=== PATIENT | female | born 1965 | race Caucasian/White ===

== ENCOUNTER 2020-07-27 07:40 | Outpatient (REF) | payer OTHER, SELFPAY ==
--- NOTE | 2020-07-27 07:50 | XR_ITS ---
EXAMINATION: XR CHEST CLINICAL INFORMATION: Encounter for screening for respiratory tuberculosis. COMPARISON: 2 views of the chest 07/10/2018 TECHNIQUE: 2 views of the chest were obtained. FINDINGS: Cardiomegaly mediastinal silhouette is normal. Lungs are clear without consolidation, pleural effusion or pneumothorax. No acute osseous abnormalities. IMPRESSION: No acute cardiopulmonary process.
== END 2020-07-27 07:41 | disposition home or self-care (01) ==
LOC: HO.XRAY 07:40
PROVIDERS: PCP Emergency Medicine; Visit Provider Emergency Medicine
DX: Z11.1 Encounter for screening for respiratory tuberculosis (principal)
CPT/HCPCS: 71046

== ENCOUNTER 2020-10-29 08:10 | Outpatient (REF) | payer OTHER, SELFPAY ==
--- NOTE | 2020-10-29 08:46 | MM_ITS ---
EXAMINATION: MM SCREENING DIGITAL BREAST TOMOSYNTHESIS, BILATERAL CLINICAL INFORMATION: Screening. Asymptomatic. The lifetime risk of breast cancer based on the Tyrer-Cuzick Model is 5%. COMPARISON: Mammography: 08/19/2019, 07/11/2018 TECHNIQUE: Digital breast tomosynthesis is performed in both the craniocaudal and mediolateral oblique views along with computer-aided detection (CAD). Synthesized 2D images are generated from the tomosynthesis. Additional left MLO view is provided. FINDINGS: There are scattered areas of fibroglandular density (ACR BI-RADS breast composition Category b). There are no significant masses, abnormal calcifications, or other abnormalities. There are vascular calcifications again noted anterior right breast and a few scattered round calcifications on the left. The bilateral axilla and skin contours are unremarkable. MM/MM tomosynthesis screening BI IMPRESSION: No mammographic evidence of malignancy. ASSESSMENT: BI-RADS 2: Benign RECOMMENDATION: Routine annual mammography screening. This patient's information was entered into a reminder system with a target due date for their next mammogram.
== END 2020-10-29 08:11 | disposition home or self-care (01) ==
LOC: HO.MAMMO 08:10
PROVIDERS: PCP Emergency Medicine; Visit Provider Emergency Medicine
DX: Z12.31 Encounter for screening mammogram for malignant neoplasm of breast (principal)
CPT/HCPCS: 77063; 77067

== ENCOUNTER 2020-11-18 16:12 | Outpatient (REF) | payer OTHER, SELFPAY | END 2020-11-18 16:13 | disposition home or self-care (01) | LOC: HO.LAB 16:12 | PROVIDERS: Visit Provider Internal Medicine | DX: Z20.822 Contact with and (suspected) exposure to COVID-19 (principal) | CPT/HCPCS: 36415; C9803; U0003 ==

== ENCOUNTER 2022-01-11 15:12 | Outpatient (REF) | payer MEDICAID, SELFPAY ==
--- NOTE | ~2022-01-11 | MM_ITS ---
EXAMINATION: MM SCREENING DIGITAL BREAST TOMOSYNTHESIS, BILATERAL CLINICAL INFORMATION: Screening. Asymptomatic. The lifetime risk of breast cancer based on the Tyrer-Cuzick Model is 5.4%. COMPARISON: Mammography: October 29, 2020 and studies dating back to February 05, 2014 TECHNIQUE: Digital breast tomosynthesis is performed in both the craniocaudal and mediolateral oblique views along with computer-aided detection (CAD). Synthesized 2D images are generated from the tomosynthesis. FINDINGS: There are scattered areas of fibroglandular density (ACR BI-RADS breast composition Category b). There are no significant masses, abnormal calcifications, or other abnormalities. MM/MM tomosynthesis screening BI IMPRESSION: There are no significant changes from prior study. ASSESSMENT: BI-RADS 1: Negative RECOMMENDATION: Routine annual mammography screening. This patient's information was entered into a reminder system with a target due date for their next mammogram.
== END 2022-01-11 15:13 | disposition home or self-care (01) ==
LOC: HO.MAMMO 15:12
PROVIDERS: PCP Family Medicine; Visit Provider Family Medicine
DX: Z12.31 Encounter for screening mammogram for malignant neoplasm of breast (principal)
CPT/HCPCS: 77063; 77067

== ENCOUNTER 2022-04-04 10:30 | Outpatient (REF) | payer MEDICAID, SELFPAY ==
--- NOTE | ~2022-04-04 | XR_ITS ---
EXAMINATION: XR CHEST CLINICAL INFORMATION: Encounter for respiratory tuberculosis. COMPARISON: Chest x-ray 07/27/2020 TECHNIQUE: 2 views of the chest were obtained. FINDINGS: No significant abnormality is noted involving the heart, lungs, mediastinum, bony thorax or soft tissues. XR/XR chest 2V IMPRESSION: Unremarkable chest examination.
== END 2022-04-04 10:31 | disposition home or self-care (01) ==
LOC: HO.XRAY 10:30
PROVIDERS: PCP Family Medicine; Visit Provider Family Medicine
DX: Z11.1 Encounter for screening for respiratory tuberculosis (principal)
CPT/HCPCS: 71046

== ENCOUNTER 2022-05-29 15:00 | Outpatient (RCR) | payer MEDICAID, SELFPAY ==
[2022-05-03 07:11] VITALS: BP 139/70; PULSE 69; O2SAT 95
== END 2022-06-06 11:46 | disposition home or self-care (01) ==
LOC: HO.PT 15:00
PROVIDERS: PCP Family Medicine; Visit Provider Family Medicine
DX: M54.2 Cervicalgia (principal)
CPT/HCPCS: 97110; 97112; 97161

== ENCOUNTER 2022-09-04 10:29 | Outpatient (REF) | payer MEDICAID, SELFPAY ==
[2022-09-04 11:33] LABS: COVID-19 Test Negative (Negative); IDNOW Serial# 9DB6401D
== END 2022-09-04 10:30 | disposition home or self-care (01) ==
LOC: HO.LAB 10:29
PROVIDERS: Visit Provider Internal Medicine
DX: Z20.822 Contact with and (suspected) exposure to COVID-19 (principal)
CPT/HCPCS: 87635; 99202; C9803

== ENCOUNTER 2023-01-17 08:27 | Outpatient (REF) | payer MEDICAID, SELFPAY ==
--- NOTE | ~2023-01-17 | MM_ITS ---
EXAMINATION: MM SCREENING DIGITAL BREAST TOMOSYNTHESIS, BILATERAL CLINICAL INFORMATION: Screening. Asymptomatic. The lifetime risk of breast cancer based on the Tyrer-Cuzick Model is 5%. COMPARISON: Multiple prior mammography, most recent 01/11/2022 TECHNIQUE: Digital breast tomosynthesis is performed in both the craniocaudal and mediolateral oblique views along with computer-aided detection (CAD). Synthesized 2D images are generated from the tomosynthesis. Additional bilateral MLO views are provided. FINDINGS: There are scattered areas of fibroglandular density (ACR BI-RADS breast composition Category b). There are no significant masses, abnormal calcifications, or other abnormalities. Parenchymal pattern is similar to prior studies. There is no developing density or architectural abnormality. The axilla and skin contours are unremarkable. No significant changes. MM/MM tomosynthesis screening BI IMPRESSION: No mammographic evidence of malignancy. ASSESSMENT: BI-RADS 1: Negative RECOMMENDATION: Routine annual mammography screening. This patient's information was entered into a reminder system with a target due date for their next mammogram.
== END 2023-01-17 08:28 | disposition home or self-care (01) ==
LOC: HO.MAMMO 08:27
PROVIDERS: PCP Family Medicine; Visit Provider Family Medicine
DX: Z12.31 Encounter for screening mammogram for malignant neoplasm of breast (principal)
CPT/HCPCS: 77063; 77067

== ENCOUNTER 2023-08-30 17:14 | Outpatient (REF) | payer MEDICAID, SELFPAY ==
[2023-08-30 17:28] LABS: Appearance Urine Cloudy; Color Urine Yellow; Glucose Urine UA >=1000 mg/dL (Negative); Leukocyte Esterase Urine Small (1+) (Negative); Nitrite Urine Negative (Negative); PH 5.5 (5.0-9.0); Specific Gravity - Urine 1.025 (1.005-1.025); UMIC TRIGGER UACC YES; Urine Blood Negative (Negative); Urine Ketones Negative (Negative); Urine Protein Negative (Neg-Trace)
[2023-08-30 17:34] LABS: Bacteria Urine 2+ (None Seen); Hyaline Casts Urine 0-2 /LPF (0-2); RBC Urine 0-2 /HPF (0-2); UACC Culture Trigger YES; WBC Urine >50 /HPF (0-5)
== END 2023-08-30 17:15 | disposition home or self-care (01) ==
LOC: HO.HHCLNP 17:14
PROVIDERS: Visit Provider Student in an Organized Health Care Education/Training Program
DX: R30.0 Dysuria (principal)
CPT/HCPCS: 81001; 87086; 87088; 87186

== ENCOUNTER 2023-10-09 08:07 | Outpatient (REF) | payer MEDICAID, SELFPAY ==
[2023-10-09 11:18] LABS: MANUAL DIFF FLAG NO
[2023-10-09 11:41] LABS: Basophils Percent Auto 0.3 % (0-2); Eosinophils Absolute Auto 0.2 X10*3/uL (0.0-0.4); Eosinophils Percent Auto 1.5 % (0-4); Hematocrit 44.3 % (37.0-47.0); Hemoglobin 14.9 g/dl (12.0-16.0); Imm Gran Abs Auto 0.03 X10*3/uL (0.00-0.03); Imm Gran Pct Auto 0.3 % (0.0-0.4); Lymphocytes Absolute Auto 3.9 X10*3/uL (1.2-4.9); Lymphocytes Percent Auto 33.3 % (20-40); Mean Corpuscular HGB Conc 33.6 g/dl (31.0-35.0); Mean Corpuscular Hemoglobin 28.5 pg (27.0-33.0); Mean Corpuscular Volume 84.7 fL (80.0-98.0); Mean Platelet Volume 11.2 fL (9.4-12.3); Monocytes Absolute Auto 0.7 X10*3/uL (0.1-1.2); Monocytes Percent Auto 5.8 % (2-11); Neutrophils Absolute Auto 6.8 x10*3/uL (2.0-8.3); Neutrophils Percent Auto 58.8 % (45-73); Platelet Count 209 X10*3/uL (160-400); Red Blood Count 5.23 X10*6/uL (4.20-5.50); Red Cell Distribution Width 12.7 % (11.0-16.0); White Blood Count 11.6 X10*3/uL (4.8-10.8)
[2023-10-09 12:22] LABS: Alanine Aminotransferase 13 U/L (0-31); Albumin Level 4.2 g/dL (3.5-5.0); Alkaline Phosphatase 76 U/L (39-117); Anion Gap 12 (12-20); Aspartate Amino Transferase 16 U/L (5-31); Bilirubin Total 0.5 mg/dL (0.0-1.0); Blood Urea Nitrogen 13 mg/dL (9-16); Calcium 9.8 mg/dL (8.4-10.2); Carbon Dioxide 27 mmol/L (22-29); Chloride 105 mmol/L (96-108); Cholesterol 160 mg/dL (<200); Estimated Glomerular Filt Rate > 60; Glucose Random 155 mg/dL (60-115); HDL Cholesterol 56 mg/dL (>40); LDL Cholesterol Calculated 87 mg/dL (<100); Potassium 4.4 mmol/L (3.3-5.1); Sodium 140 mmol/L (135-145); Total Protein 7.7 g/dL (6.5-8.0); Triglycerides 89 mg/dL (<150)
== END 2023-10-09 08:08 | disposition home or self-care (01) ==
LOC: HO.HHCL 08:07
PROVIDERS: Visit Provider Family Medicine
DX: E66.9 Obesity, unspecified (principal)
CPT/HCPCS: 36415; 80053; 80061; 84443; 85025

== ENCOUNTER 2023-12-23 10:09 | Outpatient (REF) | payer MEDICAID, SELFPAY ==
[2023-12-23 14:24] LABS: MANUAL DIFF FLAG NO
[2023-12-23 14:35] LABS: Basophils Percent Auto 0.5 % (0-2); Eosinophils Absolute Auto 0.2 X10*3/uL (0.0-0.4); Eosinophils Percent Auto 2.3 % (0-4); Hematocrit 41.9 % (37.0-47.0); Hemoglobin 14.3 g/dl (12.0-16.0); Imm Gran Abs Auto 0.02 X10*3/uL (0.00-0.03); Imm Gran Pct Auto 0.2 % (0.0-0.4); Lymphocytes Absolute Auto 3.5 X10*3/uL (1.2-4.9); Lymphocytes Percent Auto 42.8 % (20-40); Mean Corpuscular HGB Conc 34.1 g/dl (31.0-35.0); Mean Corpuscular Hemoglobin 28.5 pg (27.0-33.0); Mean Corpuscular Volume 83.5 fL (80.0-98.0); Mean Platelet Volume 11.2 fL (9.4-12.3); Monocytes Absolute Auto 0.6 X10*3/uL (0.1-1.2); Monocytes Percent Auto 6.7 % (2-11); Neutrophils Absolute Auto 3.9 x10*3/uL (2.0-8.3); Neutrophils Percent Auto 47.5 % (45-73); Platelet Count 200 X10*3/uL (160-400); Red Blood Count 5.02 X10*6/uL (4.20-5.50); Red Cell Distribution Width 12.5 % (11.0-16.0); White Blood Count 8.2 X10*3/uL (4.8-10.8)
[2023-12-23 15:17] LABS: Erythrocyte Sedimentation Rate 10 MM/HR (0-20)
[2023-12-23 15:21] LABS: Alanine Aminotransferase 14 U/L (0-31); Albumin Level 3.8 g/dL (3.5-5.0); Alkaline Phosphatase 66 U/L (39-117); Anion Gap 13 (12-20); Aspartate Amino Transferase 15 U/L (5-31); Bilirubin Total 0.6 mg/dL (0.0-1.0); Blood Urea Nitrogen 8 mg/dL (9-16); C Reactive Protein 0.33 mg/dL (< or = 0.50); Calcium 9.2 mg/dL (8.4-10.2); Carbon Dioxide 28 mmol/L (22-29); Chloride 105 mmol/L (96-108); Estimated Glomerular Filt Rate > 60; Glucose Random 124 mg/dL (60-115); Potassium 3.9 mmol/L (3.3-5.1); Sodium 142 mmol/L (135-145)
[2023-12-23 15:40] LABS: TSH reflex Free T4 0.54 uIU/mL (0.32-4.0); Vitamin D 25-OH Total 38.6 ng/mL (>30)
[2023-12-24 07:54] LABS: HIV AB/AG Nonreactive (Nonreactive); HIV Num 1 0.05 S/CO (0.00-0.99); ~Hepatitis C Antibody Nonreactive (Nonreactive)
== END 2023-12-23 10:10 | disposition home or self-care (01) ==
LOC: HO.CHCLDS 10:09
PROVIDERS: Visit Provider Family Medicine
DX: Z11.4 Encounter for screening for human immunodeficiency virus [HIV] (principal); L29.9 Pruritus, unspecified
CPT/HCPCS: 36415; 80053; 82306; 84443; 85025; 85652; 86140; 86803; 87389

== ENCOUNTER 2023-12-24 07:38 | Outpatient (REF) | payer MEDICAID, SELFPAY ==
[2023-12-27 16:29] LABS: Zinc 60 mcg/dL (60-130)
== END 2023-12-24 07:39 | disposition home or self-care (01) ==
LOC: HO.LAB 07:38
PROVIDERS: PCP Family Medicine; Visit Provider Family Medicine
DX: L29.9 Pruritus, unspecified (principal)
CPT/HCPCS: 36415; 84630

== ENCOUNTER 2024-01-21 16:26 | Outpatient (REF) | payer MEDICAID, SELFPAY | END 2024-01-21 16:27 | disposition home or self-care (01) | LOC: HO.MAMMO 16:26 | PROVIDERS: PCP Family Medicine; Visit Provider Family Medicine | DX: Z12.31 Encounter for screening mammogram for malignant neoplasm of breast (principal) | CPT/HCPCS: 77063; 77067 ==

== ENCOUNTER → 2024-01-21 16:30 | Outpatient (BNV) | payer MEDICAID, SELFPAY | PROVIDERS: PCP Family Medicine; Visit Provider Radiology Diagnostic Radiology | DX: Z12.31 Encounter for screening mammogram for malignant neoplasm of breast (principal) | CPT/HCPCS: 77063; 77067 ==

== ENCOUNTER 2024-02-06 17:49 | Outpatient (REF) | payer MEDICAID, SELFPAY | END 2024-02-06 17:50 | disposition home or self-care (01) | LOC: HO.CHCLNP 17:49 | PROVIDERS: Visit Provider Family Medicine | DX: Z12.4 Encounter for screening for malignant neoplasm of cervix (principal) | CPT/HCPCS: 88142 ==

== ENCOUNTER 2024-07-04 08:47 | Outpatient (REF) | payer MEDICAID, SELFPAY ==
--- NOTE | ~2024-07-04 | MR_ITS ---
EXAMINATION: MR BRAIN WITHOUT CONTRAST CLINICAL INFORMATION: Chronic daily headache. COMPARISON: None available. TECHNIQUE: MRI of the brain was obtained using routine sequences without contrast. FINDINGS: No focal restricted diffusion is demonstrated to suggest acute or subacute cerebral ischemia. No evidence of acute or chronic hemorrhagic products on heme-sensitive imaging. Scattered periventricular and deep white matter T2 FLAIR hyperintensities most commonly seen with mild underlying microangiopathy. Proportional prominence of the ventricles and sulcal spaces without evidence of obstructive hydrocephalus. No abnormal mass effect. No midline shift. Normal appearance of the pituitary gland. Normal positioning of the cerebellar tonsils. Normal arterial and venous vascular flow voids are present. Normal, homogeneous marrow signal. Mild mucosal thickening of the paranasal sinuses. No signal abnormalities within the mastoids. MR/MR head/brain wo con IMPRESSION: 1. No acute intracranial abnormalities. 2. Mild nonspecific white matter changes most commonly seen with mild underlying microangiopathy. Electronically signed by: Stevie Parmar DO 07/04/2024 09:45 AM EDT
== END 2024-07-04 08:48 | disposition home or self-care (01) ==
LOC: HO.MRI 08:47
PROVIDERS: PCP Family Medicine; Visit Provider Family Medicine
DX: G44.52 New daily persistent headache (NDPH) (principal); G89.29 Other chronic pain
CPT/HCPCS: 70551

== ENCOUNTER 2024-07-07 09:00 | Outpatient (RCR) | payer MEDICAID, SELFPAY ==
[2024-07-01 09:58] VITALS: BP 115/59
== END 2024-08-25 10:11 | disposition home or self-care (01) ==
LOC: HO.PT 09:00
PROVIDERS: PCP Family Medicine; Visit Provider Family Medicine
DX: S03.00XD Dislocation of jaw, unspecified side, subsequent encounter (principal)
CPT/HCPCS: 97110; 97140; 97162

== ENCOUNTER 2024-09-03 11:33 | Outpatient (REF) | payer MEDICAID, SELFPAY ==
[2024-09-06 04:43] LABS: TS Negative Control Passed; TS Panel A 9; TS Panel B 0; TS Positive Control Passed; TSpotTB Positive (Negative)
== END 2024-09-03 11:34 | disposition home or self-care (01) ==
LOC: HO.CHCLDS 11:33
PROVIDERS: Visit Provider Family Medicine
DX: Z11.1 Encounter for screening for respiratory tuberculosis (principal)
CPT/HCPCS: 36415; 86481

== ENCOUNTER 2024-09-09 08:38 | Outpatient (REF) | payer MEDICAID, SELFPAY ==
--- NOTE | ~2024-09-09 | XR_ITS ---
EXAMINATION: XR CHEST CLINICAL INFORMATION: 59 yo F with hx of positive T spot, needs assessment and treatment COMPARISON: Chest radiograph dated 04/04/2022. TECHNIQUE: 2 views of the chest were obtained. FINDINGS: The lungs are clear. The cardiomediastinal silhouette is normal in size. There is no pleural effusion or pneumothorax. No acute osseous abnormality. XR/XR chest 2V IMPRESSION: No acute cardiopulmonary findings. Electronically signed by: Michael Garcia MD 09/09/2024 10:45 AM DREW
== END 2024-09-09 08:39 | disposition home or self-care (01) ==
LOC: HO.HHCX 08:38
PROVIDERS: Visit Provider Family Medicine
DX: Z22.7 Latent tuberculosis (principal)
CPT/HCPCS: 71046

== ENCOUNTER 2024-10-27 06:24 | Outpatient (REF) | payer MEDICAID, SELFPAY ==
--- NOTE | 2024-10-27 | EMG_ITS ---
Left median and ulnar motor and sensory studies were performed. Left radial sensory study was performed, and paraspinal muscles were tested with a needle. IMPRESSION: Mild left ulnar neuropathy across cubital tunnel. MD GONZALO Maddox/IRWIN / [phone]
== END 2024-10-27 06:25 | disposition home or self-care (01) ==
LOC: HO.NEURO 06:24
PROVIDERS: PCP Family Medicine; Visit Provider Family Medicine
DX: M79.2 Neuralgia and neuritis, unspecified (principal)
CPT/HCPCS: 95886; 95910

== ENCOUNTER 2024-11-10 12:40 | Outpatient (AMB) | payer MEDICAID, SELFPAY ==
[2024-11-10 12:50] VITALS: BMI 38.9
--- NOTE | 2024-11-10 12:50 | MHC.OFFVIS ---
Vital Signs 11/10/24 12:50 Height 5 ft 1 in Weight 206 lb BMI 38.9 Intake Visit Reasons: Right shoulder pain and weakness Intake Note: Kristine is a 59 year old right hand dominant female who presents with complaints of progressively worsening right shoulder pain and weakness. She describes her pain as sharp and severe in nature. Most of the pain is along the lateral and superior aspects of her shoulder. Her pain has gotten worse over the last few years in spite of continued non operative treatments. The patient states that she has had 3 cortisone injections in the past. The most recent injection gave her minimal relief. She has failed the last 6 weeks of conservative treatment which has included physical therapy exercises, Tylenol and anti-inflammatory medicines. The patient reports weakness when lifting her right hand above shoulder height. Allergies metformin Adverse Reaction (Severe, Verified 11/10/24 12:57) Diarrhea Medication List - Last Reconciled 11/10/24 by Bacilio Vernon MD aspirin 81 mg PO BEDTIME cholecalciferol (vitamin D3) (Vitamin D3) 50 mcg PO QAM gabapentin 600 mg PO BEDTIME glipizide ER 10 mg PO QAM insulin glargine (Lantus Solostar U-100 Insulin) 44 units subcut DAILY lisinopril 5 mg PO QAM pravastatin 80 mg PO BEDTIME tirzepatide (Mounjaro) mg subcut PFSH Medical History (Updated 11/10/24 @ 13:12 by Bacilio Vernon MD) Diabetes Hypercholesteremia Hypertension Social History (Updated 11/10/24 @ 12:53 by JOSE LUIS Bermudez) Alcohol intake: never Patient Tobacco Use Status: Never used Tobacco Current occupation: rt handed Physical Exam Vital Signs: BMI result Body Mass Index 38.9 Const Other: Well-nourished well-developed very friendly female awake alert and oriented x3 in no acute distress Extrem Other: Bilateral upper extremity examination shows good capillary refill, no skin lesions noted, normal sensation light touch Right shoulder examination shows decreased range of motion when compared to her left shoulder, 4+ out of 5 strength with supraspinatus testing, positive impingement signs, tenderness over her acromioclavicular joint, no instability Results Reviewed Results Reviewed: X-rays of the patient's right shoulder show severe acromioclavicular joint narrowing, a type 2 acromion, a calcium deposit within the supraspinatus tendon, no acute bony abnormalities Assessment & Plan Assessment & Plan (1) Rotator cuff insufficiency of right shoulder: Code(s): M25.311 - Other instability, right shoulder Category: Medical Plan Ms. Mata presents with progressively worsening right shoulder pain and weakness due to impingement syndrome, acromioclavicular joint arthritis and possible full-thickness rotator cuff tearing. Thus, I will send the patient for an MRI of her right shoulder for further evaluation. I will see her back once the MRI is completed to discuss the findings and treatment options. Feel free to call me at any time should questions regarding her orthopedic management arise. Thank you very much for asking me to see this very friendly patient. I spent 22 minutes in reviewing the patient's records and imaging studies, seeing the patient and documenting in the medical record. Orders: Orders XR shoulder RT min 2V 11/10/24 M25.511 - Pain in right shoulder MR shoulder RT wo con 11/10/24 M25.311 - Other instability, right shoulder Coding Level of Care Code New Pt Level 3 (78442) Complex EM visit Add On G2211 Diagnoses Rotator cuff insufficiency of right shoulder M25.311
--- OUTSIDE RECORDS SUMMARY | 2024-11-10 14:12 | XMS_ITS | Encounter Summary ---
Author Organization [employer] Address [address] [place] [address] Care Team Providers Care Water Superintendent Name Role Phone Christa Topete MD Primary Care Provider [phone] Reason for Visit * Reason Comments Med Change Request Encounter Details Date Type Department Care Team ([facility] st Contact Info) Description 02/10/2024 Refill [facility] MED & PEDS [address], [place] [phone] Christa Topete MD [address] [place] [address] Social History Tobacco Use Types Packs/Day Years Used Date Smoking Tobacco: Never Passive Smoke Exposure: Never Smokeless Tobacco: Never Alcohol Use Standard Drinks/Week Comments Never 0 (1 standard drink = 0.6 oz pur e alcohol) Depression Answer Date Recorded Patient Health Questionnaire-9 Score 8 01/31/2023 Housing Stability Answer Date Recorded What is your housing situation today? I have oumou corbin 08/13/[address] you li ve. Do you have problems with any of the following? None of the above 08/13/2023 Food Insecurity Answer Date Recorded Within the past 12 months, y ou worried that your food would run out before you got money to buy more: Never True 08/13/2023 Within the past 12 months,th e food you bought just didn't last and you didn't have enough money to get more: Never True Transportation Answer Date Recorded In the past 12 months, has l ack of transportation kept you from medical appts, meetings, work or from getting things needed for daily living? No 08/13/2023 Utilities Answer Date Recorded In the past 12 months, has t he electric, gas, oil or water company threatened to shut off services in your home? No 08/13/2023 Depression Answer Date Recorded Patient Health Questionnaire-2 Score 4 01/31/2023 Comments Unknown Sex and Gender Information Value Date Recorded Sex Assigned at Female 08/20/2022 10:21 AM EDT Legal Sex Female 10:21 AM EDT Gender Identity Female 08/20/2022 10:21 AM EDT Sexual Orientation Straight 08/20/2022 10 :21 AM EDT documented as of this encounter Plan of Treatment Not on file documented as of this encounter Visit Diagnoses Not on filedocumented in this encounter Additional Health Concerns Assessment Noted Time PHQ-9 Depression Total Score: 8 02/01/20 23 9:11 AM EDT documented as of this encounter Care Teams Water Superintendent Relationship Specialty Start Date End Date Christa Topete MD [address] [place] [address] PCP - General Family Medicine 09/13/21 documented as of this encounter
--- OUTSIDE RECORDS SUMMARY | 2024-11-10 14:12 | XMS_ITS | Encounter Summary ---
Author Organization [employer] Address [address] [facility] [address] [place] [address] Care Team Providers Care Spinner Open End Name Role Phone Christa Topete MD Primary Care Provider [phone] Reason for Visit * Reason Onset Date Comments Nurse Triage 05/30/2023 Encounter Details Date Type Department Care Team ([facility] st Contact Info) Description 05/30/2023 Telephone [facility] MED[facility] [address] [place] [address] Christa Topete MD [address] [place] [phone] Nurse Triage Social History Tobacco Use Types Packs/Day Years Used Date Smoking Tobacco: Never Passive Smoke Exposure: Never Smokeless Tobacco: Never Alcohol Use Standard Drinks/Week Comments Never 0 (1 standard drink = 0.6 oz pur e alcohol) Depression Answer Date Recorded Patient Health Questionnaire-9 Score 8 01/31/2023 Depression Answer Date Recorded Patient Health Questionnaire-2 Score 4 01/31/2023 Comments Unknown Sex and Gender Information Value Date Recorded Sex Assigned at Female 08/20/2022 10:21 AM EDT Legal Sex Female 10:21 AM EDT Gender Identity Female 08/20/2022 10:21 AM EDT Sexual Orientation Straight 08/20/2022 10 :21 AM EDT documented as of this encounter Miscellaneous Notes * Telephone Encounter - Cr Lafleur RN - 05/31/2023 9:56 AM EDT Please review triage note below. Pt has f/u scheduled on 06/07/23 for DM f/u. * Telephone Encounter - Lara Lundy RN - 05/30/2023 12:16 PM EDT called pt to triage, spoke to pt. pt states her mother is very ill and she has to go to [place] shortly.pt requesting appt with PCP to talk about some chronic issues and her medications. pt states blood sugars about 2 hours after eating are in the 300-360 range which is higher than usual due to stress from her family situation. pt also states intermittent chest tightness that she has had for a long time now. pt reports intermittent palpitations as well. advised no available appt to schedule with her PCP at this time and offered appt today in [facility], declined. advised can see another provider regarding concerns and follow up as needed with PCP. pt states will not be back for at least 2 months. again offered appt today with [facility], declined. advised ER evaluation if severe symptoms, continue medications as prescribed, and call back if she wants an appt. pt understands communication. states only wants to see her PCP. will task to team nurses to follow up as needed. Protocol Used: Diabetes - High Blood Sugar (Adult) Protocol-Based Disposition: See in Office or Video Visit Today Video visit not offered Positive Triage Question: * Patient wants to be seen * All higher-acuity triage questions were negative Care Advice Discussed: * High Blood Sugar (Hyperglycemia) * Continue Insulin * Continue Diabetes Pills * Measure and Record Your Blood Glucose * Reasons To Call Back - Blood glucose over 300 mg/dL (16.7 mmol/L), two or more times in a row. - Urine ketones become moderate or large (or more than 1+); if you check blood ketones, blood ketone test is over 1.4 mmol/L - Vomiting lasting over 4 hours or unable to drink any fluids - Rapid breathing occurs - You have more questions - You become worse * Telephone Encounter - Nohemi Villa - 05/30/2023 12:06 PM EDT Symptom: Chest Pain - Adult Outcome: Transfer to a nurse or provider NOW! Reason: Severe pain now, high blood sugar. The caller accepted this outcome Please contact at [phone] documented in this encounter Plan of Treatment Not on file documented as of this encounter Visit Diagnoses Not on filedocumented in this encounter Additional Health Concerns Assessment Noted Time PHQ-9 Depression Total Score: 8 02/01/20 23 9:11 AM EDT documented as of this encounter Care Teams Spinner Open End Relationship Specialty Start Date End Date Christa Topete MD [address] [place] [id number] PCP - General Family Medicine 09/13/21 documented as of this encounter
--- OUTSIDE RECORDS SUMMARY | 2024-11-10 14:12 | XMS_ITS | Clinical Summary ---
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) TEST BLOOD SUGAR FOUR TIMES DAILY 100 strip 11 12/04/19 23 Active glucose blood (FREESTYLE LITE) test strip Use 1 by To Skin route 4 times every day 09/13/20 21 Active Blood Glucose Monitoring Suppl (FreeStyle Lyons Lite) w/Device kit TEST BLOOD SUGAR FOUR TIMES DAILY 08/15/20 22 Active Lantus SoloStar 100 UNIT/ML pen 562 Units. Pat using 62 units HS 01/05/20 23 Active B-D ULTRAFINE III SHORT PEN 31G X 8 MM misc USE DIRECTED DAILY WITH INSULIN 01/30/20 23 Active TRUEplus Lancets 33G misc TEST BLOOD SUGAR FOUR TIMES DAILY 01/31/20 23 Active insulin lispro (HumaLOG) 100 UNIT/ML injection INJECT SUBCUTANEOUSLY THREE TIMES DAILY 10 MINUTES BEFORE MEALS DIRECTED PER SLIDING SCALE; 100-149 INJECT 10 UNITS; 150-199 12 UNITS; 200-249 14 UNITS; 250-299 16 UNITS; 300-349 18 UNITS; 350-399 20 UNITS; >400 22 UNITS 03/19/20 23 Active glipiZIDE (Glucotrol) 10 MG tablet Take 1 tablet (10 mg) by mouth before breakfast and before evening meal. 180 tablet 1 04/01/20 23 Active butalbital-acet aminophen-caffe ine 50-325-40 MG tabletIndicatio ns:Other migraine without status migrainosus, not intractable TAKE 1 OR 2 TABLETS BY MOUTH EVERY 4 HOURS NEEDED. NO MORE THAN 6 TABLETS IN 24 HOURS 20 tablet 06/04/20 23 Active Alcohol Swabs (Alcohol Prep) 70 % pads USE DIRECTED TO INJECT INSULIN AND TEST BLOOD SUGAR. MAX 5 PER DAY 08/23/20 Active clotrimazole (Lotrimin) 1 % vaginal cream USE DIRECTED TOPICALLY ON AFFECTED AREA(S) TWICE DAILY 08/30/20 23 Active Multiple Vitamin (One-Daily Multi-Vitamin) tablet Take 1 tablet by mouth in the morning. 09/10/20 23 Active Continuous Blood Gluc Ice Cream Freezer Helper (IMVUStyle John 2 [place]) device TEST BLOOD SUGAR FOUR TIMES DAILY DIRECTED 1 each 11/08/19 24 Active chlorhexidine (Peridex) 0.12 % solution Use 15 ml to rinse twice daily. 473 mL 12/19/19 24 Active gabapentin (Neurontin) 600 MG tablet Take 600 mg by mouth at bedtime. 10/22/19 24 Active glucose blood test strip See Instructions, # 100 each, Refills 11, Tot. Refills 11, Maintenance, use as directed for Type 2 Diabetes Mellitus on insulin to test blood sugar up to 3 times per day, 08/23/23 9:33:00 EDT, Supply, 158, cm, 08/23/23 7:34:00 EDT, Height, 92, kg, ... 08/23/20 23 Active ondansetron (Zofran) 4 MG tablet Take 1 tablet (4 mg) by mouth every 8 (eight) hours if needed for nausea or vomiting. 40 tablet 02/06/20 24 Active lisinopril 5 MG tablet TAKE 1 TABLET BY MOUTH EVERY MORNING 90 tablet 3 02/12/20 24 Active acetaminophen (Tylenol Extra Strength) 500 MG tablet Take 1 tablet (500 mg) by mouth every 8 (eight) hours if needed for mild pain. 60 tablet 02/20/20 24 Active ibuprofen 600 MG tablet TAKE 1 TABLET BY MOUTH THREE TIMES DAILY 90 tablet 04/03/20 24 Active benzonatate (Tessalon) 200 MG capsule TAKE 1 CAPSULE BY MOUTH THREE TIMES DAILY IN THE MORNING, AT NOON, AND AT BEDTIME NEEDED FOR COUGH FOR UP TO 7 DAYS DO NOT BREAK, CRUSH, DISSOLVE OR CHEW 20 capsule 04/17/20 24 Active Multiple Vitamin (multivitamin) tablet Take 1 tablet by mouth Once per day. Women 50+ Advanced Active Magnesium Oxide, Laxative, 500 MG tablet Take 500 mg by mouth Once per day. Active propranolol (Inderal) 10 MG tablet TAKE 1 TABLET BY MOUTH EVERY DAY 90 tablet 06/25/20 24 Active Pain Reliever Plus 250-250-65 MG tablet TAKE 2 TABLETS BY MOUTH EVERY 8 HOURS NEEDED FOR HEADACHE 30 tablet 06/25/20 24 Active Clotrimazole Anti-Fungal 1 % creamIndication s:Tinea pedis of both feet APPLY TOPICALLY TO AFFECTED AREA(S) TWICE DAILY 90 g 06/25/20 24 Active D3 Super Strength 50 MCG (2000 UT) capsule TAKE 1 CAPSULE BY MOUTH EVERY MORNING 120 capsule 1 06/29/20 24 Active pravastatin (Pravachol) 80 MG tablet TAKE 1 TABLET BY MOUTH AT BEDTIME 90 tablet 1 07/29/20 24 Active Aspirin Low Dose 81 MG EC tablet TAKE 1 TABLET BY MOUTH AT BEDTIME 90 tablet 1 07/29/20 24 Active loperamide (Imodium) 2 MG capsule TAKE 2 CAPSULES BY MOUTH ONCE AFTER FIRST LOOSE STOOL. THEN TAKE 1 CAPSULE BY MOUTH AFTER EACH LOOSE STOOL DIRECTED. NO MORE THAN 8 CAPSULES IN 24 HOURS. 180 capsule 3 07/29/20 24 Active ammonium lactate (Amlactin) 12 % cream APPLY TOPICALLY NEEDED FOR DRY SKIN 140 g 5 08/31/20 24 Active cyclobenzaprine (Flexeril) 5 MG tablet 30 each, 0 Refill(s), TAKE 1 TABLET BY MOUTH THREE TIMES DAILY FOR 10 DAYS, 0 Refills, 08/12/24 8:12:00 AM EDT, Partial fill upon patient request if the prescription is for a schedule II opioid drug. 08/12/20 24 Active Mounjaro 15 MG/0.5ML solution auto-injector 08/12/20 24 Active Blood Pressure kit 1 kit 2 times daily. 1 kit 11/06/19 25 026 Active Active Problems Problem Noted Date Diagnosed Date Neuropathic pain of finger of left hand 09/28/20 Assessment & Plan (09/28/2024 11:31 AM EST): Ordering EMG for further evaluation. Latent tuberculosis by blood test 09/28/2024 Assessment & Plan (09/28/2024 11:32 AM EST): Explained to Pt she does not have active TB and advised to complete treatment at earliest convenience. New persistent daily headache 05/25/2024 Assessment & Plan (05/25/2024 11:21 AM EDT): Ordering MRI to r/o neurological issues. TMJ (dislocation of temporom andibular joint), initial encounter 05/25/2024 Assessment & Plan (05/25/2024 11:27 AM EDT): Referral to Physical Therapy. Prescribing Excedrin, Flexeril, and Inderal for symptoms. F/u in 8 weeks. Relevant Medications Keyvlqb-Aiutlcuvggpdw-Fupmyjow ( Excedrin Migraine) 250-250-65 MG tablet Cyclobenzaprine (Flexeril) 5 MG tablet Propranolol (Inderal) MG tablet Pruritus 12/23/2023 Chronic right shoulder pain 10/07/2023 Assessment & Plan (09/28/2024 11:31 AM EST): Advised pt to continue PT sessions, referral to Orthopaedic Surgery for further evaluation. Assessment & Plan (03/03/2024 10:19 AM EDT): Patient had joint injection of the R shoulder, tolerated procedure well. Improvement of ROM Assessment & Plan (10/07/2023 4:26 PM EST): Patient that presented visit with complaints of R shoulder pain will be having a steroid injection procedure administered of at the time of visit. Tolerated procedure well and range of motion improved after injection. Burning sensation of skin 10/03/2023 Assessment & Plan (10/03/2023 5:19 PM EST): Unknown precipitant no rashes appreciate on examination. Will need to monitor, uncontrolled DM likely contributing. Dysuria 09/01/2023 Assessment & Plan (09/01/2023 2:03 PM EST): 01/2023 cr 0.47 GFR 110 Urine dipstick Gl >1000,ketones neg, nitrates neg, LE trace symptoms of UTI for the past week w no alarming symptoms -12/2021 uCX : Greater than 100,000 CFU/mL of Escherichia coli S to Nitrofurantoin,cefazolin not reported ,resistant to ampicillin -px today empirically macrobid BID x 5 days -reports hx ot taking macrobid before w no problems , if symptoms recurs may need renal /bladder eval and possibly urologist -UA w reflex ml -pyridium x 2 days Diabetes due to undrl condition w oth diabetic n euro comp 08/22/2023 Assessment & Plan (09/01/2023 2:04 PM EST): -Urine dipstick Gl >1000,ketones neg H1AC 9.2 , CBG 247 - incrased last week her mounjaro to 7.5 mg weekly, -continue to f w PCP Diarrhea 02/11/2023 Chronic intractable headache 02/11/2023 Assessment & Plan (02/11/2023 11:37 AM EDT): Patient with complaints of frequent headaches, present daily. At this point will refer to nuerology for further evaluation. Right leg pain 02/11/2023 Rash 01/31/2023 Nonspecific reaction to tuberculin test 02/01/20 23 Vague bodily discomfort 01/31/2023 Assessment & Plan (02/11/2023 11:49 AM EDT): Patient with continue internal shakes. At this point will send for an EMG study and refer to neurology. Assessment & Plan (01/31/2023 10:16 AM EDT): Patient with feeling of internal bilateral leg shakes. Denies feeling of instability. Will send labs and refer to neurology. Class 2 obesity 05/17/2014 Assessment & Plan (12/23/2023 8:56 AM EST): Discussed calorie deficit, recommended reduction of 20-30% of maintenance calories. Recommended to decrease soda and sugary beverage consumption. Recommended at least 20 g per meal of protein to assist with satiety. Recommended at least 150 min/week of moderate intensity exercise. Patient is on Satjauro due to her diabetes which should help with weight management. Assessment & Plan (10/07/2023 4:26 PM EST): Discussed calorie deficit, recommended reduction of 20-30% of maintenance calories; experience design director referral offered. Recommended to decrease soda and sugary beverage consumption. Recommended at least 20 g per meal of protein to assist with satiety. Recommended at least 150 min/week of moderate intensity exercise. In addition, patient will be sent for labs for further evaluation. -Labs: CBC, Comp. Metabolic Panel, Lipid Panel, TSH/FT4. Hypertension 02/23/2013 Assessment & Plan (12/23/2023 9:30 AM EST): Controlled, f/up 4 months Assessment & Plan (04/01/2023 9:31 AM EDT): Encouraged consistent monitoring at home. Will follow up with nurse in 2 weeks to assess home readings and recheck BP. If elevated at home as well will consider increasing lisinopril to 5 mg. Hyperlipidemia 02/23/2013 Depression 02/23/2013 Type 2 diabetes mellitus wit hout complication, with long-term current use of insulin 03/31/2012 Assessment & Plan (09/28/2024 11:32 AM EST): GMI 7.3%. TIR 65%. TAR 35%. Continue to follow up with Burr Grinder. Assessment & Plan (05/25/2024 11:28 AM EDT): Continue on current medication. Goal A1c <7, improving but still elevated. Assessment & Plan (02/06/2024 4:22 PM EDT): Per patient was told by endocrinology she is being discharge, this was not communicated to this provider, not that we will be taking over this prescription. Did send refill for sensors. Rx send for Monjauro but if insurances does not approve, strongly recommended to discuss with endocrinology. Assessment & Plan (12/23/2023 9:29 AM EST): Currently on monjauro 12, cont insulin, & glipizide. Target < 7%. Cont f/up endo Assessment & Plan (04/01/2023 9:30 AM EDT): Improved. Encouraged implementation of diet modifications. Offer referral to experience design director, patient denied. Will restart glipizide at 10 mg. Will follow up in 3 months. ppt with die drawing checker scheduled for 04/15/23. 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 Will lower lantus from 55 units to 51 units and start on Januvia 100mg. Will also hold metformin for x2 weeks due to chronic diarrhea and follow up in 2-3 weeks. Assessment & Plan (02/11/2023 11:39 AM EDT): Patient with elevated fasting glucose at time of visit with a reading of 325 mg/dL. Advised to pickers material handlers sensor and consistently monitor levls at home. Instructed to hold metformin and will follow up in 2 weeks to assess. Encounters Date Type Department Care Team Description 11/06/2024 Telephone [facility] [address] [place] [address] Christa Topete MD 11/04/2024 Telephone [facility] MEDICINE [address] [place] [phone] Christa Topete MD 11/02/2024 Telephone [facility] [address], [place] [phone] Christa Topete MD 10/15/2024 Refill [facility] & PEDS [address] [place] [address] Christa Topete MD 09/28/2024 11:00 AM EST Office Visit [facility] [address] [place] [address] Christa Topete MD Type 2 diabetes mellitus without complication, with long-term current use of insulin ([facility]) (Primary Dx); Neuropathic pain of finger of left hand; Chronic right shoulder pain; Latent tuberculosis by blood test 09/28/2024 Travel 09/07/2024 Telephone [facility] [address] [place] [address] Chris Gasca MA Results 09/02/2024 Telephone [facility] [address] [place] [address] Christa Topete MD Lab Orders 08/31/2024 Telephone [facility] ADULT DENTAL [address] [place] [address] Sunil Coronado DDS 08/30/2024 Refill [facility] [address] [place], [place] [phone] Christa Topete MD from Last 3 Months Immunizations Name Administration Dates Next Due Influenza injectable quadriv alent IIV4 with preservative 07/10/2018,07/08/2017,08/06/2016 Influenza injectable quadriv alent preservative free 09/27/2021,07/11/2020,08/18/2019 Influenza, IIV3, injectable 07/16/2014, 0 Influenza, Split (incl. kinsey fied surface antigen) 06/23/2013 Meningococcal Polysaccharide A,C,Y,W-135 TT Conjugate 02/04/2024 Pneumococcal Conjugate PCV 20 12/23/2023 Pneumococcal Polysaccharide PPSV23 01/04/2011 Tdap 12/23/2023,01/04/2011 Zoster, Recombinant 05/05/2024,12/27/2023 Social History Tobacco Use Types Packs/Day Years Used Date Smoking Tobacco: Never Passive Smoke Exposure: Never Smokeless Tobacco: Never Tobacco Cessation:Counseling Given: Not Answered Alcohol Use Standard Drinks/Week Comments Never 0 (1 standard drink = 0.6 oz pur e alcohol) Depression Answer Date Recorded Patient Health Questionnaire-9 Score 3 09/28/2024 Patient Health Questionnaire-9 Score 3 09/28/2024 Last PHQ-9: Questionnaire Data Not on file 1 11/29/2023 Housing Stability Answer Date Recorded What is [...] Answer Date Recorded Patient Health Questionnaire-2 Score 2 09/28/2024 Comments Unknown Sex and Gender Information Value Date Recorded Sex Assigned at Female 08/20/2022 10:21 AM EDT Legal Sex Female 10:21 AM EDT Gender Identity Female 08/20/2022 10:21 AM EDT Sexual Orientation Straight 08/20/2022 10 :21 AM EDT Last Filed Vital Signs Vital Sign Reading Time Taken Comments Blood Pressure 126/74 09/28/2024 10:47 AM EST Pulse 78 09/28/2024 10:47 AM EST Temperature 36.5 ??C (97.7 ??F) 09/28/2024 10:[address] Respiratory Rate 20 09/28/2024 10:47 AM EST Oxygen Saturation 98% 09/28/2024 10:47 AM EST Inhaled Oxygen Concentration - - Weight 89.9 kg (198 lb 3.2 oz) 09/28/2024 10:47 AM EST Height 156 cm (5' 1.42 ) 09/28/2024 10:47 AM EST Body Mass Index 36.94 09/28/2024 10:47 AM EST Plan of Treatment Health Maintenance Due Date Last Done Comments CT Colonography 1965 FIT DNA/Cologuard 1965 FIT 1965 FOBT 1965 Sigmoidoscopy 1965 Eye Exam 1974 HPV/Cotest 1994 Dental X-Ray: Full Mouth 12/15/2022 12/14/2019, 12/19 Diabetes: Urine Protein Screening 02/01/2024 01/31/2023, 04/18/2021, 07/11/2020 Dental Oral Exam 03/03/2024 09/02/2023, 05/2021, 12/14/2019, Additional history exists RSV Patients and Patients Aged 60 years or older (1 - Risk 60-74 years 1-dose series) 2024 COVID-19 Vaccine ( season) 2024 11/23/2021, 12/16/2020, 11/25/2020 Influenza Vaccine (#1) 2024 , 07/11/2020, 08/18/2019, Additional history exists Diabetes: Foot Exam 08/22/2024 08/22/2023, 08/22/2023, 08/22/2023, Additional history exists Dental X-Ray: Bitewings 09/25/2024 09/24/20, 09/02/2023, 04/02/2022, Additional history exists Lipid Panel 10/09/2024 10/09/2023, 04/12/2022, 04/18/2021, Additional history exists Dental Prophylaxis 11/13/2024 05/12/2024, 1 11/02/2022, 11/09/2021, Additional history exists SDOH Screening 12/13/2024 12/13/2023 Diabetes: Hemoglobin A1C 12/27/2024 024, 05/25/2024, 12/23/2023, Additional history exists Tobacco Screening 05/26/2025 05/26/2024 Alcohol/Substance Use Screening 09/28/2025 09/28/2024 Depression Screening 09/28/2025 09/28/2024, 09/28/20 24 Mammogram 01/20/2026 01/21/2024, 12/21, 01/11/2022, Additional history exists Cervical Cancer Screening 02/05/2027 Pap Smear 02/05/2027 02/06/2024 Colonoscopy 03/14/2027 03/14/2017 Colorectal Cancer Screening 03/14/2027 DTaP/Tdap/Td Vaccines (3 - Td or Tdap) 12/22/2033 12/23/2023, 01/04/2011 HIV Screening Completed 12/23/2023 Hepatitis C Screening Completed 12/23/2023 Pneumococcal Vaccine: Pediatrics (0 to 5 Years) and At-Risk Patients (6 to 64 Years) Completed 12/23/2023, 01/04/2011 Meningococcal Vaccine Aged Out 02/04/2024 No alex vishnu eligible based on patient's age to complete this topic Zoster Vaccines Completed 05/05/2024, 12/27/2023 HIB Vaccines Aged Out No longer eligi ble based on patient's age to complete this topic HPV Vaccines Aged Out No longer eligi ble based on patient's age to complete this topic Hepatitis A Vaccines Aged Out No long er eligible based on patient's age to complete this topic Hepatitis B Vaccines Aged Out No long er eligible based on patient's age to complete this topic IPV Vaccines Aged Out No longer eligi ble based on patient's age to complete this topic RSV under 20 months Aged Out No longe r eligible based on patient's age to complete this topic Rotavirus Vaccines Aged Out No longer eligible based on patient's age to complete this topic Procedures Procedure Name Priority Date/Time Associated Diagnosis Comments POCT GLYCATED HEMOGLOBIN, TOTAL Routine 09/28/2024 11:09 AM EST Type 2 diabetes mellitus without complication, with long-term current use of insulin (CMS/HCC) POCT GLUCOSE Routine 09/28/2024 11:08 AM EST Type 2 diabetes mellitus without complication, with long-term current use of insulin (CMS/HCC) XR CHEST 2 VIEWS Routine 09/09/2024 8:38 AM EST Latent tuberculosis by blood test T-SPOT(R).TB Routine 09/03/2024 11:35 AM EST Encounter for screening for respiratory tuberculosis PROPHYLAXIS - ADULT Routine 05/12/2024 9 :00 AM EDT PAP SMEAR Routine 02/06/2024 4:00 PM EDT Cervical cancer screening BI MAMMOGRAM SCREENING TOMOSYNTHESIS BILATERAL Routine 01/21/2024 4:45 PM EDT HEPATITIS C AB W/REFL TO HCV RNA, QN, PCR Routine 12/23/2023 10:11 AM EST Encounter for health-related screening HIV 1/2 ANTIGEN/ANTIBODY, FOURTH GENERATION W/RFL Routine 12/23/2023 10:11 AM EST Encounter for health-related screening LIPID PANEL, STANDARD Routine 10/09/2023 8:08 AM EST Class 2 obesity BITEWING - SINGLE RADIOGRAPHIC IMAGE Routine 09/24/2023 10:00 AM EST PERIODIC ORAL EVALUATION - ESTABLISHED PATIENT Routine 09/02/2023 11:00 AM EST HP LINK DIABETIC FOOT EXAM Routine 08/22/2023 ALBUMIN, RANDOM URINE W/O CREATININE Routine 01/31/2023 10:10 AM EDT Vague bodily discomfort DIAGNOSTIC - DIAGNOSTIC IMAGING - INTRAORAL - COMPREHENSIVE SERIES OF RADIOGRAPHIC IMAGES Routine 12/14/2019 12:00 AM EST HM COLONOSCOPY Routine 03/14/2017 from Last 3 Months or Most Recently Relevant to Health Maintenance Results * (ABNORMAL) POCT HGB A1C (09/28/2024 11:09 AM EST) Hemoglobin A1C 7.4(A) 4.0 - 6.0 % QC Media Lot # [id number] Lot# Expiration Date [id number] Blood 09/28/2024 11:0 9 AM EST Christa Topete MD POINT OF CARE TEST ENTER/EDIT ORDERABLES Final Result * (ABNORMAL) POCT Glucose (09/28/2024 11:08 AM EST) Glucose Blood, POC 218(A) 60 - 200 mg/dL QC Media Lot # [id number] Lot# Expiration Date [id number] Blood Capillary blood specimen / Unknown 09/28/2024 11:08 AM EST us Christa Topete MD POINT OF CARE TEST ENTER/EDIT ORDERABLES Final Result * XR Chest 2 Views (09/09/2024 8:38 AM EST) Anatomical Region Laterality Modality Chest Radiographic Azalia ging 09/09/2024 8:38 AM EST Narrative 09/09/2024 10:47 AM EST ?[facility] ?[address] ?[place] [address] ?XRay Report ? Signed ? Patient: Yahyani,Kristine ?MR#: [id number] ?? 8 ? : 1965 ?Acct:[id number] ? Age/Sex: 59 / F ?ADM Date: 09/09/24 ? Loc: HO.HHCX ? Attending Dr: Christa Topete MD ? Ordering Physician: Christa Topete MD ?? Date of Service: 09/09/24 ?? Procedure(s): XR chest 2V ?? Accession Number(s): [id number] ? cc: Christa Topete MD ? EXAMINATION: ?? XR CHEST ? CLINICAL INFORMATION: ?? 59 yo F with hx of positive T spot, needs assessment and treatment ? COMPARISON: ?? Chest radiograph dated 04/04/2022. ? TECHNIQUE: ?? 2 views of the chest were obtained. ? FINDINGS: ?? The lungs are clear. The cardiomediastinal silhouette is normal in ?? size. There is no pleural effusion or pneumothorax. No acute osseous ?? abnormality. ? XR/XR chest 2V ?? IMPRESSION: ?? No acute cardiopulmonary findings. ? Electronically signed by: ??Michael Garcia MD ??09/09/2024 10:45 AM EST ? Dictated By: ?Michael Garcia MD ? Signed By: ?<Electronically signed by Michael Garcia MD in OV> ?09/09/24 1045 ? DD/ 0838 ? TD/TT: 09/09/24 0900 ? Patternmaker Metal: SR ? Procedure Note Satish Ramsey - 09/09/2024 [facility] [address] [facility] [place] [address] XRay Report Signed Patient: Rupesh MataRebecca#: [id number] 8 : 1965Acct:[id number] Age/Sex: 59 / FADM Date: 09/09/24 Loc: HO.HHCX Attending Dr: Christa Topete MD Ordering Physician: Christa Topete MD Date of Service: 09/09/24 Procedure(s): XR chest 2V Accession Number(s): [id number] cc: Christa Topete MD EXAMINATION: XR CHEST CLINICAL INFORMATION: 59 yo F with hx of positive T spot, needs assessment and treatment COMPARISON: Chest radiograph dated 04/04/2022. TECHNIQUE: 2 views of the chest were obtained. FINDINGS: The lungs are clear. The cardiomediastinal silhouette is normal in size. There is no pleural effusion or pneumothorax. No acute osseous abnormality. XR/XR chest 2V IMPRESSION: No acute cardiopulmonary findings. Electronically signed by: Michael Garcia MD 09/09/2024 10:45 AM EST Workstation: [id number] Dictated By: Michael Garcia MD Signed By: <Electronically signed by Michael Garcia MD in OV> 09/09/24 1045 DD/ 0838 TD/TT: 09/09/24 0900 Patternmaker Metal: SR Christa Topete MD IMG XR PROCEDURES Final Resul t * (ABNORMAL) T-SPOT??.TB (09/03/2024 11:35 AM EST) Pathologist [facility] T Spot TB Positive( A) Negative [facility] Comment: Diagnosing or excluding tuberculosis (TB) disease andassessing the probability of latent TB infection (LTBI)requires a combination of epidemiological, historical,medical and diagnostic findings that should be takeninto consideration when interpreting T-SPOT.TB testresults. A positive test result does not rule in activeTB disease caused by Mycobacterium tuberculosis(M. tuberculosis); active TB disease should beconfirmed by other tests such as sputum smear andculture, PCR, and chest radiography.Uncommonly, a positive T-SPOT.TB result may be due toinfection with other Mycobacterium species includingM. kansasii, M. szulgai, M. gordonae, or M. marinum.Alternative tests would be required if these infectionsare suspected.The T-SPOT.TB test is qualitative and results arereported as positive, borderline, or negative, giventhat the test controls perform as expected. In linewith the Centers for Disease Control and Prevention's2010 recommendation to report quantitative measurementsalongside the qualitative result, the laboratoryprovides spot counts for informational purposes only.The T-SPOT.TB test should not be interpreted as aquantitative test. TS PANEL A 9 [facility] TS PANEL B 0 [facility] Negative Control Passed [facility] Positive Control Passed [facility] Comment:For additional infor matzachary, please refer tohttp://education.righTune/faq/DBT140(This link is being provided for informational/educational purposes only.)THIS TEST WAS PERFORMED AT:[employer] [id number] [place] [address]VCUNFXLDEAN CARDENAS MD,PHD 09/03/2024 11:3 5 AM EST 09/03/2024 2:10 PM EST us Christa Topete MD LAB BLOOD ORDERABLES Final Re sult [facility] [address] [place] [phone] * Pap Smear (02/06/2024 4:00 PM EDT) Swab 02/06/2024 4:00 PM EDT 02/10/2024 11:30 AM EDT Narrative [facility] - 02/25/2024 12:30 PM EDT ----- ------- Name: Kristine Mata ?Age/Sex: 58/F ? : 1965 Unit#: [id number] ?? Attend Dr: Christa Topete MD ?Re02/06/24 ?Status: DEP REF ? Location: HO.CHCLNP ? Disch: ? ----- ------- SPEC : [id number] ? RECD: 02/10/24-1130 ? STATUS: ??SOUT ? REQ NUM: [id number] ? PEÑA: 02/06/24-1600 ? SUBM DR: Christa Topete MD ? ENTERED: ??02/10/24-8100 ?SP TYPE: Pap Smr ?OTHR DR: ? ORDERED: ??Pap Smear ? Interpretation ?? Satisfactory for evaluation. ?? Negative for intraepithelial lesion or malignancy. ?Clinical Information LMP: Postmenopausal Previous PAP test: Unknown date/findings ? Material Received ?? ThinPrep-Vaginal/Cervical ----- ------- Signed (signature on file) NIKI Preciado (ASCP) 02/25/24 1230 ? ----- ------- ? END OF REPORT ? us Christa Topete MD LAB CYTOLOGY ORDERABLES Final Result [facility] [address] [place] [phone] * BI Mammogram Screening Tomosynthesis Bilateral (01/21/2024 4:45 PM EDT) Anatomical Region Laterality Modality Breast Bilateral Mammography 01/21/2024 4:45 PM EDT Narrative 02/03/2024 4:26 AM EDT ? [facility] ? [address] ?[place] [address] ? Mammography Report ? Signed ? Patient: Yahyani,Kristine ?MR#: [id number] ?? 8 ? : 1965 ?Acct:[id number] ? Age/Sex: 58 / F ?ADM Date: 01/21/24 ? Loc: HO.MAMMO ? Attending Dr: Christa Topete MD ? Ordering Physician: Christa Topete MD ?Results: 1Nega ?? tive ? Date of Service: 01/21/24 ?Follow Up: 1 Year From Orig ?? inal Mammogram ? Procedure(s): MM tomosynthesis screening BI ?? Accession Number(s): [id number] ? cc: Christa Topete MD ? EXAMINATION: ?? MM SCREENING DIGITAL BREAST TOMOSYNTHESIS, BILATERAL ? CLINICAL INFORMATION: ? Screening. Asymptomatic. ? COMPARISON: ?? Mammography: This study is compared with prior exams dating back to ?? 2018. ? TECHNIQUE: ?? Digital breast tomosynthesis is performed in both the craniocaudal and ?? mediolateral oblique views along with computer-aided detection (CAD). ?? Synthesized 2D images are generated from the tomosynthesis. ? FINDINGS: ?? There are scattered areas of fibroglandular density (ACR BI-RADS breast ?? composition Category b). ? There are no significant masses, abnormal calcifications, or other ?? abnormalities. ? MM/MM tomosynthesis screening BI ?? IMPRESSION: ?? No mammographic evidence of malignancy. ? ASSESSMENT: ? BI-RADS BI-RADS 1 - Negative ? RECOMMENDATION: ?? Routine annual mammography screening. ? 1 year F/U ? This examination should not preclude the clinical evaluation of a ?? suspicious palpable abnormality. ? This patient's information was entered into a reminder system with a ?? target due date for their next mammogram. ? Dictated By: ?Tiffanie Jean MD ? Signed By: ?<Electronically signed by Tiffanie Jean MD in OV> ? 02/03/24 0422 ? DD/ 1645 ? TD/TT: ? Patternmaker Metal: ? Procedure Note Donotuseinterpreter, Image - [facility]03[facility] [address] [place] [address] Mammography Report Signed Patient: Shakira Mata#: [id number] 8 : 1965Acct:[id number] Age/Sex: 58 / FADM Date: 01/21/24 Loc: HO.MAMMO Attending Dr: Christa Topete MD Ordering Physician: Christa Topete MDResults: 1Nega tive Date of Service: 01/21/24Follow Up: 1 Year From Orig inal Mammogram Procedure(s): MM tomosynthesis screening BI Accession Number(s): [id number] cc: Christa Topete MD EXAMINATION: MM SCREENING DIGITAL BREAST TOMOSYNTHESIS, BILATERAL CLINICAL INFORMATION: Screening. Asymptomatic. COMPARISON: Mammography: This study is compared with prior exams dating back to 2018. TECHNIQUE: Digital breast tomosynthesis is performed in both the craniocaudal and mediolateral oblique views along with computer-aided detection (CAD). Synthesized 2D images are generated from the tomosynthesis. FINDINGS: There are scattered areas of fibroglandular density (ACR BI-RADS breast composition Category b). There are no significant masses, abnormal calcifications, or other abnormalities. MM/MM tomosynthesis screening BI IMPRESSION: No mammographic evidence of malignancy. ASSESSMENT: BI-RADS BI-RADS 1 - Negative RECOMMENDATION: Routine annual mammography screening. 1 year F/U This examination should not preclude the clinical evaluation of a suspicious palpable abnormality. This patient's information was entered into a reminder system with a target due date for their next mammogram. Dictated By: Tiffanie Jean MD Signed By: <Electronically signed by Tiffanie Jean MD in OV> 02/03/24 0422 DD/ 1645 TD/TT: Patternmaker Metal: us Christa Topete MD IMG BI PROCEDURES Final Resul t * Hepatitis C Antibody with Reflex to HCV, RNA, Quantitative, Real-Time PCR (12/23/2023 10:11 AM EST) Hepatitis C Antibody Nonreactive Nonreactive [facility] Comment:Antibodies to HCV no t detected; does not exclude early acuteHCV infection. Blood Venous blood specimen / Unknown 12/23/2023 10:11 AM EST 12/23/2023 2:26 PM EST us Christa Topete MD LAB BLOOD ORDERABLES Final Re sult [facility] [address] [place] [phone] * HIV-1/2 Antigen and Antibodies, Fourth Generation, with Reflexes (12/23/2023 10:11 AM EST) HIV AB/AG Nonreactive Nonreactive [facility] Comment:HIV-1 p24 Ag and/or HIV-1/HIV-2 Ab not detected.A test result that is nonreactive does not exclude thepossibility of exposure to or infection with HIV-1 and/orHIV-2. Nonreactive results in this assay for individualswith prior exposure to HIV-1 and/or HIV-2 may be due toantigen and antibody levels that are below the limit ofdetection of this assay.The [employer] HIV Ag/Ab Combo assay result andsupplemental assay results should be interpreted inconjunction with the patient's clinical presentation,history and other laboratory results. If the results areinconsistent with clinical evidence, additional testing issuggested to confirm the result. Blood Venous blood specimen / Unknown 12/23/2023 10:11 AM EST 12/23/2023 2:26 PM EST us Christa Topete MD LAB BLOOD ORDERABLES Final Re sult Performing Organization Address City/[facility]/ZIP Co de Phone Number [facility] [address] [place] [phone] * Lipid Panel, Standard (10/09/2023 8:08 AM EST) Triglycerides 89 <150 mg/dL [facility] Comment:Desirable Triglyceri de: less than 150 mg/dLBorderline High Triglyceride 150-199 mg/dLHigh Triglyceride: 200-499 mg/dLVery High Triglyceride: greater than or equal to 5OO mg/dL Cholesterol 160 <200 mg/dL [facility] Comment:Desirable Cholestero l: less than 200 mg/dLBorderline High Cholesterol: 200-239 mg/dLHigh Cholesterol: greater than 239 mg/dL LDL Cholesterol Calculated 87 <100 mg/dL [facility] Comment:Desirable LDL: less than 100 mg/dLNear Optimal/Above Optimal LDL: 110- 129 mg/dLBorderline High LDL: 130-159 mg/dLHigh LDL: 160-189 mg/dLVery High LDL: greater than or equal to 190 mg/dL HDL Cholesterol 56 >40 mg/dL [facility] Comment:Desirable HDL: great er than 40 mg/dL Note: This HDL assay may give artificially low results in patients with liver disease. Blood Venous blood specimen / Unknown 10/09/2023 8:08 AM EST 10/09/2023 11:12 AM EST us Christa Topete MD LAB BLOOD ORDERABLES Final Re sult Performing Organization Address City/[facility]/ZIP Co de Phone Number [facility] [address] [place] [phone] * HP Diabetic Foot Exam (08/22/2023) Narrative Christa Topete MD - 08/22/2023 Normal. Christa Topete MD HEALTH MAINTENANCE Final Resu lt * Albumin, Random Urine W/O Creatinine (01/31/2023 10:10 AM EDT) Albumin, Urine 0.4 See Note: mg/dL [facility] Comment: Reference Range: Reference Range Not established [facility] Comment: The ADA defines abnormalities in albumin excretion as follows: Albuminuria Category ? Result (mcg/mg creatinine) Normal to Mildly increased ?<30 Moderately increased ?30-299 Severely increased ?> OR = 300 The ADA recommends that at least two of three specimens collected within a 3-6 month period be abnormal before considering a patient to be within a diagnostic category. Urine Urine specimen obtained by clean catch procedure / Unknown 01/31/2023 10:10 AM EDT 01/31/2023 10:11 AM EDT [facility] - 02/01/2023 7:35 PM EDT FASTING:NO FASTING: NO Result [facility] Christa Topete MD LAB URINE ORDERABLES Final Re sult [facility] [address], [place] [address] [facility] [address] [place] [phone] * Hm Colonoscopy (03/14/2017) Colonoscopy Normal Normal Narrative Cydney Gottlieb - 03/14/2017 Recommended 10 year follow up Historical Provider HEALTH MAINTENANCE Final Result from Last 3 Months or Most Recently Relevant to Health Maintenance [place] [address] [address] C3 [facility] MEDICAID STAND ADULT Care Teams Bar Machine Operator Production Relationship Specialty Start Date End Date Christa Topete MD [address] [place] [phone] PCP - General Family Medicine 09/13/21
--- OUTSIDE RECORDS SUMMARY | 2024-11-10 14:12 | XMS_ITS | Encounter Summary ---
Author Organization [employer] Address [address] [place] [address] Care Team Providers Care Production Control Clerk Name Role Phone Christa Topete MD Primary Care Provider Encounter Details Date Type Department Care Team ([facility] st Contact Info) Description 11/06/2024 Telephone [facility] CH[facility] MED & PEDS [address] [place], [place] [phone] Christa Topete MD [address] [place] [address] Social History Tobacco Use Types Packs/Day Years [...] encounter Miscellaneous Notes * Telephone Encounter - Radha Gasca RN - 11/06/2024 11:01 AM EST Incoming call from pharmacy requesting new BP monitor as pt current BP monitor broke. Pharmacy stated BP moniot was last prescribed by an outside provider and pt is stating that it no longer works. New BP monitor sent as requested. documented in this encounter Plan of Treatment Not on file documented as of this encounter Visit Diagnoses Not on filedocumented in this encounter Additional Health Concerns Assessment Noted Time PHQ-9 Depression Total Score: 3 09/28/20 24 10:48 AM EST documented as of this encounter Care Teams Production Control Clerk Relationship Specialty Start Date End Date Christa Topete MD [address] [place] [phone] PCP - General Family Medicine 09/13/21 documented as of this encounter
--- OUTSIDE RECORDS SUMMARY | 2024-11-10 14:12 | XMS_ITS | Encounter Summary ---
Author Organization [employer] Address [address] [address] [address] [place] [address] Care Team Providers Care Gas Substation Operator Name Role Phone Christa Topete MD Primary Care Provider [phone] Encounter Details Date Type Department Care Team ([facility] st Contact Info) Description 11/04/[address] [facility] [address] [place] [address] Christa Topete MD [address] [place] [address] Social History Tobacco Use Types Packs/Day Years [...] encounter Miscellaneous Notes * Telephone Encounter - Kelly Chandler RN - 11/06/2024 10:36 AM EST Left message for patient to notify of results, needing to take Occupational Therapy, and call office with any questions or concerns. * Telephone Encounter - Christa Topete MD - 11/04/2024 1:40 PM EST [facility] Team! Can you please call Kristine Hamiltonyasmany and inform about results? EMG Mild left ulnar neuropathy across cubital tunnel. Will benefit of Occupational therapy/ brace for cubital tunnel syndrome. If not improvement, could be refer to hand surgeon, but needs OT. Thanks! Christa documented in this encounter Plan of Treatment Not on file documented as of this encounter Visit Diagnoses Not on filedocumented in this encounter Additional Health Concerns Assessment Noted Time PHQ-9 Depression Total Score: 3 09/28/20 24 10:48 AM EST documented as of this encounter Care Teams Gas Substation Operator Relationship Specialty Start Date End Date Christa Topete MD [address] [place] [phone] PCP - General Family Medicine 09/13/21 documented as of this encounter
--- OUTSIDE RECORDS SUMMARY | 2024-11-10 14:12 | XMS_ITS | Encounter Summary ---
Author Organization [employer] Address [address] [facility] 7t [place] [address] Care Team Providers Care Chest Painting And Sealing Supervisor Name Role Phone Christa Topete MD Primary Care Provider [phone] Reason for Visit * Reason Comments Med Refill Encounter Details Date Type Department Care Team ([facility] st Contact Info) Description 05/12/2023 Refill [facility] CHC MED & PEDS [address] [place], [place] [phone] Christa Topete MD 505 [place] [address] Social History Tobacco Use Types Packs/Day Years [...] Orientation Straight 08/20/2022 10 :21 AM EDT COVID-19 Exposure Response Date Recorded In the last 10 days, have yo u been in contact with someone who was confirmed or suspected to have Coronavirus/COVID-19? No / Unsure 04/16/2023 11:54 AM EDT documented as of this encounter Plan of Treatment Not on file documented as of this encounter Visit Diagnoses Not on filedocumented in this encounter Additional Health Concerns Assessment Noted Time PHQ-9 Depression Total Score: 8 02/01/20 23 9:11 AM EDT documented as of this encounter Care Teams Chest Painting And Sealing Supervisor Relationship Specialty Start Date End Date Christa Topete MD [address] [place] [address] PCP - General Family Medicine 09/13/21 documented as of this encounter
--- OUTSIDE RECORDS SUMMARY | 2024-11-10 14:12 | XMS_ITS | Encounter Summary ---
Author Organization [facility] [employer] Address [address] [facility] 7t [place] [address] Care Team Providers Care Teaching Associate Name Role Phone Christa Topete MD Primary Care Provider [phone] Encounter Details Date Type Department Care Team (Latest Contact Info) Description 12/14/2019 Abstract [facility] CONVERSIONS Dental, Provider, DDS Social History Tobacco Use Types Packs/Day Years Used Date Smoking Tobacco: Never Assessed Comments Unknown Sex and Gender Information Value Date Recorded Sex Assigned at Female 08/20/2022 10:21 AM EDT Legal Sex Female 10:21 AM EDT Gender Identity Female 08/20/2022 10:21 AM EDT Sexual Orientation Straight 08/20/2022 10 :21 AM EDT documented as of this encounter Plan of Treatment Not on file documented as of this encounter Visit Diagnoses Not on filedocumented in this encounter Care Teams Teaching Associate Relationship Specialty Start Date End Date Christa Topete MD [address] [place] [phone] PCP - General Family Medicine 09/13/21 documented as of this encounter
--- OUTSIDE RECORDS SUMMARY | 2024-11-10 14:12 | XMS_ITS | Encounter Summary ---
Author Organization [employer] Address [address] [facility] 7t [place] [address] Care Team Providers Care Screen Maker Name Role Phone Christa Topete MD Primary Care Provider [phone] Reason for Visit * Reason Comments Med Refill Encounter Details Date Type Department Care Team ([facility] st Contact Info) Description 10/15/2024 Refill [facility] CHC MED & PEDS [address] [place], [place] [phone] Christa Topete MD 505 [place] [address] Social History Tobacco Use Types Packs/Day Years [...] is your housing situation today? I have oumoutemitope corbin 08/13/[address] you [...] encounter Miscellaneous Notes * Telephone Encounter - Christa Topete MD - 10/16/2024 10:02 AM EST She is getting her cGM from [facility] documented in this encounter Plan of Treatment Not on file documented as of this encounter Visit Diagnoses Not on filedocumented in this encounter Additional Health Concerns Assessment Noted Time PHQ-9 Depression Total Score: 3 09/28/20 10:48 AM EST documented as of this encounter Care Teams Screen Maker Relationship Specialty Start Date End Date Christa Topete MD [address] [place] [address] PCP - General Family Medicine 09/13/21 documented as of this encounter
--- OUTSIDE RECORDS SUMMARY | 2024-11-10 14:12 | XMS_ITS | Encounter Summary ---
Author Organization [employer] Address [address] [facility] [address] [place] [address] Care Team Providers Care Derrick Barge Operator Name Role Phone Christa Topete MD Primary Care Provider [phone] Encounter Details Date Type Department Care Team (Late st Contact Info) Description 09/04/2023 Abstract [facility] MEDICINE [address] [place] [address] Cydney Gottlieb Social History Tobacco Use Types Packs/Day Years [...] on file documented as of this encounter Procedures Procedure Name Priority Date/Time Associated Diagnosis Comments COLONOSCOPY Routine 03/14/2017 documented in this encounter Results * Hm Colonoscopy (03/14/2017) Colonoscopy Normal Normal Narrative Chery Cydney - 03/14/2017 Recommended 10 year follow up Historical Provider HEALTH MAINTENANCE Final Result documented in this encounter Visit Diagnoses Not on filedocumented in this encounter Additional Health Concerns Assessment Noted Time PHQ-9 Depression Total Score: 8 02/01/20 23 9:11 AM EDT documented as of this encounter Care Teams Derrick Barge Operator Relationship Specialty Start Date End Date Christa Topete MD [address] [place] [address] PCP - General Family Medicine 09/13/21 documented as of this encounter
--- OUTSIDE RECORDS SUMMARY | 2024-11-10 14:12 | XMS_ITS | Encounter Summary ---
Author Organization [employer] Address [address] [facility] 7t [place] [address] Care Team Providers Care Online Media Buyer Name Role Phone Christa Topete MD Primary Care Provider [phone] Encounter Details Date Type Department Care Team ([facility] st Contact Info) Description 11/02/2024 Telephone [employer] [address] [place] [address] Christa Topete MD [address] [place] [address] Social History Tobacco Use Types Packs/Day Years [...] documented as of this encounter Care Teams Online Media Buyer Relationship Specialty Start Date End Date Christa Topete MD [address] [place] [address] PCP - General Family Medicine 09/13/21 documented as of this encounter
--- OUTSIDE RECORDS SUMMARY | 2024-11-10 14:12 | XMS_ITS | Encounter Summary ---
Author Organization [employer] Address [address] [facility] 7t [place] [address] Care Team Providers Care Traffic Enumerator Name Role Phone Christa Topete MD Primary Care Provider [phone] Encounter Details Date Type Department Care Team (Late st Contact Info) Description 12/04/2022 Orders Only [facility] MEDICINE [address] [place] [address] Yenni Cardenas LPN Social History Tobacco Use Types Packs/Day Years [...] on filedocumented in this encounter Care Teams Traffic Enumerator Relationship Specialty Start Date End Date Christa Topete MD [address] [place] [address] PCP - General Family Medicine 09/13/21 documented as of this encounter
--- OUTSIDE RECORDS SUMMARY | 2024-11-10 14:12 | XMS_ITS | Encounter Summary ---
Author Organization [employer] Address [address] [facility] 7t [place] [address] Care Team Providers Care Raw Stock Dyeing Machine Tender Name Role Phone Christa Topete MD Primary Care Provider [phone] Encounter Details Date Type Department Care Team (Latest Contact Info) Description 11/09/2021 Abstract [facility] CONVERSIONS Dental, Provider, DDS Social History [...] on filedocumented in this encounter Care Teams Raw Stock Dyeing Machine Tender Relationship Specialty Start Date End Date Christa Topete MD [address] [place] [phone] PCP - General Family Medicine 09/13/21 documented as of this encounter
== END 2024-11-10 13:10 | disposition home or self-care (01) ==
PROVIDERS: PCP Family Medicine; Visit Provider Orthopaedic Surgery
DX: M25.311 Other instability, right shoulder (principal); M75.41 Impingement syndrome of right shoulder
CPT/HCPCS: 99203

== ENCOUNTER 2024-11-10 14:31 | Outpatient (REF) | payer MEDICAID, SELFPAY ==
--- NOTE | ~2024-11-10 | XR_ITS ---
EXAMINATION: XR SHOULDER 2 OR MORE VIEWS RIGHT HISTORY: M25.511 - Pain in right shoulder COMPARISON: There are no prior studies available for comparison. FINDINGS: Two views of the right shoulder are submitted. Osseous mineralization is normal. There is no fracture or dislocation. The glenohumeral joint is maintained. There is moderate osteoarthritis of the AC joint with joint space narrowing and osteophyte formation. Amorphous calcifications adjacent to the humeral head are likely related to the rotator cuff. XR/XR shoulder RT min 2V IMPRESSION: Moderate osteoporosis of the AC joint. Probable rotator cuff calcifications. Electronically signed by: Fred Jon MD 11/10/2024 02:12 PM [facility]
== END 2024-11-10 14:32 | disposition home or self-care (01) ==
LOC: HO.HOSX 14:31
PROVIDERS: Visit Provider Orthopaedic Surgery
DX: M25.511 Pain in right shoulder (principal)
CPT/HCPCS: 73030; 99202

== ENCOUNTER 2024-11-21 08:36 | Outpatient (REF) | payer MEDICAID, SELFPAY ==
--- NOTE | ~2024-11-21 | MR_ITS ---
EXAMINATION: MR SHOULDER WITHOUT CONTRAST RIGHT CLINICAL INFORMATION: Other instability right shoulder. Patient states pain for many years, intermittent, worsening. Decreased range of motion. Right shoulder numbness. COMPARISON: No prior MRI. Right shoulder radiographs 11/10/2024. TECHNIQUE: Multiplanar multisequence MR imaging of the right shoulder was done without IV contrast. Examination performed on a 1.5 Iliana Siemens unit utilizing standard sequences. FINDINGS: -Study significantly motion degraded on multiple pulse sequences, which limits the sensitivity of the study. Study is also limited by patient habitus, with poor [id number]. Rotator Cuff and Biceps Tendon: Supraspinatus: There is abundant calcification, T2 hypointense, seen throughout the tendon spanning the myotendinous junction to the footplate attachment (approximately 3.0 cm sagittal diameter, encompassing the width of the tendon). There is surrounding T2 hyperintense edema. Tendon is otherwise intact without discrete tear identified. The muscle belly is normal. Infraspinatus: No definite discrete tear within the confines of motion. There is osseous spurring of the greater/lesser tuberosity in the region of attachment. Normal-appearing muscle belly and myotendinous junction. Subscapularis: There is thickening of the distal tendon with mildly increased T2 signal consistent with tendinopathy. Mild T2 hypointense calcification of the distal tendon is evident. Normal myotendinous junction and muscle belly. Teres Minor: Intact and normal in signal from motion artifact. Biceps Long Head: Normally located within the bicipital groove. There is a suggestion of a split tear on the axial sequences (series 5, images 12-15), although motion artifact and patient positioning are precluding definitive evaluation. Cannot well evaluate the tendon within the rotator cuff interval. AC Joint and Acromiohumeral Arch: There is mild to moderate both superior surface and undersurface spurring of the AC joint with joint capsular distention. There is mild periarticular edema. There is no significant impingement upon the supraspinatus outlet. Minimally downsloping lateral acromion, without significant subacromial spurring. Glenohumeral Joint and Labrum: No joint effusion. Cannot well evaluate the labrum due to inherent study limitations. Grossly no large tear seen. Grossly no full-thickness cartilage abnormalities or subchondral bone plate edema. Osseous Structures: No gross fracture or suspicious bone marrow abnormality. Aside from mild periarticular edema in the AC joint, there is no definite additional bone marrow edema. Spino-glenoid Notch: -Normal. Quadrilateral Space: -Normal. Other: -The glenohumeral ligaments appear grossly normal MR/MR shoulder RT wo con IMPRESSION: 1. Significantly limited exam due to patient motion and habitus. 2. Extensive calcification of the supraspinatus tendon, consistent with severe calcific tendinopathy. There is no discrete tear identified. 3. The subscapularis tendon demonstrates mild changes of calcific tendinopathy. There is no discrete tear. 4. There may be a split tear of the long head of the biceps tendon within the groove. Cannot evaluate the tendon in the rotator interval. 5. Limited evaluation of the labrum. No gross tear is seen within confines of limitation. Electronically signed by: Anurag Hernandez MD 11/23/2024 11:27 AM DREW
--- OUTSIDE RECORDS SUMMARY | 2024-11-21 08:40 | XMS_ITS | Encounter Summary ---
Author Organization [employer] Address [address] [facility] [address] [place] [address] Care Team Providers Care Teacher Vocational Training Name Role Phone Christa Topete MD Primary Care Provider [phone] Reason for Visit * Reason Onset Date Comments Nurse Triage 05/30/2023 Encounter Details Date Type Department Care Team ([facility] st Contact Info) Description 05/30/2023 Telephone [facility] MEDICINE [address] [place] [address] Christa Topete MD 505 [place] [address] Nurse Triage Social History Tobacco Use Types [...] ill and she has to go to ID shortly.pt requesting appt with PCP to talk [...] this time and offered appt today in [facility], declined. advised can see another provider regarding concerns and follow up as needed with PCP. pt states will not be back for at least 2 months. again offered appt today with [facility], declined. advised ER evaluation if severe [...] become worse * Telephone Encounter - Nohemi Driver - 05/30/2023 12:06 PM EDT Symptom: Chest Pain - Adult Outcome: Transfer to a nurse or provider NOW! Reason: Severe pain now, high blood sugar. The caller accepted this outcome Please contact at [phone] documented in this encounter Plan of Treatment Not on file documented as of this encounter Visit Diagnoses Not on filedocumented in this encounter Additional Health Concerns Assessment Noted Time PHQ-9 Depression Total Score: 8 02/01/20 23 9:11 AM EDT documented as of this encounter Care Teams Teacher Vocational Training Relationship Specialty Start Date End Date Christa Topete MD [address] [place] [phone] PCP - General Family Medicine 09/13/21 documented as of this encounter
--- OUTSIDE RECORDS SUMMARY | 2024-11-21 08:40 | XMS_ITS | Encounter Summary ---
Author Organization [employer] Address [address] [facility] 7t [place] [address] Care Team Providers Care Lot Attendant Name Role Phone Christa Topete MD Primary Care Provider [phone] Reason for Visit * Reason Comments Med Refill Encounter Details Date Type Department Care Team ([facility] st Contact Info) Description 05/12/2023 Refill [facility] CHC MED & PEDS [address] [place], [place] [phone] Christa Topete MD 505 [place] [address] Social History Tobacco Use Types Packs/Day Years [...] documented as of this encounter Care Teams Lot Attendant Relationship Specialty Start Date End Date Christa Topete MD [address] [place] [address] PCP - General Family Medicine 09/13/21 documented as of this encounter
--- OUTSIDE RECORDS SUMMARY | 2024-11-21 08:40 | XMS_ITS | Encounter Summary ---
Author Organization [employer] Address 75 [facility] 7t [place] [address] Care Team Providers Care Paving Contractor Name Role Phone Christa Topete MD Primary Care Provider [phone] Reason for Visit * Reason Comments Med Refill Encounter Details Date Type Department Care Team ([facility] st Contact Info) Description 10/15/2024 Refill [facility] CHC MED & PEDS [address] [place], [place] [phone] Christa Topete MD [address] [place] [address] Social History Tobacco Use Types Packs/Day Years [...] documented as of this encounter Care Teams Paving Contractor Relationship Specialty Start Date End Date Christa Topete MD [address] [place] [address] PCP - General Family Medicine 09/13/21 documented as of this encounter
--- OUTSIDE RECORDS SUMMARY | 2024-11-21 08:41 | XMS_ITS | Encounter Summary ---
Author Organization [employer] Address [address] [facility] [address] 7t [place] [address] Care Team Providers Care Chief Technician Name Role Phone Christa Topete MD Primary Care Provider [phone] Encounter Details Date Type Department Care Team ([facility] st Contact Info) Description 11/06/2024 Telephone [facility] CHC MED & PEDS [address] [place], [place] [phone] Christa Topete MD [address] [place] [address] Social History Tobacco Use Types Packs/Day Years [...] documented as of this encounter Care Teams Chief Technician Relationship Specialty Start Date End Date Christa Topete MD [address] [place] [phone] PCP - General Family Medicine 09/13/21 documented as of this encounter
--- OUTSIDE RECORDS SUMMARY | 2024-11-21 08:41 | XMS_ITS | Encounter Summary ---
Author Organization [employer] Address 75 [facility] 7t [place] [address] Care Team Providers Care Service Delivery Consultant Name Role Phone Christa Topete MD Primary Care Provider [phone] Encounter Details Date Type Department Care Team (Latest Contact Info) Description 12/14/2019 Abstract [facility] CONVERSIONS Dental, Provider, DDS Social History Tobacco [...] on filedocumented in this encounter Care Teams Service Delivery Consultant Relationship Specialty Start Date End Date Christa Topete MD [address] [place] [address] PCP - General Family Medicine 09/13/21 documented as of this encounter
--- OUTSIDE RECORDS SUMMARY | 2024-11-21 08:41 | XMS_ITS | Encounter Summary ---
Author Organization [employer] Address 75 [facility] 7t [place] [address] Care Team Providers Care Airway Controller Name Role Phone Christa Topete MD Primary Care Provider [phone] Encounter Details Date Type Department Care Team (Latest Contact Info) Description 11/09/2021 Abstract [facility] CONVERSIONS Dental, Provider, DDS Social History [...] on filedocumented in this encounter Care Teams Airway Controller Relationship Specialty Start Date End Date Christa Topete MD [address] [place] [phone] PCP - General Family Medicine 09/13/21 documented as of this encounter
--- OUTSIDE RECORDS SUMMARY | 2024-11-21 08:41 | XMS_ITS | Encounter Summary ---
Author Organization [employer] Address [address] [facility] [address] 7t [place] [address] Care Team Providers Care Barber Tool Sharpener Name Role Phone Christa Topete MD Primary Care Provider [phone] Encounter Details Date Type Department Care Team ([facility] st Contact Info) Description 11/04/2024 Telephone [facility] MEDICINE [address] [place] [address] Christa Topete MD [address] [place] [address] Social History Tobacco Use Types Packs/Day Years [...] Topete MD - 11/04/2024 1:40 PM EST [facility] Team! Can you please call Kristine Hamiltonyasmany [...] documented as of this encounter Care Teams Barber Tool Sharpener Relationship Specialty Start Date End Date Christa Topete MD [address] [place] [address] PCP - General Family Medicine 09/13/21 documented as of this encounter
--- OUTSIDE RECORDS SUMMARY | 2024-11-21 08:41 | XMS_ITS | Encounter Summary ---
Author Organization [employer] Address 75 [facility] [employer] [facility] [employer] 7t [place] [address] Care Team Providers Care Solid Waste Facility Operator Name Role Phone Christa Topete MD Primary Care Provider [phone] Encounter Details Date Type Department Care Team (Late st Contact Info) Description 12/04/2022 Orders Only [facility] MEDICINE [address] [place] [address] Yenni Cardenas LPN Social History Tobacco Use [...] on filedocumented in this encounter Care Teams Solid Waste Facility Operator Relationship Specialty Start Date End Date Christa Topete MD [address] [place] [address] PCP - General Family Medicine 09/13/21 documented as of this encounter
--- OUTSIDE RECORDS SUMMARY | 2024-11-21 08:41 | XMS_ITS | Clinical Summary ---
Author Organization [employer] Address 75 [facility] 7t [place] [address] Care Team Providers Care Picking Supervisor Name Role Phone Christa Topete MD Primary Care Provider [phone] Allergies Active Allergy Reactions Criticality Noted Date Comments Metformin Diarrhea 04/01/2023 Medications FREESTYLE LITE test stripIndication s:Type 2 diabetes mellitus with hyperglycemia, with long-term current use of insulin ([facility]) TEST BLOOD SUGAR FOUR TIMES DAILY 100 strip 11 12/04/19 23 Active glucose blood (FREESTYLE LITE) test strip Use 1 by To Skin route 4 times every day 09/13/20 21 Active Blood Glucose Monitoring Suppl (FreeStyle [place] Lite) w/Device kit TEST BLOOD SUGAR FOUR [...] morning. 09/10/20 23 Active Continuous Blood Gluc Water Use Inspector ([employer] [place]) device TEST BLOOD SUGAR FOUR TIMES DAILY [...] symptoms. F/u in 8 weeks. Relevant Medications Yyfyevr-Fdaxvftyundks-Xdvuknjj ( Excedrin Migraine) 250-250-65 MG tablet Cyclobenzaprine [...] recommended reduction of 20-30% of maintenance calories; cable mock up assembler referral offered. Recommended to decrease soda and [...] TAR 35%. Continue to follow up with Implementation Director. Assessment & Plan (05/25/2024 11:28 AM EDT): [...] implementation of diet modifications. Offer referral to cable mock up assembler, patient denied. Will restart glipizide at 10 mg. Will follow up in 3 months. ppt with nursing professor scheduled for 04/15/23. 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 Will lower lantus from 55 units to 51 units and start on Januvia 100mg. Will also hold metformin for x2 weeks due to chronic diarrhea and follow up in 2-3 weeks. Assessment & Plan (02/11/2023 11:39 AM EDT): Patient with elevated fasting glucose at time of visit with a reading of 325 mg/dL. Advised to product picker sensor and consistently monitor levls at home. Instructed to hold metformin and will follow up in 2 weeks to assess. Encounters Date Type Department Care Team Description 11/06/2024 Telephone [facility] MED & PEDS [address] [place] [address] Christa Topete MD 11/04/2024 Telephone [facility] MEDICINE [address] [place] [address] Christa Topete MD 11/02/2024 Telephone [place] [facility] [address] [place], [place] [phone] Christa Topete MD 10/15/2024 Refill [facility] CHC MED & PEDS [address] [place] [address] Christa Topete MD 09/28/2024 11:00 AM EST Office Visit [facility] MED & PEDS [address] [place] [address] Christa Topete MD Type 2 diabetes mellitus without complication, with long-term current use of insulin ([facility]) (Primary Dx); Neuropathic pain of finger of left hand; Chronic right shoulder pain; Latent tuberculosis by blood test 09/28/2024 Travel 09/07/2024 Telephone [facility] MEDICINE [address] [place] [address] Chris Gasca [place] Results 09/02/2024 Telephone [facility] MEDICINE [address] [place] [address] Christa Topete MD Lab Orders 08/31/2024 Telephone [facility] ADULT DENTAL [address] [place] [address] Sunil Coronado DDS 08/30/2024 Refill [facility] CHC MED & PEDS [address] [place], [place] [phone] Christa Topete MD from Last 3 Months [...] Hepatitis C Screening Completed 12/23/2023 Pneumococcal Vaccine: 50+ Years Completed 12/23/2023, 01/04/2011 Pneumococcal Vaccine: Pediatrics (0 to 5 Years) and At-Risk Patients (6 to 49) Years) Completed 12/23/2023, 01/04/2011 Meningococcal Vaccine Aged [...] Procedure Name Priority Date/Time Associated Diagnosis Comments AMB REFERRAL TO ORTHOPAEDIC SURGERY Routine 11/10/2024 Chronic right shoulder pain POCT GLYCATED HEMOGLOBIN, TOTAL Routine 09/28/2024 11:09 AM EST Type 2 diabetes mellitus without complication, with long-term current use of insulin ([facility]) POCT GLUCOSE Routine 09/28/2024 11:08 AM EST Type 2 diabetes mellitus without complication, with long-term current use of insulin ([facility]) XR CHEST 2 VIEWS Routine 09/09/2024 8:38 AM EST Latent tuberculosis by blood test T-SPOT(R).TB Routine 09/03/2024 11:35 AM EST Encounter for screening for respiratory tuberculosis PROPHYLAXIS - ADULT Routine 05/12/2024 9:00 AM EDT PAP SMEAR Routine 02/06/2024 4:00 [...] 812,026 Blood 09/28/2024 11:0 9 AM EST us Christa Topete MD POINT OF CARE TEST ENTER/EDIT ORDERABLES Final Result * (ABNORMAL) POCT Glucose (09/28/2024 11:08 AM EST) Glucose Blood, POC 218(A) 60 - 200 mg/dL QC Media Lot # [id number] Lot# Expiration Date [id number] Blood Capillary blood specimen / Unknown 09/28/2024 11:08 AM EST us Christa Topete MD POINT OF CARE TEST ENTER/EDIT ORDERABLES Final Result * XR Chest 2 Views (09/09/2024 8:38 AM EST) Anatomical Region Laterality Modality Chest Radiographic Azalia ging 09/09/2024 8:38 AM EST Narrative 09/09/2024 10:47 AM EST ?[facility] ?[address] ?[place] [address] ?XRay Report ? Signed ? Patient: Yahyani,Kristine ?MR#: [id number] ?? 8 ? : 1965 ?Acct:[id number] ? Age/Sex: 59 / F ?ADM Date: 09/09/24 ? Loc: HO.HHCX ? Attending Dr: Christa Topete MD ? Ordering Physician: Christa Topete MD ?? Date of Service: 09/09/24 ?? Procedure(s): XR chest 2V ?? Accession Number(s): [id number] ? cc: Christa Topete MD ? EXAMINATION: [...] ??Michael Garcia MD ??09/09/2024 10:45 AM EST ?? RP ? Dictated By: ?Mcihael Garcia MD ? Signed By: ?<Electronically signed by Michael Garcia MD in OV> ?09/09/24 1045 ? DD/ 0838 ? TD/TT: 09/09/24 0900 ? Bioinformatics Assistant: SR ? Procedure Note Roxy, Image - 09/09/2024 [facility] [address] [place] [address] XRay Report Signed Patient: Shakira Mata#: [id number] 8 : 1965Acct:[id number] Age/Sex: 59 / FADM Date: 09/09/24 Loc: HO.HHCX Attending Dr: Christa Topete MD Ordering Physician: Christa Topete MD Date of Service: 09/09/24 Procedure(s): XR chest 2V Accession Number(s): [id number] cc: Christa Topete MD EXAMINATION: XR CHEST [...] Garcia MD 09/09/2024 10:45 AM EST Workstation: [email or web address] Dictated By: Michael Garcia MD Signed By: <Electronically signed by Michael Garcia MD in OV> 09/09/24 1045 DD/ 0838 TD/TT: 09/09/24 0900 Bioinformatics Assistant: SR Christa Topete MD IMG XR PROCEDURES Final Resul t * (ABNORMAL) T-SPOT??.TB (09/03/2024 11:35 AM EST) T Spot TB Positive( A) Negative [facility] Comment: Diagnosing or excluding tuberculosis [...] as aquantitative test. TS PANEL A 9 [facility] TS PANEL B 0 [facility] Negative Control Passed [facility] Positive Control Passed [facility] Comment:For additional infor rony, please refer tohttp://education.Dynadec/faq/ZJB072(This link is being provided for informational/educational purposes only.)THIS TEST WAS PERFORMED AT:[employer] [id number] [place] [address]SFDTXBCDEAN CARDENAS MD,PHD 09/03/2024 11:3 5 AM EST 09/03/2024 2:10 PM EST us Christa Topete MD LAB BLOOD ORDERABLES Final Re sult [facility] [address] [place] [phone] * Pap Smear (02/06/2024 4:00 PM EDT) Swab 02/06/2024 4:00 PM EDT 02/10/2024 11:30 AM EDT Narrative [facility] - 02/25/2024 12:30 PM EDT ----- ------- Name: Kristine Mata ?Age/Sex: 58/F ? : 1965 Unit#: [id number] ?? Attend Dr: Christa Topete MD ?Re02/06/24 ?Status: DEP REF ? Location: HO.CHCLNP ? Disch: ? ----- ------- SPEC : [id number] ? RECD: 02/10/24 ? STATUS: ??SOUT ? REQ NUM: [id number] ? PEÑA: 02/06/24-1600 ? SUBM DR: Christa Topete MD ? ENTERED: ??02/10/24-3673 ?SP TYPE: Pap Smr ?OTHR : ? ORDERED: ??Pap Smear ? Interpretation ?? Satisfactory for evaluation. ?? Negative for intraepithelial lesion or malignancy. ?Clinical Information LMP: Postmenopausal Previous PAP test: Unknown date/findings ? Material Received ?? ThinPrep-Vaginal/Cervical ----- ------- Signed (signature on file) NIKI Preciado (ASCP) 02/25/24 1230 ? ----- ------- ? END OF REPORT ? us Christa Topete MD LAB CYTOLOGY ORDERABLES Final Result [facility] [address] [place] [address] [phone] * BI Mammogram Screening Tomosynthesis Bilateral (01/21/2024 4:45 PM EDT) Anatomical Region Laterality Modality Breast Bilateral Mammography 01/21/2024 4:45 PM EDT Narrative 02/03/2024 4:26 AM EDT ? [place] [facility] ? [address] ?[place] [address] ? Mammography Report ? Signed ? Patient: Yahyani,Kristine ?MR#: [id number] ?? 8 ? : 1965 ?Acct:[id number] ? Age/Sex: 58 / F ?ADM Date: 01/21/24 ? Loc: HO.MAMMO ? Attending Dr: Christa Topete MD ? Ordering Physician: Christa Topete MD ?Results: 1Nega ?? tive ? Date of Service: 01/21/24 ?Follow Up: 1 Year From Orig ?? inal Mammogram ? Procedure(s): MM tomosynthesis screening BI ?? Accession Number(s): [id number] ? cc: Christa Topete MD ? EXAMINATION: [...] by Tiffanie Jean MD in OV> ? 02/03/242 ? DD/ 1645 ? TD/TT: ? Bioinformatics Assistant: ? Procedure Note Donnevaehmichaelomarter, Image - 02/03/2024 Christel [facility] [address] [place] [address] Mammography Report Signed Patient: Shakira Mata#: [id number] 8 : 1965Acct:[id number] Age/Sex: 58 / FADM Date: 01/21/24 Loc: HO.MAMMO Attending Dr: Christa Topete MD Ordering Physician: Christa Topete MDResults: 1Nega tive Date of Service: 01/21/24Follow Up: 1 Year From Orig inal Mammogram Procedure(s): MM tomosynthesis screening BI Accession Number(s): [id number] cc: Christa Topete MD EXAMINATION: MM SCREENING [...] in OV> 02/03/24 0422 DD/ 1645 TD/TT: Bioinformatics Assistant: Christa Topete MD IMG BI PROCEDURES Final Resul t * Hepatitis C Antibody with Reflex to HCV, RNA, Quantitative, Real-Time PCR (12/23/2023 10:11 AM EST) Hepatitis C Antibody Nonreactive Nonreactive [facility] Comment:Antibodies to HCV no t detected; does not exclude early acuteHCV infection. Blood Venous blood specimen / Unknown 12/23/2023 10:11 AM EST 12/23/2023 2:26 PM EST Christa Topete MD LAB BLOOD ORDERABLES Final Re sult [facility] [address] [place] [phone] * HIV-1/2 Antigen and Antibodies, Fourth Generation, with Reflexes (12/23/2023 10:11 AM EST) HIV AB/AG Nonreactive Nonreactive [facility] Comment:HIV-1 p24 Ag and/or HIV-1/HIV-2 Ab not detected.A test result that is nonreactive does not exclude thepossibility of exposure to or infection with HIV-1 and/orHIV-2. Nonreactive results in this assay for individualswith prior exposure to HIV-1 and/or HIV-2 may be due toantigen and antibody levels that are below the limit ofdetection of this assay.The [employer] Alinity HIV Ag/Ab Combo assay result andsupplemental assay results should be interpreted inconjunction with the patient's clinical presentation,history and other laboratory results. If the results areinconsistent with clinical evidence, additional testing issuggested to confirm the result. Blood Venous blood specimen / Unknown 12/23/2023 10:11 AM EST 12/23/2023 2:26 PM EST Christa Topete MD LAB BLOOD ORDERABLES Final Re sult Performing Organization Address [facility] Co de Phone Number [facility] [address] [place] [phone] * Lipid Panel, Standard (10/09/2023 8:08 AM EST) Triglycerides 89 <150 mg/dL [facility] Comment:Desirable Triglyceri de: less than 150 mg/dLBorderline High Triglyceride 150-199 mg/dLHigh Triglyceride: 200-499 mg/dLVery High Triglyceride: greater than or equal to 5OO mg/dL Cholesterol 160 <200 mg/dL [facility] Comment:Desirable Cholestero l: less than 200 mg/dLBorderline High Cholesterol: 200-239 mg/dLHigh Cholesterol: greater than 239 mg/dL LDL Cholesterol Calculated 87 <100 mg/dL [facility] Comment:Desirable LDL: less than 100 mg/dLNear Optimal/Above Optimal LDL: 110- 129 mg/dLBorderline High LDL: 130-159 mg/dLHigh LDL: 160-189 mg/dLVery High LDL: greater than or equal to 190 mg/dL HDL Cholesterol 56 >40 mg/dL [facility] Comment:Desirable HDL: great er than 40 mg/dL Note: This HDL assay may give artificially low results in patients with liver disease. Blood Venous blood specimen / Unknown 10/09/2023 8:08 AM EST 10/09/2023 11:12 AM EST us Christa Topete MD LAB BLOOD ORDERABLES Final Re sult Performing Organization Address [facility]/ZIP Co de Phone Number [facility] [address] [place] [phone] * HP Diabetic Foot Exam (08/22/2023) Narrative Christa Topete MD - 08/22/2023 Normal. Result [facility] Christa Topete MD HEALTH MAINTENANCE Final Resu lt * Albumin, Random Urine W/O Creatinine (01/31/2023 10:10 AM EDT) Albumin, Urine 0.4 See Note: mg/dL [employer] Comment: Reference Range: Reference Range Not established ELIZABETH [facility] Comment: The ADA defines abnormalities in albumin [...] AM EDT 01/31/2023 10:11 AM EDT [facility] - 02/01/2023 7:35 PM EDT FASTING:NO FASTING: NO Result [facility] Christa Topete MD LAB URINE ORDERABLES Final Re sult [facility] [address], [place] [address] [employer] [address] [place] [phone] * Hm Colonoscopy (03/14/2017) Colonoscopy Normal Normal Narrative Cydney Gottlieb - 03/14/2017 Recommended 10 year follow up Historical Provider HEALTH MAINTENANCE Final Result from Last 3 Months or Most Recently Relevant to Health Maintenance Insurance [place] [facility] MEDICAID [place] [phone] Care Teams Picking Supervisor Relationship Specialty Start Date End Date Christa Topete MD [address] [place] [phone] PCP - General Family Medicine 09/13/21
--- OUTSIDE RECORDS SUMMARY | 2024-11-21 08:41 | XMS_ITS | Encounter Summary ---
Author Organization [employer] Address [address] [facility] [address] 7t [place] [address] Care Team Providers Care Curve Cleaner Name Role Phone Christa Topete MD Primary Care Provider [phone] Encounter Details Date Type Department Care Team (Late st Contact Info) Description 09/04/[address] [facility] MEDICINE [address] [place] [address] Cydney Gottlieb Social History Tobacco Use Types [...] documented as of this encounter Care Teams Curve Cleaner Relationship Specialty Start Date End Date Christa Topete MD [address] [place] [address] PCP - General Family Medicine 09/13/21 documented as of this encounter
--- OUTSIDE RECORDS SUMMARY | 2024-11-21 08:42 | XMS_ITS | Encounter Summary ---
Author Organization [employer] Address 75 [facility] 7t [place] [address] Care Team Providers Care Rock Lather Name Role Phone Christa Topete MD Primary Care Provider [phone] Encounter Details Date Type Department Care Team ([facility] st Contact Info) Description 11/02/2024 Telephone [employer] [address] [place] [address] Christa Topete MD [address] [place] [address] Social History Tobacco Use Types Packs/Day Years [...] documented as of this encounter Care Teams Rock Lather Relationship Specialty Start Date End Date Christa Topete MD [address] [place] [address] PCP - General Family Medicine 09/13/21 documented as of this encounter
--- OUTSIDE RECORDS SUMMARY | 2024-11-21 08:42 | XMS_ITS | Encounter Summary ---
Author Organization [employer] Address 75 [facility] 7t [place] [address] Care Team Providers Care Senior Patient Account Representative Name Role Phone Christa Topete MD Primary Care Provider [phone] Reason for Visit * Reason Comments Med Change Request Encounter Details Date Type Department Care Team ([facility] st Contact Info) Description 02/10/2024 Refill [facility] CHC MED & PEDS [address] [place], [place] [phone] Christa Topete MD [address] [place] [address] Social History Tobacco Use Types Packs/Day Years [...] documented as of this encounter Care Teams Senior Patient Account Representative Relationship Specialty Start Date End Date Christa Topete MD [address] [place] [address] PCP - General Family Medicine 09/13/21 documented as of this encounter
== END 2024-11-21 08:37 | disposition home or self-care (01) ==
LOC: HO.MRI 08:36
PROVIDERS: Visit Provider Orthopaedic Surgery
DX: M25.311 Other instability, right shoulder (principal)
CPT/HCPCS: 73221

== ENCOUNTER → 2024-11-21 08:46 | Outpatient (BNV) | payer MEDICAID, SELFPAY | PROVIDERS: Visit Provider Radiology Diagnostic Radiology | DX: M25.311 Other instability, right shoulder (principal) | CPT/HCPCS: 73221 ==

== ENCOUNTER 2025-01-14 13:03 | Outpatient (AMB) | payer MEDICAID, SELFPAY ==
[2025-01-14 13:08] VITALS: BMI 38.9
--- NOTE | 2025-01-14 13:08 | MHC.OFFVIS ---
Vital Signs 01/14/25 13:08 Height 5 ft 1 in Weight 206 lb BMI 38.9 Intake Visit Reasons: OV-MRI review RT shoulder Intake Note: Kristine is a 59 year old right hand dominant female who presents today for review of her right shoulder MRI results. The patient describes her pain as sharp in nature. She does take Tylenol at night to help her sleep. She reports mild weakness when lifting her right hand above shoulder height. Allergies metformin Adverse Reaction (Severe, Verified 01/14/25 13:08) Diarrhea Medication List - Last Reconciled 01/14/25 by Bacilio Vernon MD aspirin 81 mg PO BEDTIME cholecalciferol (vitamin D3) (Vitamin D3) 50 mcg PO QAM gabapentin 600 mg PO BEDTIME glipizide ER 10 mg PO QAM insulin glargine (Lantus Solostar U-100 Insulin) 44 units subcut DAILY lisinopril 5 mg PO QAM pravastatin 80 mg PO BEDTIME tirzepatide (Mounjaro) mg subcut PFSH Medical History Diabetes Hypercholesteremia Hypertension Social History Alcohol intake: never Patient Tobacco Use Status: Never used Tobacco Current occupation: rt handed Physical Exam Vital Signs: BMI result Body Mass Index 38.9 Const Other: Well-nourished well-developed very friendly female awake alert and oriented x3 in no acute distress Extrem Other: Right shoulder examination shows slightly decreased range of motion when compared to her left shoulder, 4+ out of 5 strength with supraspinatus testing, positive impingement signs, tenderness over her acromioclavicular joint, no instability Results Reviewed Results Reviewed: MRI of the patient's right shoulder shows a type 3 acromion, severe acromioclavicular joint narrowing, a calcium deposit within the supraspinatus tendon, signal change within the supraspinatus tendon consistent with possible rotator cuff tendinosis versus a small tear Assessment & Plan Assessment & Plan (1) Impingement of right shoulder: Code(s): M25.811 - Other specified joint disorders, right shoulder Category: Medical Plan Ms. Mata presents with right shoulder pain due to impingement syndrome, acromioclavicular joint arthritis, calcific tendinitis and rotator cuff tendinosis versus a small tear. I had a lengthy discussion with the patient regarding the treatment options. At this point the patient's symptoms are tolerable to her. She will continue with her hjitj-qq-srsniq exercises to prevent stiffness. She will follow up with me on an as-needed basis should her symptoms worsen in any way. Feel free to call me at any time should questions regarding her orthopedic management arise. I spent 20 minutes in reviewing the patient's records and imaging studies, seeing the patient and documenting in the medical record. Coding Level of Care Code Est Pt Level 3 (59211) Complex EM visit Add On G2211 Diagnoses Impingement of right shoulder M25.811
== END 2025-01-14 13:15 | disposition home or self-care (01) ==
LOC: HO.HOS 13:04
PROVIDERS: Visit Provider Orthopaedic Surgery
DX: M25.811 Other specified joint disorders, right shoulder (principal); M75.41 Impingement syndrome of right shoulder
CPT/HCPCS: 99213

== ENCOUNTER → 2025-01-14 13:03 | Outpatient (BNVA) | payer MEDICAID, SELFPAY | PROVIDERS: Visit Provider Orthopaedic Surgery | DX: M25.811 Other specified joint disorders, right shoulder (principal) | CPT/HCPCS: 99212 ==

== ENCOUNTER 2025-01-28 11:07 | Outpatient (REF) | payer MEDICAID, SELFPAY ==
--- OUTSIDE RECORDS SUMMARY | 2025-01-28 13:27 | XMS_ITS | Encounter Summary ---
Author Organization [employer] Address [address] [facility] [address] [place] [address] Care Team Providers Care Payroll Accounting Manager Name Role Phone Christa Topete MD Primary Care Provider [phone] Reason for Visit * Reason Comments Med Refill Encounter Details Date Type Department Care Team ([facility] st Contact Info) Description 10/15/2024 Refill [facility] [address] [place], [place] [phone] Christa Topete MD [address] [place] [address] Social History Tobacco Use Types Packs/Day Years [...] documented in this encounter Plan of Treatment Upcoming Encounters Date Type Department Care Team (Late st Contact Info) Description 02/22/2025 9:00 AM EDT Office Visit [facility] [address] [place] [address] Suad Cerda documented as of this encounter Visit Diagnoses Not on filedocumented in this encounter Additional Health Concerns Assessment Noted Time PHQ-9 Depression Total Score: 3 09/28/20 24 10:48 AM EST documented as of this encounter Care Teams Payroll Accounting Manager Relationship Specialty Start Date End Date Christa Topete MD [address] [place] [address] PCP - General Family Medicine 09/13/21 documented as of this encounter
--- OUTSIDE RECORDS SUMMARY | 2025-01-28 13:27 | XMS_ITS | Encounter Summary ---
Author Organization [employer] Address [address] [place] [address] Care Team Providers Care Senior Net Developer Name Role Phone Christa Topete MD Primary Care Provider [phone] Reason for Visit * Reason Comments Med Refill Encounter Details Date Type Department Care Team ([facility] st Contact Info) Description 01/26/2025 Refill [facility] [address] [place], [place] [phone] Christa Topete MD [address] [place] [address] Type 2 diabetes mellitus without complications (CMS/HCC) Social History Tobacco Use Types Packs/Day Years [...] as of this encounter Plan of Treatment Upcoming Encounters Date Type Department Care Team (Late st Contact Info) Description 02/22/2025 9:00 AM EDT Office Visit [facility] [address] [place] [address] Suad Cerda documented as of this encounter Visit Diagnoses Diagnosis Type 2 diabetes mellitus without complications (CMS/HCC) documented in this encounter Additional Health Concerns Assessment Noted Time PHQ-9 Depression Total Score: 3 09/28/20 24 10:48 AM EST documented as of this encounter Care Teams Senior Net Developer Relationship Specialty Start Date End Date Christa Topete MD [address] [place] [address] PCP - General Family Medicine 09/13/21 documented as of this encounter
--- OUTSIDE RECORDS SUMMARY | 2025-01-28 13:27 | XMS_ITS | Encounter Summary ---
Author Organization [employer] Address [address] [facility] [address] [place] [address] Care Team Providers Care Hygiene Assistant Name Role Phone Christa Topete MD Primary Care Provider [phone] Reason for Visit * Reason Comments Med Change Request Encounter Details Date Type Department Care Team ([facility] st Contact Info) Description 02/10/2024 Refill [facility] [address] [place], [place] [phone] Christa Topete MD [address] [place] [address] Social History Tobacco Use Types Packs/Day Years [...] Description 02/22/2025 9:00 AM EDT Office Visit [facility] [address] [place] [address] Suad Cerda documented as of this encounter Visit Diagnoses Not on filedocumented in this encounter Additional Health Concerns Assessment Noted Time PHQ-9 Depression Total Score: 8 02/01/20 23 9:11 AM EDT documented as of this encounter Care Teams Hygiene Assistant Relationship Specialty Start Date End Date Christa Topete MD [address] [place] [address] PCP - General Family Medicine 09/13/21 documented as of this encounter
--- OUTSIDE RECORDS SUMMARY | 2025-01-28 13:27 | XMS_ITS | Encounter Summary ---
Author Organization [employer] Address [address] [place] [address] Care Team Providers Care Housing And Residence Life Director Name Role Phone Christa Topete MD Primary Care Provider [phone] Encounter Details Date Type Department Care Team (Late st Contact Info) Description 09/04/2023 Abstract [facility] [address] [place] [address] Cydney Gottlieb Social History Tobacco Use Types [...] Description 02/22/2025 9:00 AM EDT Office Visit [facility] [address] [place] [address] Suad Cerda documented as of this encounter Procedures Procedure Name Priority Date/Time Associated Diagnosis Comments COLONOSCOPY Routine 03/14/2017 documented in this encounter Results * Hm Colonoscopy (03/14/2017) Colonoscopy Normal Normal Narrative CheryCydney ruff - 03/14/2017 Recommended 10 year follow up Historical Provider HEALTH MAINTENANCE Final Result documented in this encounter Visit Diagnoses Not on filedocumented in this encounter Additional Health Concerns Assessment Noted Time PHQ-9 Depression Total Score: 8 02/01/20 23 9:11 AM EDT documented as of this encounter Care Teams Housing And Residence Life Director Relationship Specialty Start Date End Date Christa Topete MD [address] [place] [address] PCP - General Family Medicine 09/13/21 documented as of this encounter
--- OUTSIDE RECORDS SUMMARY | 2025-01-28 13:27 | XMS_ITS | Encounter Summary ---
Author Organization [employer] Address [address] [facility] [address] [place] [address] Care Team Providers Care Expediter Name Role Phone Christa Topete MD Primary Care Provider [phone] Reason for Visit * Reason Comments Med Refill Encounter Details Date Type Department Care Team (Late Contact Info) Description 05/12/2023 Refill [facility] [address] [place], [place] [phone] Christa Topete MD [address] [place] [address] Social History Tobacco Use Types Packs/Day Years [...] Upcoming Encounters Date Type Department Care Team ([facility] Contact Info) Description 02/22/2025 9:00 AM EDT Office Visit [facility] [address] [place] [address] Suad Cerda documented as of this encounter Visit Diagnoses Not on filedocumented in this encounter Additional Health Concerns Assessment Noted Time PHQ-9 Depression Total Score: 8 02/01/20 23 9:11 AM EDT documented as of this encounter Care Teams Expediter Relationship Specialty Start Date End Date Christa Topete MD [address] [place] [address] PCP - General Family Medicine 09/13/21 documented as of this encounter
--- OUTSIDE RECORDS SUMMARY | 2025-01-28 13:27 | XMS_ITS | Encounter Summary ---
Author Organization [facility] [employer] [facility] Address [address] [facility] [address] [place] [address] Care Team Providers Care Wrapper Counter Name Role Phone Christa Topete MD Primary Care Provider [phone] Encounter Details Date Type Department Care Team (Late st Contact Info) Description 12/04/2022 Orders Only [facility] [address] [place] [address] Yenni Cardenas LPN Social History Tobacco Use [...] Visit [facility] [address] [place] [address] Suad Cerda documented as of this encounter Visit Diagnoses Not on filedocumented in this encounter Care Teams Wrapper Counter Relationship Specialty Start Date End Date Christa Topete MD [address] [place], [place] [phone] PCP - General Family Medicine 09/13/21 documented as of this encounter
--- OUTSIDE RECORDS SUMMARY | 2025-01-28 13:27 | XMS_ITS | Encounter Summary ---
Author Organization [facility] [employer] Address [address] [facility] [address] [place] [address] Care Team Providers Care Emergency Veterinarian Name Role Phone Christa Topete MD Primary Care Provider [phone] Encounter Details Date Type Department Care Team (Latest Contact Info) Description 11/09/2021 Abstract [facility] CONVERSIONS Dental, Provider, DDS Social History [...] Upcoming Encounters Date Type Department Care Team ( st Contact Info) Description 02/22/2025 9:00 AM EDT Office Visit [facility] [address] [place] [address] Suad Cerda documented as of this encounter Visit Diagnoses Not on filedocumented in this encounter Care Teams Emergency Veterinarian Relationship Specialty Start Date End Date Christa Topete MD [address] [place] [address] PCP - General Family Medicine 09/13/21 documented as of this encounter
--- OUTSIDE RECORDS SUMMARY | 2025-01-28 13:27 | XMS_ITS | Encounter Summary ---
Author Organization [facility] [employer] Address [address] [facility] [address] [place] [address] Care Team Providers Care Entrepreneurship Program Director Name Role Phone Christa Topete MD Primary Care Provider [phone] Encounter Details Date Type Department Care Team (Latest Contact Info) Description 12/14/2019 Abstract [facility] CONVERSIONS Dental, Provider, DDS Social History Tobacco [...] Description 02/22/2025 9:00 AM EDT Office Visit [facility] [address] [place] [address] Suad Cerda documented as of this encounter Visit Diagnoses Not on filedocumented in this encounter Care Teams Entrepreneurship Program Director Relationship Specialty Start Date End Date Christa Topete MD [address] [place] [address] PCP - General Family Medicine 09/13/21 documented as of this encounter
--- OUTSIDE RECORDS SUMMARY | 2025-01-28 13:27 | XMS_ITS | Clinical Summary ---
Author Organization [employer] Address [address] [facility] [address] [place] [address] Care Team Providers Care Security Infrastructure Engineer Name Role Phone Christa Topete MD Primary Care Provider [phone] Allergies Active Allergy Reactions Criticality Noted Date Comments Metformin Diarrhea 04/01/2023 Medications FREESTYLE LITE test stripIndications :Type 2 diabetes mellitus with hyperglycemia, with long-term current use of insulin ([facility]) TEST BLOOD SUGAR FOUR TIMES DAILY 100 strip 11 023 Active glucose blood (FREESTYLE LITE) test strip Use 1 by To Skin route 4 times every day 021 Active Blood Glucose Monitoring Suppl (FreeStyle [place] Lite) w/Device kit TEST BLOOD SUGAR FOUR TIMES DAILY 022 Active Lantus SoloStar 100 UNIT/ML pen 562 Units. Pat using 62 units HS 023 Active insulin lispro (HumaLOG) 100 UNIT/ML injection INJECT SUBCUTANEOUSLY THREE TIMES DAILY 10 MINUTES BEFORE MEALS DIRECTED PER SLIDING SCALE; 100-149 INJECT 10 UNITS; 150-199 12 UNITS; 200-249 14 UNITS; 250-299 16 UNITS; 300-349 18 UNITS; 350-399 20 UNITS; >400 22 UNITS 023 Active glipiZIDE (Glucotrol) 10 MG tablet Take 1 tablet (10 mg) by mouth before breakfast and before evening meal. 180 tablet 1 023 Active butalbital-aceta minophen-caffein e 50-325-40 MG tabletIndication s:Other migraine without status migrainosus, not intractable TAKE 1 OR 2 TABLETS BY MOUTH EVERY 4 HOURS NEEDED. NO MORE THAN 6 TABLETS IN 24 HOURS 20 tablet Active Alcohol Swabs (Alcohol Prep) 70 % pads USE DIRECTED TO INJECT INSULIN AND TEST BLOOD SUGAR. MAX 5 PER DAY Active clotrimazole (Lotrimin) 1 % vaginal cream USE DIRECTED TOPICALLY ON AFFECTED AREA(S) TWICE DAILY Active Multiple Vitamin (One-Daily Multi-Vitamin) tablet Take 1 tablet by mouth in the morning. Active Continuous Blood Gluc Ice Skating Coach (FreeStyle [place]) device TEST BLOOD SUGAR FOUR TIMES DAILY DIRECTED 1 each Active chlorhexidine (Peridex) 0.12 % solution Use 15 ml to rinse twice daily. 473 mL Active gabapentin (Neurontin) 600 MG tablet Take 600 mg by mouth at bedtime. Active glucose blood test strip See Instructions, # 100 each, Refills 11, Tot. Refills 11, Maintenance, use as directed for Type 2 Diabetes Mellitus on insulin to test blood sugar up to 3 times per day, 08/23/23 9:33:00 EDT, Supply, 158, cm, 08/23/23 7:34:00 EDT, Height, 92, kg, ... Active ondansetron (Zofran) 4 MG tablet Take 1 tablet (4 mg) by mouth every 8 (eight) hours if needed for nausea or vomiting. 40 tablet Active acetaminophen (Tylenol Extra Strength) 500 MG tablet Take 1 tablet (500 mg) by mouth every 8 (eight) hours if needed for mild pain. 60 tablet Active ibuprofen 600 MG tablet TAKE 1 TABLET BY MOUTH THREE TIMES DAILY 90 tablet Active benzonatate (Tessalon) 200 MG capsule TAKE 1 CAPSULE BY MOUTH THREE TIMES DAILY IN THE MORNING, AT NOON, AND AT BEDTIME NEEDED FOR COUGH FOR UP TO 7 DAYS DO NOT BREAK, CRUSH, DISSOLVE OR CHEW 20 capsule Active Magnesium Oxide, Laxative, 500 MG tablet Take 500 mg by mouth Once per day. Active propranolol (Inderal) 10 MG tablet TAKE 1 TABLET BY MOUTH EVERY DAY 90 tablet Active Pain Reliever Plus 250-250-65 MG tablet TAKE 2 TABLETS BY MOUTH EVERY 8 HOURS NEEDED FOR HEADACHE 30 tablet Active Clotrimazole Anti-Fungal 1 % creamIndications :Tinea pedis of both feet APPLY TOPICALLY TO AFFECTED AREA(S) TWICE DAILY 90 g Active ammonium lactate (Amlactin) 12 % cream APPLY TOPICALLY NEEDED FOR DRY SKIN 140 g 5 Active cyclobenzaprine (Flexeril) 5 MG tablet 30 each, 0 Refill(s), TAKE 1 TABLET BY MOUTH THREE TIMES DAILY FOR 10 DAYS, 0 Refills, 08/12/24 8:12:00 AM EDT, Partial fill upon patient request if the prescription is for a schedule II opioid drug. Active Mounjaro 15 MG/0.5ML solution auto-injector Active Blood Pressure kit 1 kit 2 times daily. 1 kit 025 2025 Active lisinopril 5 MG tablet TAKE 1 TABLET BY MOUTH EVERY MORNING 90 tablet 3 Active Multiple Vitamin (multivitamin) tablet Take 1 tablet by mouth Once per day. Women 50+ Advanced 30 tablet 3 025 Active B-D ULTRAFINE III SHORT PEN 31G X 8 MM misc USE DIRECTED DAILY WITH INSULIN 100 each Active loperamide (Imodium) 2 MG capsule TAKE 2 CAPSULES BY MOUTH ONCE AFTER FIRST LOOSE STOOL. THEN TAKE 1 CAPSULE BY MOUTH AFTER EACH LOOSE STOOL DIRECTED. NO MORE THAN 8 CAPSULES IN 24 HOURS. 180 capsule 3 Active Aspirin Low Dose 81 MG EC tablet TAKE 1 TABLET BY MOUTH AT BEDTIME 90 tablet 1 Active pravastatin (Pravachol) 80 MG tablet TAKE 1 TABLET BY MOUTH AT BEDTIME 90 tablet 1 Active D3 Super Strength 50 MCG (2000 UT) capsule TAKE 1 CAPSULE BY MOUTH EVERY MORNING 120 capsule Active TRUEplus Lancets 33G miscIndications: Type 2 diabetes mellitus without complications (CMS/HCC) TEST BLOOD SUGAR UP TO THREE TIMES DAILY 100 each Active FREESTYLE LITE test stripIndications :Type 2 diabetes mellitus without complications (CMS/HCC) TEST BLOOD SUGAR UP TO THREE TIMES DAILY 100 strip 11 04/09/2 025 Active TRUEplus Lancets 33G misc TEST BLOOD SUGAR FOUR TIMES DAILY 023 2024 Discontinued D3 Super Strength 50 MCG (1999 UT) capsule TAKE 1 CAPSULE BY MOUTH EVERY MORNING 120 capsule 1 024 2024 Discontinued pravastatin (Pravachol) 80 MG tablet TAKE 1 TABLET BY MOUTH AT BEDTIME 90 tablet 1 024 2024 Discontinued Aspirin Low Dose 81 MG EC tablet TAKE 1 TABLET BY MOUTH AT BEDTIME 90 tablet 1 024 2024 Discontinued Active Problems Problem Noted Date Diagnosed Date Neuropathic pain of finger of left hand 09/28/20 24 Assessment & Plan (09/28/2024 11:31 AM EST): [...] symptoms. F/u in 8 weeks. Relevant Medications Szuyilw-Wqfqntiybpqlu-Zoemirkm ( Excedrin Migraine) 250-250-65 MG tablet Cyclobenzaprine [...] of moderate intensity exercise. Patient is on Monjauro due to her diabetes which should help with weight management. Assessment & Plan (10/07/2023 4:26 PM EST): Discussed calorie deficit, recommended reduction of 20-30% of maintenance calories; oil pipeline operator referral offered. Recommended to decrease soda and [...] TAR 35%. Continue to follow up with Machine Gun Mechanic. Assessment & Plan (05/25/2024 11:28 AM EDT): [...] implementation of diet modifications. Offer referral to oil pipeline operator, patient denied. Will restart glipizide at 10 mg. Will follow up in 3 months. ppt with clock repair technician scheduled for 04/15/23. 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 Will lower lantus from 55 units to 51 units and start on Januvia 100mg. Will also hold metformin for x2 weeks due to chronic diarrhea and follow up in 2-3 weeks. Assessment & Plan (02/11/2023 11:39 AM EDT): Patient with elevated fasting glucose at time of visit with a reading of 325 mg/dL. Advised to crop picker sensor and consistently monitor levls at home. Instructed to hold metformin and will follow up in 2 weeks to assess. Encounters Date Type Department Care Team Description 01/26/2025 Refill [facility] [address] [place] [address] Christa Topete MD Type 2 diabetes mellitus without complications (CMS/HCC) 01/21/2025 Refill [facility] PEDS [address] [place] [address] Christa Topete MD 01/01/2025 Population Health Risk Score [facility] ([facility]) Department [address] [place] [phone] Provider, Population Health Generic 12/13/2024 Refill [facility] [address] [place] [address] Christa Topete MD 12/09/2024 Refill [facility] MEDICINE [address] [place] [address] Christa Topete MD 12/03/2024 Refill [facility] [address] [place] [address] Christa Topete MD 12/03/2024 Refill [facility] [address] [place] [address] Christa Topete MD Type 2 diabetes mellitus without complications (CMS/HCC) 11/25/2024 Refill [facility] [address] [place] [address] Christa Topete MD 11/06/2024 Telephone [facility] [address] [place] [address] Christa Topete MD 11/04/2024 Telephone [facility] [address] [place] [address] Christa Topete MD 11/02/2024 Telephone [facility] [address] [place], [place] [phone] Christa Topete MD from Last 3 Months [...] 09/28/2024 10:47 AM EST Plan of Treatment Upcoming Encounters Date Type Department Care Team (Late st Contact Info) Description 02/22/2025 9:00 AM EDT Office Visit [facility] ADULT DENTAL [address] [place] [address] Suad Cerda Health Maintenance Due Date Last Done Comments [...] 09/28/2025 09/28/2024 Depression Screening 09/28/2025 09/28/2024, 09/28/20 Mammogram 01/20/2026 01/21/2024, 12/21, 01/11/2022, Additional history exists Cervical Cancer Screening 02/05/2027 Pap Smear 02/05/2027 02/06/2024 Colonoscopy 03/14/2027 03/14/2017 Colorectal Cancer Screening 03/14/2027 DTaP/Tdap/Td Vaccines (3 - Td or Tdap) 12/22/2033 12/23/2023, 01/04/2011 HIV Screening Completed 12/23/2023 Hepatitis C Screening Completed 12/23/2023 Pneumococcal Vaccine: 50+ Years Completed 12/23/2023, 01/04/2011 Meningococcal Vaccine Aged Out [...] complication, with long-term current use of insulin ([facility]) PROPHYLAXIS - ADULT Routine 05/12/2024 9 :00 [...] 01/31/2023 10:10 AM EDT Vague bodily discomfort INTRAORAL - COMPLETE SERIES OF RADIOGRAPHIC IMAGES Routine 12/14/2019 12:00 AM EST HM COLONOSCOPY Routine 03/14/2017 from Last 3 Months or Most Recently Relevant to Health Maintenance Results * (ABNORMAL) POCT HGB A1C (09/28/2024 11:09 AM EST) Hemoglobin A1C 7.4(A) 4.0 - 6.0 % QC Media Lot # [id number] Lot# Expiration Date [id number] Blood 09/28/2024 11:0 9 AM EST us Christa Topete MD POINT OF CARE TEST ENTER/EDIT ORDERABLES Final Result * Pap Smear (02/06/2024 4:00 PM EDT) Swab 02/06/2024 4:00 PM EDT 02/10/2024 11:30 AM EDT Narrative [facility] - 02/25/2024 12:30 PM EDT ----- ------- Name: Kristine Mata ?Age/Sex: 58/F ? : 1965 Unit#: [id number] ?? Attend Dr: Christa Topete MD ?Re02/06/24 ?Status: DEP REF ? Location: HO.CHCLNP ? Disch: ? ----- ------- SPEC : [id number] ? RECD: 02/10/24-1130 ? STATUS: ??SOUT ? REQ NUM: [id number] ? PEÑA: 02/06/24-1600 ? SUBM DR: Christa Topete MD ? ENTERED: ??02/10/24-1409 ?SP TYPE: Pap Smr ?OTHR DR: ? ORDERED: ??Pap Smear ? Interpretation ?? Satisfactory for evaluation. ?? Negative for intraepithelial lesion or malignancy. ?Clinical Information LMP: Postmenopausal Previous PAP test: Unknown date/findings ? Material Received ?? ThinPrep-Vaginal/Cervical ----- ------- Signed (signature on file) NIKI Preciado ([facility]) 02/25/24 1230 ? ----- ------- ? END OF REPORT ? us Christa Topete MD LAB CYTOLOGY ORDERABLES Final Result [facility] [address] [facility] [place] [address] [phone] * BI Mammogram Screening Tomosynthesis Bilateral (01/21/2024 4:45 PM EDT) Anatomical Region Laterality Modality Breast Bilateral Mammography 01/21/2024 4:45 PM EDT Narrative 02/03/2024 4:26 AM EDT ? [facility] [place] ? [address] ?[place] [address] ? Mammography Report ? Signed ? Patient: Sierraani,Kristine ?MR#: [id number] ?? 8 ? : 1965 ?Acct:[id number] ? Age/Sex: 58 / F ?ADM Date: 01/20/ ? Loc: HO.MAMMO ? Attending Dr: Christa Topete MD ? Ordering Physician: Christa Topete MD ?Results: 1Nega ?? tive ? Date of Service: 01/21/24 ?Follow Up: 1 Year From Orig ?? inal Mammogram ? Procedure(s): MM tomosynthesis screening BI ?? Accession Number(s): [id number] ? cc: Christa Topete MD ? EXAMINATION: [...] 0422 ? DD/ 1645 ? TD/TT: ? Highway Patrol Officer: ? Procedure Note Roxy, Image - 02/03/2024 [facility] [address] [place] [address] Dr. [place], [place] [address] Mammography Report Signed Patient: Shakira Mata#: [id number] 8 : 1965Acct:[id number] Age/Sex: 58 / FADM Date: 01/21/24 Loc: BILL Attending Dr: Christa Topete MD Ordering Physician: Christa Topete MDResults: 1Nega tive Date of Service: 01/21/24Follow Up: 1 Year From [facility] ina Mammogram Procedure(s): MM tomosynthesis screening BI Accession Number(s): [id number] cc: Christa Topete MD EXAMINATION: MM SCREENING [...] in OV> 02/03/24 0422 DD/ 1645 TD/TT: Highway Patrol Officer: Christa Topete MD IMG BI PROCEDURES Final Resul t * Hepatitis C Antibody with Reflex to HCV, RNA, Quantitative, Real-Time PCR (12/23/2023 10:11 AM EST) Hepatitis C Antibody Nonreactive Nonreactive [facility] Comment:Antibodies to HCV no t detected; does not exclude early acuteHCV infection. Blood Venous blood specimen / Unknown 12/23/2023 10:11 AM EST 12/23/2023 2:26 PM EST Christa Topete MD LAB BLOOD ORDERABLES Final Re sult [facility] [address] [place] [address] [phone] * HIV-1/2 Antigen and Antibodies, Fourth Generation, with Reflexes (12/23/2023 10:11 AM EST) HIV AB/AG Nonreactive Nonreactive [facility] Comment:HIV-1 p24 Ag and/or HIV-1/HIV-2 Ab not detected.A test result that is nonreactive does not exclude thepossibility of exposure to or infection with HIV-1 and/orHIV-2. Nonreactive results in this assay for individualswith prior exposure to HIV-1 and/or HIV-2 may be due toantigen and antibody levels that are below the limit ofdetection of this assay.The upad HIV Ag/Ab Combo assay result andsupplemental assay results should be interpreted inconjunction with the patient's clinical presentation,history and other laboratory results. If the results areinconsistent with clinical evidence, additional testing issuggested to confirm the result. Blood Venous blood specimen / Unknown 12/23/2023 10:11 AM EST 12/23/2023 2:26 PM EST us Christa Topete MD LAB BLOOD ORDERABLES Final Re sult Performing Organization Address [facility]/ZIP Co de Phone Number [facility] [address] [place] [address] [phone] * Lipid Panel, Standard (10/09/2023 8:08 AM EST) Triglycerides 89 <150 mg/dL [facility] Comment:Desirable Triglyceri de: less than 150 mg/dLBorderline High Triglyceride 150-199 mg/dLHigh Triglyceride: 200-499 mg/dLVery High Triglyceride: greater than or equal to 5OO mg/dL Cholesterol 160 <200 mg/dL [facility] Comment:Desirable Cholestero l: less than 200 mg/dLBorderline High Cholesterol: 200-239 mg/dLHigh Cholesterol: greater than 239 mg/dL LDL Cholesterol Calculated 87 <100 mg/dL [facility] Comment:Desirable LDL: less than 100 mg/dLNear Optimal/Above Optimal LDL: 110- 129 mg/dLBorderline High LDL: 130-159 mg/dLHigh LDL: 160-189 mg/dLVery High LDL: greater than or equal to 190 mg/dL HDL Cholesterol 56 >40 mg/dL [facility] Comment:Desirable HDL: great er than 40 mg/dL Note: This HDL assay may give artificially low results in patients with liver disease. Blood Venous blood specimen / Unknown 10/09/2023 8:08 AM EST 10/09/2023 11:12 AM EST us Christa Topete MD LAB BLOOD ORDERABLES Final Re sult [facility] [address] [place] [phone] * HP Diabetic Foot Exam (08/22/2023) Narrative Christa Topete MD - 08/22/2023 Normal. us Christa Topete MD HEALTH MAINTENANCE Final Resu lt * Albumin, Random Urine W/O Creatinine (01/31/2023 10:10 AM EDT) Albumin, Urine 0.4 See Note: mg/dL [facility] [employer] Comment: Reference Range: Reference Range Not established [facility] [place] [employer] Comment: The ADA defines abnormalities in albumin [...] 10:10 AM EDT 01/31/2023 10:11 AM EDT Narrative [facility] - 02/01/2023 7:35 PM EDT FASTING:NO FASTING: NO us Christa Topete MD LAB URINE ORDERABLES Final Re sult [facility] [address], [place] [address] [facility] [address] [place] [address] * Hm Colonoscopy (03/14/2017) Colonoscopy Normal Normal Narrative Cydney Gottlieb - 03/14/2017 Recommended 10 year follow up Historical Provider MD HEALTH MAINTENANCE Final Result from Last 3 Months or Most Recently Relevant to Health Maintenance [place] [address] [address] [facility] MEDICAID STAND ADULT Care Teams Security Infrastructure Engineer Relationship Specialty Start Date End Date Christa Topete MD [address] [place] [phone] PCP - General Family Medicine 09/13/21
== END 2025-01-28 11:08 | disposition home or self-care (01) ==
LOC: HO.MAMMO 11:07
PROVIDERS: PCP Family Medicine; Visit Provider Family Medicine
DX: Z12.31 Encounter for screening mammogram for malignant neoplasm of breast (principal)
CPT/HCPCS: 77063; 77067

== ENCOUNTER → 2025-01-28 11:15 | Outpatient (BNV) | payer MEDICAID, SELFPAY | PROVIDERS: PCP Family Medicine; Visit Provider Internal Medicine | DX: Z12.31 Encounter for screening mammogram for malignant neoplasm of breast (principal) | CPT/HCPCS: 77063; 77067 ==

== ENCOUNTER 2025-03-12 07:55 | Outpatient (REF) | payer MEDICAID, SELFPAY ==
--- NOTE | ~2025-03-12 | US_ITS ---
EXAMINATION: MM DIAGNOSTIC DIGITAL BREAST TOMOSYNTHESIS, LEFT Limited left breast ultrasound. CLINICAL INFORMATION: Call back from screening for focal asymmetry in the retroareolar region of the left breast. COMPARISON: Mammography: [facility] on PACS. TECHNIQUE: Digital breast tomosynthesis is performed in both the craniocaudal and mediolateral oblique views along with computer-aided detection (CAD). Synthesized 2D images are generated from the tomosynthesis. FINDINGS: There are scattered areas of fibroglandular density (ACR BI-RADS breast composition Category b). Focal asymmetry in the retroareolar region slightly upper central left breast middle depth persist on additional imaging projections. No suspicious calcifications or other abnormal findings. Targeted color Doppler ultrasound scanning in the retroareolar region and scanning from 10-2 o'clock demonstrates normal fibroglandular breast tissue. There is no sonographic abnormal findings. US/US breast LT limited mamm only IMPRESSION: Left: Focal asymmetry retroareolar region middle depth without sonographic correlate. Recommend six-month follow-up mammography for further evaluation of stability. ASSESSMENT: BI-RADS BI-RADS 3 - Probably benign finding(s) - 6 month follow-up suggested RECOMMENDATION: 6 Month F/U Results were provided to the patient at time of visit by the technologist. This patient's information was entered into a reminder system with a target due date for their next mammogram. Electronically signed by: Savita Jordan DO 03/12/2025 09:44 AM EDT
--- OUTSIDE RECORDS SUMMARY | 2025-03-12 07:58 | XMS_ITS | Encounter Summary ---
Author Organization [employer] Address [address] [facility] [address] [place] [address] Care Team Providers Care Machine Tool Mechanic Name Role Phone Christa Topete MD Primary Care Provider [phone] Reason for Visit * Reason Comments Med Refill Encounter Details Date Type Department Care Team (Late Contact Info) Description 05/12/2023 Refill [facility] PED[facility] [address] [place], [place] [phone] Christa Topete MD [address] [place] [address] Social History Tobacco Use Types Packs/Day Years [...] Encounters Date Type Department Care Team (Late Contact Info) Description 04/02/2025 10:00 AM EDT Office Visit [facility] ADULT D[facility] [address] [place] [address] Sunil Coronado, JULISSAS [address] [place] [address] 08/30/2025 8:00 AM EST Office Visit [facility] [address] [place] [address] Suda Cerda documented as of this encounter Visit Diagnoses Not on filedocumented in this encounter Additional Health Concerns Assessment Noted Time PHQ-9 Depression Total Score: 8 02/01/20 23 9:11 AM EDT documented as of this encounter Care Teams Machine Tool Mechanic Relationship Specialty Start Date End Date Christa Topete MD [address] [place] [address] PCP - General Family Medicine 09/13/21 documented as of this encounter
== END 2025-03-12 07:56 | disposition home or self-care (01) ==
LOC: HO.MAMMO 07:55
PROVIDERS: PCP Family Medicine; Visit Provider Family Medicine
DX: R91.8 Other nonspecific abnormal finding of lung field (principal)
CPT/HCPCS: 76642; 77061; 77065

== ENCOUNTER → 2025-03-12 09:00 | Outpatient (BNV) | payer MEDICAID, SELFPAY | PROVIDERS: PCP Family Medicine; Visit Provider Internal Medicine | DX: N64.89 Other specified disorders of breast (principal) | CPT/HCPCS: 76642; 77061; 77065 ==

== ENCOUNTER 2025-06-17 10:47 | Outpatient (REF) | payer SELFPAY ==
--- OUTSIDE RECORDS SUMMARY | 2025-06-16 09:45 | XMS_ITS | Encounter Summary ---
Author Organization [employer] Address [address] [facility] 7[address] [place] [address] Care Team Providers Care Market Editor Name Role Phone Christa Topete MD Primary Care Provider [phone] Reason for Referral * Consultation (Routine) - Authorized Specialty Diagnoses / Procedures Referred By Ancelmo chan Referred To Contact Podiatry Diagnoses Type 2 diabetes mellitus without complication, with long-term current use of insulin (CMS/HCC) Tinea pedis of both feet Christa Topete MD [address] [place] [address] Phone: tel: fax: Grant Malloy, DPSantana [address] [facility] 1st Floor (Left) [place] [address] Phone: tel: fax: Referral ID Status Reason Start Date Expiration Date Visits Requested Visits Authorized [id number] Authorized Specialty Services Required 06/16/2025 06/16/2026 1 1 Reason for Visit * Reason Comments Follow-up Encounter Details Date Type Department Care Team (Late st Contact Info) Description 06/16/2025 9:45 AM EDT Office Visit [facility] MED & PEDS [address] [place], [place] [phone] Christa Topete MD [address] [place] [address] Class 1 obesity (Primary Dx); Type 2 diabetes mellitus without complication, with long-term current use of insulin (CMS/HCC); Chronic right shoulder pain; Tinea pedis of both feet; Swelling of both lower extremities Social History Tobacco Use Types Packs/Day Years Used Date Smoking Tobacco: Never Passive Smoke Exposure: Never Smokeless Tobacco: Never Tobacco Cessation:Counseling Given: Not Answered Alcohol Use Standard Drinks/Week Comments Never 0 (1 standard drink = 0.6 oz pur e alcohol) Depression Answer Date Recorded Patient Health Questionnaire-9 Score 0 06/16/2025 Patient Health Questionnaire-9 Score 0 06/16/2025 Last PHQ-9: Questionnaire Data Not on file 0 06/16/2025 Housing Stability Answer Date Recorded What is your housing situation today? I have oumou corbin 02/24/[address] you li ve. Do you have problems with any of the following? None of the above 02/24/2025 Food Insecurity Answer Date Recorded Within the past 12 months, y ou worried that your food would run out before you got money to buy more: Never True 02/24/2025 Within the past 12 months,th e food you bought just didn't last and you didn't have enough money to get more: Never True 04/2025 Transportation Answer Date Recorded In the past 12 months, has l ack of transportation kept you from medical appts, meetings, work or from getting things needed for daily living? No 02/24/2025 Utilities Answer Date Recorded In the past 12 months, has t he electric, gas, oil or water company threatened to shut off services in your home? No 02/24/2025 Depression Answer Date Recorded Patient Health Questionnaire-2 Score 0 06/16/2025 Internet Access Answer Date Recorded Internet Access Q1 Yes 02/24/2025 Internet Access Q2 Not on file 02/24/2025 Comments No Sex and Gender Information Value Date Recorded Sex Assigned at Female 08/20/2022 10:21 AM EDT Legal Sex Female 10:21 AM EDT Gender Identity Female 08/20/2022 10:21 AM EDT Sexual Orientation Straight 08/20/2022 10 :21 AM EDT documented as of this encounter Last Filed Vital Signs Vital Sign Reading Time Taken Comments Blood Pressure 126/80 06/16/2025 9:46 AM EDT Pulse 60 06/16/2025 9:46 AM EDT Temperature 36.8 C (98.2 F) 06/16/2025 9:46 AM EDT Respiratory Rate 20 06/16/2025 9:46 AM EDT Oxygen Saturation - - Inhaled Oxygen Concentration - - Weight 88.6 kg (195 lb 6.4 oz) 06/16/2025 9:46 A M EDT Height 154.9 cm (5' 1 ) 06/16/2025 9:46 AM EDT Body Mass Index 36.92 06/16/2025 9:46 AM EDT documented in this encounter Functional Status * Over the past 2 weeks, how often have you been bothered by any of the following problems? Question Answer Date of Assessment Author Patient Health Questionnaire-2 Score 0 06/16/2025 9:48 AM EDT Naomi Recio MA * Little interest or pleasure in doing things Answer Date of Assessment Author Not at all 06/16/2025 9:48 AM EDT Naomi Ramos MA * Feeling down, depressed, or hopeless Answer Date of Assessment Author Not at all 06/16/2025 9:48 AM EDT Naomi Ramos MA * Trouble falling or staying asleep, or sleeping too much Answer Date of Assessment Author Not at all 06/16/2025 9:48 AM EDT Naomi Ramos MA * Feeling tired or having little energy Answer Date of Assessment Author Not at all 06/16/2025 9:48 AM EDT Naomi Ramos MA * Poor appetite or overeating Answer Date of Assessment Author Not at all 06/16/2025 9:48 AM EDT Naomi Ramos MA * Feeling bad about yourself - or that you are a failure or have let yourself or your family down Answer Date of Assessment Author Not at all 06/16/2025 9:48 AM EDT Naomi Ramos MA * Trouble concentrating on things, such as reading the newspaper or watching television Answer Date of Assessment Author Not at all 06/16/2025 9:48 AM EDT Naomi Ramos MA * Moving or speaking so slowly that other people could have noticed? Or the opposite - being so fidgety or restless that you have been moving around a lot more than usual. Answer Date of Assessment Author Not at all 06/16/2025 9:48 AM EDT Naomi Ramos MA * Thoughts that you would be better off or hurting yourself in some way Answer Date of Assessment Author Not at all 06/16/2025 9:48 AM EDT Naomi Ramos MA * Patient Health Questionnaire-9 Score Answer Date of Assessment Author 0 06/16/2025 9:48 AM EDT Naomi Ramos MA * Over the last 2 weeks, how often have you been bothered by any of the following problems? Question Answer Date of Assessment Author Feeling nervous, anxious, or on edge 0 06/16/2025 9:48 AM EDT Naomi Recio MA Not being able to stop or control worrying 0 06/16/2025 9:48 AM EDT Naomi Recio MA Worrying too much about different things 0 06/16/2025 9:48 AM EDT Naomi Recio MA Trouble relaxing 0 06/16/2025 9:48 AM EDT Naomi Fuller MA Being so restless that it is hard to sit still 0 06/16/2025 9:48 AM EDT Naomi Recio MA Becoming easily annoyed or irritable 0 06/16/2025 9:48 AM EDT Naomi Recio MA Feeling afraid as if something awful might happen 0 06/16/2025 9:48 AM EDT Naomi Boateng MA RAMON-7 Total Score 0 06/16/2025 9:48 AM EDT Naomi Recio MA documented as of this encounter Progress Notes * Christa Topete MD - 06/16/2025 9:45 AM EDT Subjective Patient ID: Kristine Mata is a 60 y.o. female who presents for Follow-up. Kristine is a 60-year-old female with a history of diabetes presenting for follow- up of her condition and management of shoulder pain. She reports improvement in her shoulder pain with physical therapy and requests additional sessions. The patient's diabetes management has shown improvement, with her A1C at 7.1, which is slightly higher than her previous visit but better controlled compared to 3 months ago. She is currently on Mounjaro 15 and Lantus 56 units. Kristine reports using short-acting insulin before meals, checking her sensor first and adjusting the dose based on a scale provided by her pet technologist. She mentions experiencing a low blood sugar reading the previous night. Kristine reports new onset of foot swelling, which she associates with insulin use. The swelling tendsto worsen throughout the day. She also complains of fungal infection on her feet. Additionally, shementions experiencing eye itching, for which she received treatment from an eye doctor, but has misplaced the prescription information. The patient expresses concern about her energy levels, stating she no longer has the energy to walkfor an hour daily as she used to, and finds using stairs challenging. This change in her physical capabilities is impacting her daily functioning and exercise routine. Medical History - Diabetes mellitus, currently managed with insulin and Mounjaro - Shoulder pain, previously treated with physical therapy - Foot swelling associated with insulin use - Fungal infection of the feet Medications and Supplements - Mounjaro 15 mg - Lantus 56 units - Short-acting insulin - Taken 15 minutes before meals - Dosage based on blood glucose levels - Naproxen - Taken once a day at night with food Social History - Occupation: Works a lot, making it difficult to come for fasting labs - Exercise: Previously walked one hour a day, but currently lacks energy for walking or using stairs Review of Systems General: Positive for fatigue, lack of energy. HEENT: Positive for eye itching. Cardiovascular: Positive for leg swelling. Musculoskeletal: Positive for shoulder pain. Review of Systems Objective Visit Vitals BP 126/80 (BP Location: Right arm, Patient Position: Sitting, BP Cuff Size: Large adult) Pulse 60 Temp 98.2 ??F (36.8 ??C) (Oral) Resp 20 Ht 5' 1 (1.549 m) Wt 195 lb 6.4 oz (88.6 kg) BMI 36.92 kg/m?? OB Status Postmenopausal Smoking Status Never BSA 1.95 m?? Physical Exam Constitutional: General: She is not in acute distress. Appearance: She is obese. She is not ill-appearing. HENT: Head: Normocephalic and atraumatic. Nose: Nose normal. No congestion. Mouth/Throat: Mouth: Mucous membranes are moist. Comments: Has braces Eyes: Extraocular Movements: Extraocular movements intact. Pupils: Pupils are equal, round, and reactive to light. Cardiovascular: Rate and Rhythm: Normal rate and regular rhythm. Pulses: Dorsalis pedis pulses are 2+ on the right side and 2+ on the left side. Posterior tibial pulses are 2+ on the right side and 2+ on the left side. Heart sounds: Normal heart sounds. No murmur heard. Pulmonary: Effort: Pulmonary effort is normal. No respiratory distress. Breath sounds: Normal breath sounds. Abdominal: General: Bowel sounds are normal. There is no distension. Palpations: Abdomen is soft. There is no mass. Tenderness: There is no abdominal tenderness. There is no guarding. Musculoskeletal: General: Normal range of motion. Cervical back: Normal range of motion. Right lower leg: No edema. Left lower leg: No edema. Right foot: Normal range of motion. No deformity, bunion, Charcot foot or prominent metatarsal heads. Left foot: Normal range of motion. No deformity, bunion, Charcot foot or prominent metatarsal heads. Feet: Right foot: Protective Sensation: 7 sites tested. 7 sites sensed. Skin integrity: Dry skin present. No ulcer, blister, skin breakdown, erythema, warmth or callus. Toenail Condition: Right toenails are normal. Left foot: Protective Sensation: 7 sites tested. 7 sites sensed. Skin integrity: Dry skin present. No ulcer, blister, skin breakdown, erythema, warmth or callus. Toenail Condition: Left toenails are normal. Comments: Interdigit maceration Skin: Capillary Refill: Capillary refill takes less than 2 seconds. Findings: No rash. Neurological: General: No focal deficit present. Mental Status: She is alert and oriented to person, place, and time. Psychiatric: Mood and Affect: Mood normal. Behavior: Behavior normal. Vital Signs - Weight: 195 lbs Physical Examination Musculoskeletal: Feet noted to be swollen. Fungal infection observed on feet. Laboratory, Imaging, and Diagnostic Test Results - Date: Not specified - Hemoglobin A1c: 7.1% (higher than previous result) - Previous results: - Hemoglobin A1c: Lower than 7.1% (exact value and date not specified) - Continuous Glucose Monitoring (CGM) results (last 7 days): - Time above range: 24% - Time very above range: 9% Assessment/Plan Problem List Items Addressed This Visit Class 1 obesity - Primary Relevant Medications glucagon (Baqsimi One Pack) 3 MG/DOSE nasal powder Other Relevant Orders Vitamin D, 25-Hydroxy, Total, Immunoassay Type 2 diabetes mellitus without complication, with long-term current use of insulin ([facility]) Relevant Medications glucagon (Baqsimi One Pack) 3 MG/DOSE nasal powder Other Relevant Orders POCT HGB A1C (Completed) POCT Glucose (Completed) Referral to Podiatry Chronic right shoulder pain Relevant Medications meloxicam (Mobic) 15 MG tablet Other Visit Diagnoses Tinea pedis of both feet Relevant Medications terbinafine (LamISIL AT) 1 % cream Other Relevant Orders Referral to Podiatry Kristine is a 60-year-old female with a history of diabetes mellitus type 2 presenting for follow-up of diabetes management, shoulder pain, and foot swelling. Diabetes Mellitus Type 2 Assessment: Patient's current A1C is 7.1, which is slightly elevated from the previous visit and above the target of less than 7. Continuous glucose monitoring shows 24% time above range and 9% very above range in the last seven days, indicating improved glycemic control compared to 3 months ago. Patient is currently on Mounjaro 15 mg and Lantus 56 units. Short-acting insulin is used before mealsbased on a sliding scale. Recent episode of nocturnal hypoglycemia reported. Weight has increased by 5 pounds since the last visit in February, now at 195 lbs. Plan: - Continue Mounjaro 15 mg - Continue Lantus 56 units - Continue short-acting insulin before meals as per pet technologist's sliding scale - Order laboratory tests including comprehensive metabolic panel, lipid panel, albumin, and vitaminD levels - Maintain current insulin regimen to avoid hypoglycemic episodes - Follow up with pet technologist for potential adjustment of insulin sliding scale - Schedule follow-up appointment in 3 months for diabetes management - Encourage regular exercise as tolerated Shoulder Pain Assessment: Patient reports improvement in shoulder pain with previous physical therapy. Current physical therapy prescription has . Plan: - Patient to call on August 04 to request new referral for physical therapy - Schedule appointment in July to initiate new physical therapy referral Bilateral Lower Extremity Edema Assessment: Patient reports new onset of bilateral foot swelling, which worsens throughout the day.Swelling is possibly related to insulin therapy. Physical examination reveals visible edema and presence of fungal infection. Plan: - Prescribe antifungal medication for foot fungus - Order podiatry consultation - Prescribe compression stockings, pending insurance approval Ocular Pruritus Assessment: Patient reports ongoing eye itching. [facility] [place] Patient lost the prescription for eye drops that were helping with the itching. Plan: - Patient to contact previous eye care provider for medication refill and send medication name through patient portal if unable to obtain refill - Request medical records from previous eye examination Fatigue Assessment: Patient reports lack of energy affecting daily activities, including difficulty using stairs and decreased ability to maintain previous exercise routine of walking one hour per day. Plan: - Reassess fatigue at next follow-up appointment - Encourage gradual increase in physical activity as tolerated documented in this encounter Plan of Treatment Upcoming Encounters Date Type Department Care Team (Late st Contact Info) Description 08/30/2025 8:00 AM EST Office Visit [facility] ADULT DENTAL [address] [place] [address] Suad Cerda Scheduled Orders Name Type Priority Associated Diagnoses Orde r Schedule Vitamin D, 25-Hydroxy, Total, Immunoassay Lab Routine Class 1 obesity Expected: 06/16/2025 (Approximate), Expires: 06/16/2026 Scheduled Referrals Name Type Priority Associated Diagnoses Orde r Schedule Referral to Podiatry Outpatient Referral Routine Type 2 diabetes mellitus without complication, with long-term current use of insulin ([facility]) Tinea pedis of both feet Expected: 06/16/2025 (Approximate), Expires: 06/16/2026 documented as of this encounter Procedures Procedure Name Priority Date/Time Associated Diagnosis Comments POCT GLYCATED HEMOGLOBIN, TOTAL Routine 06/16/2025 9:49 AM EDT Type 2 diabetes mellitus without complication, with long-term current use of insulin ([facility]) POCT GLUCOSE Routine 06/16/2025 9:49 AM EDT Type 2 diabetes mellitus without complication, with long-term current use of insulin ([facility]) LINK DIABETIC FOOT EXAM Routine 06/16/2025 documented in this encounter Results * POCT Glucose (06/16/2025 9:49 AM EDT) Glucose Blood, POC 111 60 - 200 mg/dL Blood Capillary blood specimen / Unknown 06/16/2025 9:49 AM EDT Christa Topete MD POINT OF CARE TEST ENTER/EDIT ORDERABLES Final Result * (ABNORMAL) POCT HGB A1C (06/16/2025 9:49 AM EDT) Hemoglobin A1C 7.1(A) 4.0 - 5.7 % QC Media Lot # [id number] Lot# Expiration Date Blood 06/16/2025 9:49 AM EDT Christa Topete MD POINT OF CARE TEST ENTER/EDIT ORDERABLES Final Result * HP Diabetic Foot Exam (06/16/2025) Narrative Christa Topete MD - 06/16/2025 Tinea pedis, dry skin, no ulcers Christa Topete MD HEALTH MAINTENANCE Final Resu lt documented in this encounter Visit Diagnoses Diagnosis Class 1 obesity- Primary Type 2 diabetes mellitus without complication, with long-term current use of insulin ([facility]) Chronic right shoulder pain Pain in joint, shoulder region Tinea pedis of both feet Swelling of both lower extremities documented in this encounter Additional Health Concerns Assessment Noted Time PHQ-9 Depression Total Score: 0 06/16/20 25 9:48 AM EDT documented as of this encounter Care Teams Market Editor Relationship Specialty Start Date End Date Christa Topete MD [address] [place] [id number] PCP - General Family Medicine 09/13/21 documented as of this encounter
--- OUTSIDE RECORDS SUMMARY | 2025-06-17 12:16 | XMS_ITS | Encounter Summary ---
Author Organization [employer] Address [address] [facility] 7t [place] [address] Care Team Providers Care Truck Driver Salesperson Name Role Phone Christa Topete MD Primary Care Provider [phone] Reason for Visit * Reason Comments Med Refill Encounter Details Date Type Department Care Team ([facility] st Contact Info) Description 10/15/2024 Refill [facility] MED & PEDS [address] [place], [place] [phone] Christa Topete MD [address] [place] [address] Social History Tobacco Use Types Packs/Day Years [...] Description 08/30/2025 8:00 AM EST Office Visit [facility] ADULT DENTAL [address] [place] [address] Suad Cerda documented as of this encounter Visit Diagnoses Not on filedocumented in this encounter Additional Health Concerns Assessment Noted Time PHQ-9 Depression Total Score: 3 09/28/20 24 10:48 AM EST documented as of this encounter Care Teams Truck Driver Salesperson Relationship Specialty Start Date End Date Christa Topete MD [address] [place] [address] PCP - General Family Medicine 09/13/21 documented as of this encounter
--- OUTSIDE RECORDS SUMMARY | 2025-06-17 12:16 | XMS_ITS | Encounter Summary ---
Author Organization [employer] Address [address] [place] [address] Care Team Providers Care Guide Delegate Name Role Phone Christa Topete MD Primary Care Provider [phone] Encounter Details Date Type Department Care Team (Latest Contact Info) Description 06/16/2025 Travel Social History Tobacco Use Types Packs/Day Years [...] AM EDT documented as of this encounter Functional Status * Over the [...] Recio [place] documented as of this encounter Plan of Treatment Upcoming Encounters Date Type Department Care Team (Late st Contact Info) Description 08/30/2025 8:00 AM EST Office Visit [facility] D[facility] [address] [place] [address] Suad Cerda documented as of this encounter Visit Diagnoses Not on filedocumented in this encounter Additional Health Concerns Assessment Noted Time PHQ-9 Depression Total Score: 0 08/27/20 25 9:48 AM EDT documented as of this encounter Care Teams Guide Delegate Relationship Specialty Start Date End Date Christa Topete MD [address] [place] [address] PCP - General Family Medicine 09/13/21 documented as of this encounter
--- OUTSIDE RECORDS SUMMARY | 2025-06-17 12:16 | XMS_ITS | Encounter Summary ---
Author Organization [employer] Address [address] [place] [address] Care Team Providers Care Globe Mounter Name Role Phone Christa Topete MD Primary Care Provider Encounter Details Date Type Department Care Team ([facility] st Contact Info) Description 06/10/2025 Refill [facility] MED[facility] [address] [place] [address] Christa Topete MD [address] [place] [address] Type 2 diabetes mellitus without complications (CMS/HCC); Type 2 diabetes mellitus with hyperglycemia, with long-term current use of insulin (CMS/[facility]) Social History Tobacco Use Types Packs/Day Years [...] your housing situation today? I have oumou sing 02/24/[address] you li [...] Recorded Patient Health Questionnaire-2 Score 2 09/28/2024 Internet Access Answer Date Recorded Internet Access [...] Description 08/30/2025 8:00 AM EST Office Visit [facility] ADULT DENT[facility] [address] [place] [address] Suad Cerda documented as of this encounter Visit Diagnoses Diagnosis Type 2 diabetes mellitus without complications (CMS/HCC) Type 2 diabetes mellitus with hyperglycemia, with long-term current use of insulin (CMS/HCC) documented in this encounter Additional Health Concerns Assessment Noted Time PHQ-9 Depression Total Score: 3 09/28/20 24 10:48 AM EST documented as of this encounter Care Teams Globe Mounter Relationship Specialty Start Date End Date Christa Topete MD [address] [place] [address] PCP - General Family Medicine 09/13/21 documented as of this encounter
--- OUTSIDE RECORDS SUMMARY | 2025-06-17 12:16 | XMS_ITS | Encounter Summary ---
Author Organization [employer] Address [address] [place] [address] Care Team Providers Care Industrial Waste Treatment Technician Name Role Phone Christa Topete MD Primary Care Provider Encounter Details Date Type Department Care Team (Late st Contact Info) Description 09/04/2023 Abstract [facility] MED[facility] [address] [place] [address] Cydney Gottlieb Social History Tobacco Use Types [...] Description 08/30/2025 8:00 AM EST Office Visit [facility] ADULT DENTAL [address] [place] [address] Suad Cerda documented as of this encounter Procedures Procedure Name Priority Date/Time Associated Diagnosis Comments COLONOSCOPY Routine 03/14/2017 documented in this encounter Results * Colonoscopy (03/14/2017) Colonoscopy Normal Normal Narrative Cydney Gottlieb - 03/14/2017 Recommended 10 year follow up Historical Provider HEALTH MAINTENANCE Final Result documented in this encounter Visit Diagnoses Not on filedocumented in this encounter Additional Health Concerns Assessment Noted Time PHQ-9 Depression Total Score: 8 02/01/20 23 9:11 AM EDT documented as of this encounter Care Teams Industrial Waste Treatment Technician Relationship Specialty Start Date End Date Christa Topete MD [address] [place] [address] PCP - General Family Medicine 09/13/21 documented as of this encounter
--- OUTSIDE RECORDS SUMMARY | 2025-06-17 12:16 | XMS_ITS | Encounter Summary ---
Author Organization [employer] Address [address] [place] [address] Care Team Providers Care Petroleum Terminal Plant Operator Name Role Phone Christa Topete MD Primary Care Provider [phone] Reason for Visit * Reason Onset Date Comments chart prep 06/15/2025 Encounter Details Date Type Department Care Team ([facility] st Contact Info) Description 06/15/2025 Telephone [facility] [address] [place] [address] Christa Topete MD [address] [place] [address] chart prep Social History Tobacco Use Types Packs/Day Years [...] encounter Miscellaneous Notes * Telephone Encounter - Yuval Polo MA - 06/15/2025 9:44 AM EDT Chart Prep Labs: not done Images: done Referrals: complete Vaccines due: Covid and Flu Screenings: foot exam Overdue care gaps: A1c, Glucose, and Disability screen documented in this encounter Plan of Treatment Upcoming Encounters Date Type Department Care Team (Late st Contact Info) Description 08/30/2025 8:00 AM EST Office Visit [facility] ADULT DENTAL [address] [place] [address] Suad Cerda documented as of this encounter Visit Diagnoses Not on filedocumented in this encounter Additional Health Concerns Assessment Noted Time PHQ-9 Depression Total Score: 3 09/28/20 24 10:48 AM EST documented as of this encounter Care Teams Petroleum Terminal Plant Operator Relationship Specialty Start Date End Date Christa Topete MD [address] [place] [address] PCP - General Family Medicine 09/13/21 documented as of this encounter
--- OUTSIDE RECORDS SUMMARY | 2025-06-17 12:16 | XMS_ITS | Encounter Summary ---
Author Organization [employer] Address [address] [place] [address] Care Team Providers Care Fruit And Vegetable Parer Name Role Phone Christa Topete MD Primary Care Provider [phone] Reason for Visit * Reason Onset Date Comments Nurse Triage 02/10/2025 Encounter Details Date Type Department Care Team ([facility] st Contact Info) Description 02/10/2025 Telephone [facility] [address] [place] [address] Christa Topete MD [address] [place] [address] Nurse Triage Social History Tobacco Use Types [...] encounter Miscellaneous Notes * Telephone Encounter - Cristina Kasper RN - 02/10/2025 11:08 AM EDT Triage call Pt reports right arm pain from shoulder to hand. Denies injury, numbness, radiation of pain. Pt reports not being able to sleep well for 6 days now due the pain. Pt is able to raise the arm and cone picker items with hand. Pt is taking motrin and applying heat with some relief. ASK apt withDr. Crowe @ 1100am. Pt is offered to come to [facility] today to be seen by provider but declines. Pt agrees with this disposition. Insurance is verified as active prior to booking. Protocol Used: Arm Pain (Adult) Protocol-Based Disposition: See in Office or Video Visit within 2 Weeks Video visit not offered Positive Triage Question: * Mild pain (e.g., does not interfere with normal activities) and present > 7 days * All higher-acuity triage questions were negative Care Advice Discussed: * Pain Medicines * Pain Medicines - Extra Notes and Warnings * Reasons To Call Back - Moderate pain (such as interferes with normal activities) lasts more than 3 days - Mild pain lasts more than 7 days - Arm swelling occurs - Signs of infection occur (such as spreading redness, warmth, fever) - You become worse * Use a Cold Pack for Pain * Use Heat After 48 Hours for Pain * Telephone Encounter - Vivienne Caputo - 02/10/2025 10:31 AM EDT Symptoms: Arm Pain - Not From Injury, Leg Pain - Not From Injury Outcome: Schedule an urgent appointment (within 1 hour) or talk to a nurse or provider soon Reason: Can't use the arm normally The caller accepted this outcome. documented in this encounter Plan of Treatment Upcoming Encounters Date Type Department Care Team (Late st Contact Info) Description 08/30/2025 8:00 AM EST Office Visit [facility] ADULT DENTAL [address] [place] [address] Suad Cerda documented as of this encounter Visit Diagnoses Not on filedocumented in this encounter Additional Health Concerns Assessment Noted Time PHQ-9 Depression Total Score: 3 09/28/20 24 10:48 AM EST documented as of this encounter Care Teams Fruit And Vegetable Parer Relationship Specialty Start Date End Date Christa Topete MD [address] [place] [address] PCP - General Family Medicine 09/13/21 documented as of this encounter
--- OUTSIDE RECORDS SUMMARY | 2025-06-17 12:16 | XMS_ITS | Encounter Summary ---
Author Organization [employer] Address [address] [place] [address] Care Team Providers Care Toe Puncher Name Role Phone Christa Topete MD Primary Care Provider Encounter Details Date Type Department Care Team ([facility] st Contact Info) Description 06/10/2025 Telephone [facility] [address] [place] [address] Christa Topete MD [address] [place], [place] [id number] Social History Tobacco Use Types Packs/Day Years [...] to sit still 0 06/16/2025 9:48 AM ASHISHT Naomi Recio MA Becoming easily annoyed or irritable 0 06/16/2025 9:48 AM ASHISHT Naomi Recio MA Feeling afraid as if something awful might happen 0 06/16/2025 9:48 AM EDT Naomi Boateng MA RAMON-7 Total Score 0 06/16/2025 9:48 AM ASHISHT Naomi Recio MA documented as of this encounter Miscellaneous Notes * Telephone Encounter - Ara Moses LPN - 06/17/2025 8:31 AM EDT Rx generated and faxed to [facility] with PCP notes. ----- Message from Christa Topete MD sent at 06/16/2025 1:38 PM EDT ----- Can we send compression stockings 20-30 mmHg for BLE. * Telephone Encounter - Ara Moses LPN - 06/17/2025 8:31 AM EDT ----- Message from Christa Topete MD sent at 06/16/2025 1:38 PM EDT ----- Can we send compression stockings 20-30 mmHg for BLE. documented in this encounter Plan of Treatment Upcoming Encounters Date Type Department Care Team (Late st Contact Info) Description 08/30/2025 8:00 AM EST Office Visit [facility] ADULT DENTAL [address] [place] [address] Suad Cerda documented as of this encounter Visit Diagnoses Not on filedocumented in this encounter Additional Health Concerns Assessment Noted Time PHQ-9 Depression Total Score: 3 09/28/20 24 10:48 AM EST documented as of this encounter Care Teams Toe Puncher Relationship Specialty Start Date End Date Christa Topete MD [address] [place] [address] PCP - General Family Medicine 09/13/21 documented as of this encounter
--- OUTSIDE RECORDS SUMMARY | 2025-06-17 12:16 | XMS_ITS | Encounter Summary ---
Author Organization [employer] Address [address] [place] [address] Care Team Providers Care Slot Host Name Role Phone Christa Topete MD Primary Care Provider [phone] Encounter Details Date Type Department Care Team ([facility] st Contact Info) Description 06/10/[address] [facility] [address] [place] [address] Christa Topete MD [address] [place], [place] [phone] Type 2 diabetes mellitus without complications (CMS/HCC) [...] Description 08/30/2025 8:00 AM EST Office [facility] ADULT DENTAL [address] [place] [address] Suad Cerda documented as of this encounter Visit Diagnoses Diagnosis Type 2 diabetes mellitus without complications (CMS/HCC) documented in this encounter Additional Health Concerns Assessment Noted Time PHQ-9 Depression Total Score: 3 09/28/20 24 10:48 AM EST documented as of this encounter Care Teams Slot Host Relationship Specialty Start Date End Date Christa Topete MD [address] [place] [address] PCP - General Family Medicine 09/13/21 documented as of this encounter
--- OUTSIDE RECORDS SUMMARY | 2025-06-17 12:16 | XMS_ITS | Encounter Summary ---
Author Organization [employer] Address [address] [place] [address] Care Team Providers Care Pet Care Worker Name Role Phone Christa Topete MD Primary Care Provider [phone] Encounter Details Date Type Department Care Team ([facility] st Contact Info) Description 06/17/2025 Telephone [facility]EDS [address] [place], [place] [phone] Christa Topete MD [address] [place] [address] Social History Tobacco Use Types Packs/Day Years [...] Telephone Encounter - Kelly Chandler RN - 06/17/2025 10:34 AM EDT Patient walk-in. Stated her insurance does not cover terbinafine (LamISIL AT) 1 % cream and patient is requesting an alternative medication. Asked patient to reach out to her insurance to find out what they would cover, but she asked I send a message to provider as well. documented in this encounter Plan of Treatment Upcoming Encounters Date Type Department Care Team (Late st Contact Info) Description 08/30/2025 8:00 AM EST Office Visit [facility] ADULT DENTAL [address] [place] [address] Suad Cerda documented as of this encounter Visit Diagnoses Not on filedocumented in this encounter Additional Health Concerns Assessment Noted Time PHQ-9 Depression Total Score: 0 06/16/20 25 9:48 AM EDT documented as of this encounter Care Teams Pet Care Worker Relationship Specialty Start Date End Date Christa Topete MD [address] [place] [address] PCP - General Family Medicine 09/13/21 documented as of this encounter
--- OUTSIDE RECORDS SUMMARY | 2025-06-17 12:16 | XMS_ITS | Encounter Summary ---
Author Organization [employer] Address [address] [facility] [address] [place] [address] Care Team Providers Care Mining Professionals Name Role Phone Christa Topete MD Primary Care Provider [phone] Reason for Visit * Reason Comments Med Change Request Encounter Details Date Type Department Care Team ([facility] st Contact Info) Description 02/10/2024 Refill [facility] & PEDS [address] [place], [place] [phone] Christa Topete MD [address] [place] [address] Social History Tobacco Use Types Packs/Day Years [...] Description 08/30/2025 8:00 AM EST Office Visit [facility] ADULT DENTAL [address] [place] [address] Suad Cerda documented as of this encounter Visit Diagnoses Not on filedocumented in this encounter Additional Health Concerns Assessment Noted Time PHQ-9 Depression Total Score: 8 02/01/20 23 9:11 AM EDT documented as of this encounter Care Teams Mining Professionals Relationship Specialty Start Date End Date Christa Topete MD [address] [place] [address] PCP - General Family Medicine 09/13/21 documented as of this encounter
--- OUTSIDE RECORDS SUMMARY | 2025-06-17 12:16 | XMS_ITS | Encounter Summary ---
Author Organization [employer] Address [address] [facility] [address] [place] [address] Care Team Providers Care Savings Teller Name Role Phone Christa Topete MD Primary Care Provider [phone] Encounter Details Date Type Department Care Team (Latest Contact Info) Description 12/14/[address] [facility] CONVERSIONS Dental, Provider, DDS Social History [...] Description 08/30/2025 8:00 AM EST Office Visit [facility] ADULT DENTAL [address] [place] [address] Suad Cerda documented as of this encounter Visit Diagnoses Not on filedocumented in this encounter Care Teams Savings Teller Relationship Specialty Start Date End Date Christa Topete MD [address] [place] [address] PCP - General Family Medicine 09/13/21 documented as of this encounter
--- OUTSIDE RECORDS SUMMARY | 2025-06-17 12:16 | XMS_ITS | Encounter Summary ---
Author Organization [employer] Address [address] [facility] [address] [place] [address] Care Team Providers Care It Portfolio Manager Name Role Phone Christa Topete MD Primary Care Provider [phone] Reason for Visit * Reason Comments Med Refill Encounter Details Date Type Department Care Team (Late Contact Info) Description 05/12/2023 Refill [facility] MED & PEDS [address] [place], [place] [phone] Christa Topete MD [address] [place] [address] Social History Tobacco Use Types Packs/Day Years [...] Department Care Team (Late Contact Info) Description 08/30/2025 8:00 AM EST Office Visit [facility] ADULT DENTAL [address] [place] [address] Suad Cerda documented as of this encounter Visit Diagnoses Not on filedocumented in this encounter Additional Health Concerns Assessment Noted Time PHQ-9 Depression Total Score: 8 02/01/20 23 9:11 AM EDT documented as of this encounter Care Teams It Portfolio Manager Relationship Specialty Start Date End Date Christa Topete MD [address] [place] [address] PCP - General Family Medicine 09/13/21 documented as of this encounter
--- OUTSIDE RECORDS SUMMARY | 2025-06-17 12:16 | XMS_ITS | Clinical Summary ---
Author Organization [employer] Address [address] [facility] [address] [place] [address] Care Team Providers Care Mason Tender Name Role Phone Christa Topete MD Primary Care Provider [phone] Allergies Active Allergy Reactions Criticality Noted Date Comments Metformin Diarrhea 04/01/2023 Medications glucose blood (FREESTYLE LITE) test strip Use 1 by To Skin route 4 times every day 021 Active Blood Glucose Monitoring Suppl (FreeStyle August[place] Lite) w/Device kit TEST BLOOD SUGAR FOUR TIMES DAILY 022 Active butalbital-aceta minophen-caffein e 50-325-40 MG tabletIndication s:Other migraine without status migrainosus, not intractable TAKE 1 OR 2 TABLETS BY MOUTH EVERY 4 HOURS NEEDED. NO MORE THAN 6 TABLETS IN 24 HOURS 20 tablet 023 Active gabapentin (Neurontin) 600 MG tablet Take 600 mg by mouth at bedtime. 024 Active acetaminophen (Tylenol Extra Strength) 500 MG tablet Take 1 tablet (500 mg) by mouth every 8 (eight) hours if needed for mild pain. 60 tablet 024 Active Magnesium Oxide, Laxative, 500 MG tablet Take 500 mg by mouth Once per day. Active propranolol (Inderal) 10 MG tablet TAKE 1 TABLET BY MOUTH EVERY DAY 90 tablet 024 Active Mounjaro 15 MG/0.5ML solution auto-injector 024 Active Blood Pressure kit 1 kit 2 times daily. 1 kit 025 2025 Active lisinopril 5 MG tablet TAKE 1 TABLET BY MOUTH EVERY MORNING 90 tablet 3 025 Active B-D ULTRAFINE III SHORT PEN 31G X 8 MM misc USE DIRECTED DAILY WITH INSULIN 100 each 11 025 Active Diclofenac Sodium (Voltaren) 1 % gel Use topical BID 100 g 3 Active cyclobenzaprine (Flexeril) 10 MG tablet Take 1 tablet (10 mg) by mouth at bedtime for 20 days. 20 tablet Active Lyumjev KwikPen 100 UNIT/ML pen 025 Active FreeStyle lancets 025 Active Lantus SoloStar 100 UNIT/ML pen Inject 56 Units under the skin at bedtime. 18 mL 2 Active Multiple Vitamin (Multivitamin) tablet TAKE ONE TABLET EVERY DAY 90 tablet 1 Active ammonium lactate (Amlactin) 12 % cream APPLY TO THE AFFECTED AREA(S) TOPICALLY DAILY NEEDED DRY SKIN 140 g 5 025 Active chlorhexidine (Peridex) 0.12 % solution Use 15ml twice daily to rinse your mouth. Spit, do not swallow. 473 mL 025 Active Alcohol Swabs (Alcohol Prep) 70 % padsIndications: Type 2 diabetes mellitus without complications (CMS/HCC) USE DIRECTED TO INJECT INSULIN AND TEST BLOOD SUGAR. MAX 5 PER DAY 500 each 4 Active loperamide (Imodium) 2 MG capsule TAKE 2 CAPSULES BY MOUTH ONCE AFTER 1ST LOOSE STOOL THEN TAKE 1 CAPSULE BY MOUTH AFTER EACH LOOSE STOOL DIRECTED. NO MORE THAN 8 CAPSULES PER DAY 180 capsule 3 Active TRUEplus Lancets 33G miscIndications: Type 2 diabetes mellitus without complications (CMS/HCC) USE TID 100 each 11 Active glucose blood (FREESTYLE LITE) test stripIndications :Type 2 diabetes mellitus with hyperglycemia, with long-term current use of insulin (CMS/HCC) USE TID 100 strip 11 Active aspirin (Aspirin Low Dose) 81 MG EC tablet Take 1 tablet (81 mg) by mouth at bedtime. 90 tablet 1 Active cholecalciferol (D3 Super Strength) 50 MCG (2000 UT) capsule Take 1 capsule (50 mcg) by mouth in the morning. 120 capsule 1 Active pravastatin (Pravachol) 80 MG tablet Take 1 tablet (80 mg) by mouth at bedtime. 90 tablet 1 025 Active glucose blood (FREESTYLE LITE) test stripIndications :Type 2 diabetes mellitus without complications ([facility]) Use TID 100 strip 11 025 Active meloxicam (Mobic) 15 MG tabletIndication s:Chronic right shoulder pain Take 1 tablet (15 mg) by mouth Once per day. 90 tablet 1 025 Active Continuous Glucose Sensor (FreeStyle John 3 Plus Sensor) [facility] Freestyle John 3 PLUS Sensor, See Instructions, # 2 each, Refills 11, Tot. Refills 11, Maintenance, Use to continuously monitor BG and change sensor every 15 days E11.9, 04/29/25 9:35:00 AM EDT, Supply, 158, cm, 04/29/25 8:36:00 EDT, Height 025 Active glucagon (Baqsimi One Pack) 3 MG/DOSE nasal powder See Instructions, 3 mg Once In one nostril; dose does not need to be inhaled may repeat in 15 minutes, # 2 each, 2 Refills, Maintenance, 02/02/25 12:07:00 PM EDT, [facility], Partial fill upon patient request if the prescription is for a schedule II opioid drug., 158, cm, 02/02/25 8:15:00 EDT, Height 025 Active Embecta Pen Needle Ultrafine 31G X 5 MM [facility] 025 Active terbinafine (LamISIL AT) 1 % cream Apply topically 2 times daily. 90 g 025 Active FREESTYLE LITE test stripIndications :Type 2 diabetes mellitus with hyperglycemia, with long-term current use of insulin ([facility]) TEST BLOOD SUGAR FOUR TIMES DAILY 100 strip 11 023 2024 Discontinued(R eorder (will not trigger notification to Pharmacy)) Alcohol Swabs (Alcohol Prep) 70 % pads USE DIRECTED TO INJECT INSULIN AND TEST BLOOD SUGAR. MAX 5 PER DAY 023 2024 Discontinued Multiple Vitamin (One-Daily Multi-Vitamin) tablet Take 1 tablet by mouth in the morning. 023 2024 Discontinued(T herapy completed) glucose blood test strip See Instructions, # 100 each, Refills 11, Tot. Refills 11, Maintenance, use as directed for Type 2 Diabetes Mellitus on insulin to test blood sugar up to 3 times per day, 08/23/23 9:33:00 EDT, Supply, 158, cm, 08/23/23 7:34:00 EDT, Height, 92, kg, 11/... 023 2024 Discontinued(T herapy completed) cyclobenzaprine (Flexeril) 5 MG tablet 30 each, 0 Refill(s), TAKE 1 TABLET BY MOUTH THREE TIMES DAILY FOR 10 DAYS, 0 Refills, 08/12/24 8:12:00 AM EDT, Partial fill upon patient request if the prescription is for a schedule II opioid drug. 024 2024 Discontinued(T herapy completed) loperamide (Imodium) 2 MG capsule TAKE 2 CAPSULES BY MOUTH ONCE AFTER FIRST LOOSE STOOL. THEN TAKE 1 CAPSULE BY MOUTH AFTER EACH LOOSE STOOL DIRECTED. NO MORE THAN 8 CAPSULES IN 24 HOURS. 180 capsule 3 025 2024 Discontinued(R eorder (will not trigger notification to Pharmacy)) Aspirin Low Dose 81 MG EC tablet TAKE 1 TABLET BY MOUTH AT BEDTIME 90 tablet 1 025 2024 Discontinued(R eorder (will not trigger notification to Pharmacy)) pravastatin (Pravachol) 80 MG tablet TAKE 1 TABLET BY MOUTH AT BEDTIME 90 tablet 1 025 2024 Discontinued(R eorder (will not trigger notification to Pharmacy)) D3 Super Strength 50 MCG (1999 UT) capsule TAKE 1 CAPSULE BY MOUTH EVERY MORNING 120 capsule 1 025 2024 Discontinued(R eorder (will not trigger notification to Pharmacy)) TRUEplus Lancets 33G miscIndications: Type 2 diabetes mellitus without complications ([facility]) TEST BLOOD SUGAR UP TO THREE TIMES DAILY 100 each 11 025 2024 Discontinued(R eorder (will not trigger notification to Pharmacy)) FREESTYLE LITE test stripIndications :Type 2 diabetes mellitus without complications ([facility]) TEST BLOOD SUGAR UP TO THREE TIMES DAILY 100 strip 11 025 2024 Discontinued(R eorder (will not trigger notification to Pharmacy)) Continuous Glucose Sensor (FreeStyle John 3 Sensor) misc 025 2024 Discontinued meloxicam (Mobic) 15 MG tabletIndication s:Chronic right shoulder pain Take 1 tablet (15 mg) by mouth Once per day. 90 tablet 025 2024 Discontinued(R eorder (will not trigger notification to Pharmacy)) Active Problems Problem Noted Date Diagnosed Date Swelling of both lower extremities 06/16/2025 Tinea pedis of both feet 06/16/2025 Neuropathic pain of finger of left hand [...] symptoms. F/u in 8 weeks. Relevant Medications Jfzgiwd-Vecvhopujafhp-Elxrnbyx ( Excedrin Migraine) 250-250-65 MG tablet Cyclobenzaprine (Flexeril) 5 MG tablet Propranolol (Inderal) MG tablet Pruritus 12/23/2023 Chronic right shoulder pain 10/07/2023 Assessment & Plan (02/24/2025 12:50 PM EDT): Patient was recently seen by Dr. Crowe for shoulder pain and by an orthopedic doctor in October. Physical therapy is scheduled for March 02. . Current pain medications appear to be ineffective. Need ortho records and MRI records Plan: - Request records - Attend scheduled physical therapy on March 02 - Increase meloxicam to 15 mg - Refer to pain medicine specialist - Offer trial of tramadol (controlled substance) , patient declined Assessment & Plan (09/28/2024 11:31 AM EST): [...] n euro comp 08/22/2023 Assessment & Plan (02/24/2025 10:14 AM EDT): Lab Results Component Value Date HGBA1C 6.8 (A) 02/17/2025 GMI 6.9, TIR 72%, TR 24%, very high 4% Assessment & Plan (09/01/2023 2:04 PM EST): [...] send labs and refer to neurology. Class 1 obesity 05/17/2014 Assessment & Plan (12/23/2023 8:56 [...] recommended reduction of 20-30% of maintenance calories; maintenance advisor referral offered. Recommended to decrease soda and sugary beverage consumption. Recommended at least 20 g per meal of protein to assist with satiety. Recommended at least 150 min/week of moderate intensity exercise. In addition, patient will be sent for labs for further evaluation. -Labs: CBC, Comp. Metabolic Panel, Lipid Panel, TSH/FT4. Hypertension 02/23/2013 Assessment & Plan (02/24/2025 12:51 PM EDT): Controlled. Target BP < 130/80 mmHg per ADA. Cont lisinopril Assessment & Plan (12/23/2023 9:30 AM EST): [...] use of insulin 03/31/2012 Assessment & Plan (02/24/2025 12:49 PM EDT): Patient's diabetes control has improved with recent A1c of 6.8% and fasting glucose of 120 mg/dL. Currently on maximum dose of Mounjaro, Lantus 56 units at night, and Lyumjev on a sliding scale. Weight has increased from 193 to 200 pounds. Patient reported taking 626 units of Lantus in the EMR, which was clarified to be 56 units. Dietary choices include high-sugar foods like prunes, which may impact glycemic control. Plan: - Continue Mounjaro 15 mg (highest dose) - Continue Lantus 56 units subcutaneously at night - Continue Lyumjev on sliding scale - Continue follow-up with ware finisher - Educate on dietary choices: focus on protein (e.g., eggs, tofu), avoid high- sugar foods (e.g., croissants, prunes) - Order cholesterol and kidney function tests - Follow up in a couple of months Assessment & Plan (09/28/2024 11:32 AM EST): GMI 7.3%. TIR 65%. TAR 35%. Continue to follow up with Disability Manager. Assessment & Plan (05/25/2024 11:28 AM EDT): [...] implementation of diet modifications. Offer referral to maintenance advisor, patient denied. Will restart glipizide at 10 mg. Will follow up in 3 months. ppt with ware finisher scheduled for 04/15/23. 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 Will lower lantus from 55 units to 51 units and start on Januvia 100mg. Will also hold metformin for x2 weeks due to chronic diarrhea and follow up in 2-3 weeks. Assessment & Plan (02/11/2023 11:39 AM EDT): Patient with elevated fasting glucose at time of visit with a reading of 325 mg/dL. Advised to continuous pickling line pickler sensor and consistently monitor levls at home. Instructed to hold metformin and will follow up in 2 weeks to assess. Encounters Date Type Department Care Team Description 06/17/2025 Telephone [facility] [address] [place] [address] Christa Topete MD 06/16/2025 9:45 AM EDT Office Visit [facility] [address] [place] [address] Chritsa Topete MD Class 1 obesity (Primary Dx); Type 2 diabetes mellitus without complication, with long-term current use of insulin (CMS/HCC); Chronic right shoulder pain; Tinea pedis of both feet; Swelling of both lower extremities 06/16/2025 Travel 06/15/2025 Telephone [facility] [address] [place] [phone] Christa Topete MD chart prep 06/10/2025 Refill [facility] [address] [place] [phone] Christa Topete MD Type 2 diabetes mellitus without complications ([facility]/HCC) 06/10/2025 Telephone [facility] [address] [place] [phone] Christa Topete MD 06/10/2025 Refill [facility] [address] [place] [phone] Christa Topete MD Type 2 diabetes mellitus without complications (CMS/HCC); Type 2 diabetes mellitus with hyperglycemia, with long-term current use of insulin (CMS/HCC) 06/09/2025 Patient Outreach [facility] [address] [place] [phone] Christa Topete MD Pre-visit Planning (Pre visit planning LVM ) 05/28/2025 Refill [facility] [address] [place] [address] Grant De León MD 05/19/2025 Refill [facility] [address] [place] [address] Austin Scruggs MD Type 2 diabetes mellitus without complications ([facility]/HCC) 05/18/2025 11:00 AM EDT Office Visit [facility] [address] [place] [phone] Sunil Coronado DDS 04/02/2025 10:00 AM EDT Office Visit [facility] [address] [place] [phone] Sunil Coronado DDS 04/01/2025 Refill [facility] [address] [place] [address] Christa Topete MD from Last 3 Months Immunizations Immunization Administration Dates Next Due Influenza injectable quadriv [...] 20 06/16/2025 9:46 AM EDT Oxygen Saturation 98% 02/24/2025 9:52 AM EDT Inhaled Oxygen Concentration - - Weight 88.6 kg (195 lb 6.4 oz) 06/16/2025 9:46 A M EDT Height 154.9 cm (5' 1 ) 06/16/2025 9:46 AM EDT Body Mass Index 36.92 06/16/2025 9:46 AM EDT Plan of Treatment Upcoming Encounters Date Type Department Care Team (Late st Contact Info) Description 08/30/2025 8:00 AM EST Office Visit [facility] [address] [place] [address] Suad Cerda Health Maintenance Due Date Last Done Comments CT Colonography 1965 FIT DNA/Cologuard 1965 FIT 1965 FOBT 1965 Sigmoidoscopy 1965 Eye Exam 1974 Diabetes: Urine Protein Screening 02/01/2024 01/31/2023, 04/18/2021, 07/11/2020 COVID-19 Vaccine ( season) 2024 11/23/2021, 12/16/2020, 11/25/2020 Lipid Panel 10/09/2024 10/09/2023, 01/19, 04/18/2021, Additional history exists Influenza Vaccine (#1) 2025 , 07/11/2020, 08/18/2019, Additional history exists Dental Oral Exam 08/26/2025 02/22/2025, , 11/28/2020, Additional history exists Dental Prophylaxis 08/26/2025 02/22/2025, 0 05/12/2024, 09/02/2023, Additional history exists Diabetes: Hemoglobin A1C 09/16/2025 025, 02/17/2025, 09/28/2024, Additional history exists SDOH Screening 02/24/2026 02/24/2025 Dental X-Ray: Bitewings 04/03/2026 04/02/20, 02/22/2025, 09/24/2023, Additional history exists Alcohol/Substance Use Screening 06/16/2026 06/16/2025 Depression Screening 06/16/2026 06/16/2025, 06/16/20 Diabetes: Foot Exam 06/16/2026 06/16/2025, 06/16/2025, 06/16/2025, Additional history exists Disability Screening 06/16/2026 06/16/2025 Tobacco Screening 06/16/2026 06/16/2025 Cervical Cancer Screening 02/05/2027 HPV/Cotest 02/05/2027 Pap Smear 02/05/2027 02/06/2024 Mammogram 03/12/2027 03/12/2025, 01/19, 01/21/2024, Additional history exists Colonoscopy 03/14/2027 03/14/2017 Colorectal Cancer Screening 03/14/2027 Dental X-Ray: Full Mouth 02/24/2028 025, 12/14/2019, 01/05/2015 DTaP/Tdap/Td Vaccines (3 - Td or Tdap) 12/22/2033 12/23/2023, 01/04/2011 RSV Patients and Patients Aged 60 years or older (1 - 1-dose 75+ series) 2039 HIV Screening Completed 12/23/2023 Hepatitis C Screening [...] on patient's age to complete this topic Meningococcal B Vaccine Aged Out No l onger eligible based on patient's age to complete this topic RSV under 20 months Aged Out No longe r eligible based on patient's age to complete this topic Rotavirus Vaccines Aged Out No longer eligible based on patient's age to complete this topic Procedures Procedure Name Priority Date/Time Associated Diagnosis Comments POCT GLUCOSE Routine 06/16/2025 9:49 AM EDT Type 2 diabetes mellitus without complication, with long-term current use of insulin ([facility]) POCT GLYCATED HEMOGLOBIN, TOTAL Routine 06/16/2025 9:49 AM EDT Type 2 diabetes mellitus without complication, with long-term current use of insulin ([facility]) HP LINK DIABETIC FOOT EXAM Routine 06/16/2025 CASE PRESENTATION, DETAILED AND EXTENSIVE TREATMENT PLANNING Routine 05/18/2025 11:00 AM EDT 2 MO RESIN-BASED COMPOSITE - 2 SURF, POSTERIOR Routine 05/18/2025 11:00 AM EDT CASE PRESENTATION, DETAILED AND EXTENSIVE TREATMENT PLANNING Routine 04/02/2025 10:00 AM EDT BITEWING - SINGLE RADIOGRAPHIC IMAGE Routine 04/02/2025 10:00 AM EDT INTRAORAL - PERIAPICAL FIRST RADIOGRAPHIC IMAGE Routine 04/02/2025 10:00 AM EDT LIMITED ORAL EVALUATION - PROBLEM FOCUSED Routine 04/02/2025 10:00 AM EDT BI US BREAST LIMITED LEFT Routine 03/12/2025 9:04 AM EDT PROPHYLAXIS - ADULT Routine 02/22/2025 9 :00 AM EDT Dental calculus Dental plaque INTRAORAL - COMPLETE SERIES OF RADIOGRAPHIC IMAGES Routine 02/22/2025 9:00 AM EDT PERIODIC ORAL EVALUATION - ESTABLISHED PATIENT Routine 02/22/2025 9:00 AM EDT PAP SMEAR Routine 02/06/2024 4:00 PM EDT Cervical cancer screening HEPATITIS C AB W/REFL TO HCV RNA, QN, PCR Routine 12/23/2023 10:11 AM EST Encounter for health-related screening HIV 1/2 ANTIGEN/ANTIBODY, FOURTH GENERATION W/RFL Routine 12/23/2023 10:11 AM EST Encounter for health-related screening LIPID PANEL, STANDARD Routine 10/09/2023 8:08 AM EST Class 2 obesity ALBUMIN, RANDOM URINE W/O CREATININE Routine 01/31/2023 10:10 AM EDT Vague bodily discomfort HM COLONOSCOPY Routine 03/14/2017 from Last 3 Months or Most Recently Relevant to Health Maintenance Results * (ABNORMAL) POCT HGB A1C (06/16/2025 9:49 AM EDT) Hemoglobin A1C 7.1(A) 4.0 - 5.7 % QC Media Lot # [id number] Lot# Expiration Date 045,600 Blood 06/16/2025 9:49 AM EDT us Christa Topete MD POINT OF CARE TEST ENTER/EDIT ORDERABLES Final Result * POCT Glucose (06/16/2025 9:49 AM EDT) Glucose Blood, POC 111 60 - 200 mg/dL Blood Capillary blood specimen / Unknown 06/16/2025 9:49 AM EDT us Christa Topete MD POINT OF CARE TEST ENTER/EDIT ORDERABLES Final Result * HP Diabetic Foot Exam (06/16/2025) Narrative Christa Topete MD - 06/16/2025 Tinea pedis, dry skin, no ulcers us Christa Topete MD HEALTH MAINTENANCE Final Resu lt * BI US Breast Limited Left (03/12/2025 9:04 AM EDT) Anatomical Region Laterality Modality Breast Left Ultrasound 03/12/2025 9:04 AM EDT Narrative 03/12/2025 9:47 AM EDT [facility] [address] [place] [address] Ultrasound Report Signed Patient: Kristine Mata MR#: [id number] 8 : 1965 Acct:[id number] Age/Sex: 59 / F ADM Date: 03/12/25 Loc: HO.MAMMO Attending Dr: Christa Topete MD Ordering Physician: Christa Topete MD Date of Service: 03/12/25 Procedure(s): US breast LT limited mamm only Accession Number(s): [id number] cc: Christa Topete MD EXAMINATION: MM DIAGNOSTIC DIGITAL BREAST TOMOSYNTHESIS, LEFT Limited left breast ultrasound. CLINICAL INFORMATION: Call back from screening for focal asymmetry in the retroareolar region of the left breast. COMPARISON: Mammography: [facility] on PACS. TECHNIQUE: Digital breast tomosynthesis is performed in both the craniocaudal and mediolateral oblique views along with computer-aided detection (CAD). Synthesized 2D images are generated from the tomosynthesis. FINDINGS: There are scattered areas of fibroglandular density (ACR BI-RADS breast composition Category b). Focal asymmetry in the retroareolar region slightly upper central left breast middle depth persist on additional imaging projections. No suspicious calcifications or other abnormal findings. Targeted color Doppler ultrasound scanning in the retroareolar region and scanning from 10-2 o'clock demonstrates normal fibroglandular breast tissue. There is no sonographic abnormal findings. US/US breast LT limited mamm only IMPRESSION: Left: Focal asymmetry retroareolar region middle depth without sonographic correlate. Recommend six-month follow-up mammography for further evaluation of stability. ASSESSMENT: BI-RADS BI-RADS 3 - Probably benign finding(s) - 6 month follow-up suggested RECOMMENDATION: 6 Month F/U Results were provided to the patient at time of visit by the technologist. This patient's information was entered into a reminder system with a target due date for their next mammogram. Electronically signed by: Savita Jordan DO 03/12/2025 09:44 AM EDT RP Dictated By: Savita Jordan DO Signed By: <Electronically signed by Savita Jordan DO in OV> 03/12/2544 DD/ 3 TD/TT: 03/12/25921 Php Mysql Developer: Procedure Note Donotuseinterpreter, Image - 03/12/2025 [facility] [address] [place], [place] [address] Ultrasound Report Signed Patient: Shakira Mata#: [id number] 8 : 1965Acct:[id number] Age/Sex: 59 / FADM Date: 03/12/25 Loc: HO.MAMMO Attending Dr: Christa Topete MD Ordering Physician: Christa Topete MD Date of Service: 03/12/25 Procedure(s): US breast LT limited mamm only Accession Number(s): [id number] cc: Christa Topete MD EXAMINATION: MM DIAGNOSTIC DIGITAL BREAST TOMOSYNTHESIS, LEFT Limited left breast ultrasound. CLINICAL INFORMATION: Call back from screening for focal asymmetry in the retroareolar region of the left breast. COMPARISON: Mammography: [facility] on PACS. TECHNIQUE: Digital breast tomosynthesis is performed in both the craniocaudal and mediolateral oblique views along with computer-aided detection (CAD). Synthesized 2D images are generated from the tomosynthesis. FINDINGS: There are scattered areas of fibroglandular density (ACR BI-RADS breast composition Category b). Focal asymmetry in the retroareolar region slightly upper central left breast middle depth persist on additional imaging projections. No suspicious calcifications or other abnormal findings. Targeted color Doppler ultrasound scanning in the retroareolar region and scanning from 10-2 o'clock demonstrates normal fibroglandular breast tissue. There is no sonographic abnormal findings. US/US breast LT limited mamm only IMPRESSION: Left: Focal asymmetry retroareolar region middle depth without sonographic correlate. Recommend six-month follow-up mammography for further evaluation of stability. ASSESSMENT: BI-RADS BI-RADS 3 - Probably benign finding(s) - 6 month follow-up suggested RECOMMENDATION: 6 Month F/U Results were provided to the patient at time of visit by the technologist. This patient's information was entered into a reminder system with a target due date for their next mammogram. Electronically signed by: Savita Jordan DO 03/12/2025 09:44 AM EDT Dictated By: Savita Jordan DO Signed By: <Electronically signed by Savita Jordan DO in OV> 03/12/25943 DD/ 3 TD/TT: 03/12/25921 Php Mysql Developer: us Christa Topete MD IMG US PROCEDURES Final Resul t * Pap Smear (02/06/2024 4:00 PM EDT) Swab 02/06/2024 4:00 PM EDT 02/10/2024 11:30 AM EDT [facility] - 02/25/2024 12:30 PM EDT ----- ------- Name: Kristine Mata Age/Sex: 58/F : 1965 Unit#: [id number] Attend Dr: Christa Topete MD Re02/06/24 Status: DEP [facility]: ----- ------- SPEC : [id number] RECD: 02/10/24 STATUS: GLORIA MOTTA NUM: [id number] PEÑA: 02/06/24-[address]: Christa Topete MD ENTERED: 02/10/24140 SP TYPE: Pap Smr OTHR DR: ORDERED: Pap Smear Interpretation Satisfactory for evaluation. Negative for intraepithelial lesion or malignancy. Clinical Information LMP: Postmenopausal Previous PAP test: Unknown date/findings Material Received ThinPrep-Vaginal/Cervical ----- ------- Signed (signature on file) NIKI Preciado ([facility]) 02/25/24 1230 ----- ------- END OF REPORT us Christa Topete MD LAB CYTOLOGY ORDERABLES Final Result [facility] [address] [place] [phone] * Hepatitis C Antibody with Reflex to HCV, RNA, Quantitative, Real-Time PCR (12/23/2023 10:11 AM EST) Hepatitis C Antibody Nonreactive Nonreactive [facility] Comment:Antibodies to HCV no t detected; does not exclude early acuteHCV infection. Blood Venous blood specimen / Unknown 12/23/2023 10:11 AM EST 12/23/2023 2:26 PM EST Christa Topete MD LAB BLOOD ORDERABLES Final Re sult Performing Organization Address City/[facility]/ZIP Co de Phone Number [facility] [address] [place] [phone] * HIV-1/2 Antigen and Antibodies, Fourth Generation, with Reflexes (12/23/2023 10:11 AM EST) Pathologist [facility] HIV AB/AG Nonreactive Nonreactive [facility] Comment:HIV-1 p24 Ag and/or HIV-1/HIV-2 Ab not detected.A test result that is nonreactive does not exclude thepossibility of exposure to or infection with HIV-1 and/orHIV-2. Nonreactive results in this assay for individualswith prior exposure to HIV-1 and/or HIV-2 may be due toantigen and antibody levels that are below the limit ofdetection of this assay.The [employer] HIV Ag/Ab Combo assay result andsupplemental assay results should be interpreted inconjunction with the patient's clinical presentation,history and other laboratory results. If the results areinconsistent with clinical evidence, additional testing issuggested to confirm the result. Blood Venous blood specimen / Unknown 12/23/2023 10:11 AM EST 12/23/2023 2:26 PM EST us Christa Topete MD LAB BLOOD ORDERABLES Final Re sult Performing Organization Address City/[facility]/ZIP Co de Phone Number [facility] [address] [place] [address] [phone] * Lipid Panel, Standard (10/09/2023 8:08 AM EST) Pathologist [facility] Triglycerides 89 <150 mg/dL [facility] Comment:Desirable Triglyceri de: less than 150 mg/dLBorderline High Triglyceride 150-199 mg/dLHigh Triglyceride: 200-499 mg/dLVery High Triglyceride: greater than or equal to 5OO mg/dL Cholesterol 160 <200 mg/dL [facility] Comment:Desirable Cholestero l: less than 200 mg/dLBorderline High Cholesterol: 200-239 mg/dLHigh Cholesterol: greater than 239 mg/dL LDL Cholesterol Calculated 87 <100 mg/dL [facility] Comment:Desirable LDL: less than 100 mg/dLNear Optimal/Above Optimal LDL: 110- 129 mg/dLBorderline High LDL: 130-159 mg/dLHigh LDL: 160-189 mg/dLVery High LDL: greater than or equal to 190 mg/dL HDL Cholesterol 56 >40 mg/dL [facility] Comment:Desirable HDL: great er than 40 mg/dL Note: This HDL assay may give artificially low results in patients with liver disease. Blood Venous blood specimen / Unknown 10/09/2023 8:08 AM EST 10/09/2023 11:12 AM EST us Christa Topete MD LAB BLOOD ORDERABLES Final Re sult [facility] [address] [place] [phone] * Albumin, Random Urine W/O Creatinine (01/31/2023 10:10 AM EDT) Albumin, Urine 0.4 See Note: mg/dL [facility] Comment: Reference Range: Reference Range Not established [facility] [place] [facility] [employer] Comment: The ADA defines abnormalities in albumin excretion as follows: Albuminuria Category Result (mcg/mg creatinine) Normal to Mildly increased <30 Moderately increased 30-299 Severely increased > OR = 300 The ADA recommends that at least two of three specimens collected within a 3-6 month period be abnormal before considering a patient to be within a diagnostic category. Urine Urine specimen obtained by clean catch procedure / Unknown 01/31/2023 10:10 AM EDT 01/31/2023 10:11 AM EDT Narrative [facility] - 02/01/2023 7:35 PM EDT FASTING:NO FASTING: NO Christa Topete MD LAB URINE ORDERABLES Final Re sult [facility] [address], [place] [address] [facility] [address] [place] [address] * Hm Colonoscopy (03/14/2017) Colonoscopy Normal Normal Narrative Cydney Gottlieb - 03/14/2017 Recommended 10 year follow up us Historical Provider HEALTH MAINTENANCE Final Result from Last 3 Months or Most Recently Relevant to Health Maintenance Insurance [facility] NAVIG[facility] STAND ADULT Care Teams Mason Tender Relationship Specialty Start Date End Date Christa Topete MD [address] [place] [phone] PCP - General Family Medicine 09/13/21
--- OUTSIDE RECORDS SUMMARY | 2025-06-17 12:16 | XMS_ITS | Encounter Summary ---
Author Organization [employer] Address [address] [facility] 7[address] [place] [address] Care Team Providers Care Experimental Technician Name Role Phone Christa Topete MD Primary Care Provider [phone] Encounter Details Date Type Department Care Team (Late st Contact Info) Description 12/04/2022 Orders Only [facility] [address] [place] [address] Yenni Cardenas LPN Social History Tobacco Use [...] Description 08/30/2025 8:00 AM EST Office Visit [facility] ADULT DENTAL [address] [place] [address] Suad Cerda documented as of this encounter Visit Diagnoses Not on filedocumented in this encounter Care Teams Experimental Technician Relationship Specialty Start Date End Date Christa Topete MD [address] [place] [address] PCP - General Family Medicine 09/13/21 documented as of this encounter
--- OUTSIDE RECORDS SUMMARY | 2025-06-17 12:16 | XMS_ITS | Encounter Summary ---
Author Organization [employer] Address [address] [facility] [address] [place] [address] Care Team Providers Care Layout Former Name Role Phone Christa Topete MD Primary Care Provider [phone] Encounter Details Date Type Department Care Team (Latest Contact Info) Description 11/09/2021 Abstract [facility] CONVERSIONS Dental, Provider, DDS Social [...] Description 08/30/2025 8:00 AM EST Office Visit [facility] ADULT DENTAL [address] [place] [address] Suad Cerda documented as of this encounter Visit Diagnoses Not on filedocumented in this encounter Care Teams Layout Former Relationship Specialty Start Date End Date Christa Topete MD [address] [place] [address] PCP - General Family Medicine 09/13/21 documented as of this encounter
[2025-06-17 14:52] LABS: MANUAL DIFF FLAG NO
[2025-06-17 15:02] LABS: Hematocrit 41.0 % (37.0-47.0); Hemoglobin 14.0 g/dl (12.0-16.0); Imm Gran Abs Auto 0.04 X10*3/uL (0.00-0.03); Imm Gran Pct Auto 0.4 % (0.0-0.4); Lymphocytes Absolute Auto 3.8 X10*3/uL (1.2-4.9); Mean Corpuscular HGB Conc 34.1 g/dl (31.0-35.0); Mean Corpuscular Hemoglobin 28.7 pg (27.0-33.0); Mean Corpuscular Volume 84.0 fL (80.0-98.0); NRBC Abs Auto 0.000 X10*3/uL (0.0-0.012); NRBC Pct Auto 0.0 /100WBC (0.0-0.2); Platelet Count 171 X10*3/uL (160-400); Red Blood Count 4.88 X10*6/uL (4.20-5.50); White Blood Count 10.3 X10*3/uL (4.8-10.8)
[2025-06-17 15:58] LABS: Alanine Aminotransferase 15 U/L (0-31); Albumin Level 4.3 g/dL (3.5-5.0); Alkaline Phosphatase 72 U/L (39-117); Anion Gap 13 (12-20); Aspartate Amino Transferase 23 U/L (5-31); Blood Urea Nitrogen 12 mg/dL (9-16); Calcium 9.6 mg/dL (8.4-10.2); Carbon Dioxide 26 mmol/L (22-29); Chloride 104 mmol/L (96-108); Cholesterol 170 mg/dL (<200); Estimated Glomerular Filt Rate > 60; HDL Cholesterol 50 mg/dL (>40); Potassium 4.3 mmol/L (3.3-5.1); Sodium 139 mmol/L (135-145); Total Protein 7.2 g/dL (6.5-8.0); Triglycerides 113 mg/dL (<150)
== END 2025-06-17 10:48 | disposition home or self-care (01) ==
LOC: HO.CHCLDS 10:47
PROVIDERS: Visit Provider Family Medicine
DX: E11.9 Type 2 diabetes mellitus without complications (principal); E66.811 Obesity, class 1; Z79.4 Long term (current) use of insulin
CPT/HCPCS: 36415; 80053; 80061; 82306; 82985; 84443; 85025

== ENCOUNTER 2025-09-03 15:55 | Outpatient (REF) | payer OTHER, SELFPAY ==
[2025-09-03 18:53] LABS: Microalbum/Creatinine Ratio Ur 10.5 ug/mg cr (<30)
== END 2025-09-03 15:56 | disposition home or self-care (01) ==
LOC: HO.CHCLNP 15:55
PROVIDERS: Visit Provider Family Medicine
DX: Z23 Encounter for immunization (principal)
CPT/HCPCS: 82043; 82570

== ENCOUNTER 2025-09-14 07:42 | Outpatient (REF) | payer OTHER, SELFPAY ==
--- NOTE | ~2025-09-14 | MM_ITS ---
EXAMINATION(S): MM DIAGNOSTIC DIGITAL BREAST TOMOSYNTHESIS, LEFT CLINICAL INFORMATION: This is a 6-month follow-up of left breast focal asymmetry in the retroareolar region middle depth. No sonographic correlate identified. COMPARISON: Comparison made to multiple prior, most recent left diagnostic mammogram on March 12, 2025, and most remote January 11, 2022. TECHNIQUE: Digital breast tomosynthesis is performed in MLO, CC and XCCL along with computer-aided detection (CAD). Synthesized 2D images are generated from the tomosynthesis. FINDINGS: BREAST COMPOSITION: There are scattered areas of fibroglandular density. LEFT BREAST: Approximately 0.5 cm focal asymmetry in the central breast retroareolar plane at about 5.5 cm from the nipple (MLO , CC ) is unchanged from when described in January 2025. No new masses, suspicious calcifications or other abnormalities are seen. MM/MM tomosynthesis diagnostic LT IMPRESSION: LEFT BREAST: 0.5 cm focal asymmetry in the central breast retroareolar plane at 5.5 cm from the nipple, unchanged from January 2025. Probably benign. A short-term follow-up is recommended as bilateral diagnostic mammogram expected in January 2026. ASSESSMENT: BI-RADS: Category 3: Probably benign RECOMMENDATION: 6 Month F/U Results were provided to the patient at time of visit by the technologist. This patient's information was entered into a reminder system with a target due date for their next mammogram. Electronically signed by: Baldev Arroyo MD 09/14/2025 08:11 AM [facility]
--- OUTSIDE RECORDS SUMMARY | 2025-09-14 07:45 | XMS_ITS | Encounter Summary ---
Author Organization [employer] Address [address] [facility] 7t [place] [address] Care Team Providers Care Welding Foreman Name Role Phone Christa Topete MD Primary Care Provider [phone] Reason for Visit * Reason Comments Med Refill Encounter Details Date Type Department Care Team ([facility] st Contact Info) Description 10/15/2024 Refill [facility] MED & PEDS [address] [place], [place] [phone] Christa Topete MD [address] [place] [address] Social History Tobacco Use Types Packs/Day Years [...] Care Team (Late st Contact Info) Description 09/29/2025 11:30 AM EST Office Visit [facility] PEDS [address] [place] [address] Christa Topete MD [address] [place] [address] 11/02/2025 8:45 AM EST Office Visit [facility] ADULT DENTAL [address] [place] [address] Suad Cerda documented as of this encounter Visit Diagnoses Not on filedocumented in this encounter Additional Health Concerns Assessment Noted Time PHQ-9 Depression Total Score: 3 09/28/20 24 10:48 AM EST documented as of this encounter Care Teams Welding Foreman Relationship Specialty Start Date End Date Christa Topete MD [address] [place] [address] PCP - General Family Medicine 09/13/21 documented as of this encounter
--- OUTSIDE RECORDS SUMMARY | 2025-09-14 07:45 | XMS_ITS | Encounter Summary ---
Author Organization [employer] Address [address] [facility] 7[address] [place] [address] Care Team Providers Care Measurement Technician Name Role Phone Christa Topete MD Primary Care Provider [phone] Reason for Visit * Reason Comments Med Change Request Encounter Details Date Type Department Care Team ([facility] st Contact Info) Description 02/10/2024 Refill [facility] MED & PEDS [address] [place], [place] [phone] Christa Topete MD [address] [place] [address] Social History Tobacco Use Types Packs/Day Years [...] Description 09/29/2025 11:30 AM EST Office Visit [facility] MED & PEDS [address] [place], [place] [phone] Chrisat Topete MD [address] [place] [address] 11/02/2025 8:45 AM EST Office Visit [facility] ADULT DENTAL [address] [place] [address] Suad Cerda documented as of this encounter Visit Diagnoses Not on filedocumented in this encounter Additional Health Concerns Assessment Noted Time PHQ-9 Depression Total Score: 8 02/01/20 23 9:11 AM EDT documented as of this encounter Care Teams Measurement Technician Relationship Specialty Start Date End Date Christa Topete MD [address] [place] [address] PCP - General Family Medicine 09/13/21 documented as of this encounter
--- OUTSIDE RECORDS SUMMARY | 2025-09-14 07:45 | XMS_ITS | Clinical Summary ---
Author Organization [employer] Address [address] [facility] [address] [place] [address] Care Team Providers Care Contract Preparer Name Role Phone Christa Topete MD Primary Care Provider [phone] Allergies Active Allergy Reactions Criticality Noted Date Comments Metformin Diarrhea 04/01/2023 Medications glucose blood (FREESTYLE LITE) test strip Use 1 by To Skin route 4 times every day 021 Active gabapentin (Neurontin) 600 MG tablet Take 600 mg by mouth at bedtime. 024 Active Magnesium Oxide, Laxative, 500 MG tablet Take 500 mg by mouth Once per day. Active propranolol (Inderal) 10 MG tablet TAKE 1 TABLET BY MOUTH EVERY DAY 90 tablet 024 Active Blood Pressure kit 1 kit 2 times daily. 1 kit 025 2025 Active lisinopril 5 MG tablet TAKE 1 TABLET BY MOUTH EVERY MORNING 90 tablet 3 09/06/20 25 10:31 AM EST 025 Active B-D ULTRAFINE III SHORT PEN 31G X 8 MM misc USE DIRECTED DAILY WITH INSULIN 100 each 11 09/06/20 25 10:31 AM EST 025 Active Diclofenac Sodium (Voltaren) 1 % gel Use topical BID 100 g 3 025 Active Lyumjev KwikPen 100 UNIT/ML pen 025 Active FreeStyle lancets 025 Active ammonium lactate (Amlactin) 12 % cream APPLY TO THE AFFECTED AREA(S) TOPICALLY DAILY NEEDED DRY SKIN 140 g 5 09/07/20 25 11:13 AM EST 025 Active chlorhexidine (Peridex) 0.12 % solution Use 15ml twice daily to rinse your mouth. Spit, do not swallow. 473 mL Active TRUEplus Lancets 33G miscIndications: Type 2 diabetes mellitus without complications ([facility]) USE TID 100 each 11 Active glucose blood (FREESTYLE LITE) test stripIndications :Type 2 diabetes mellitus with hyperglycemia, with long-term current use of insulin ([facility]) USE TID 100 strip 11 Active cholecalciferol (D3 Super Strength) 50 MCG (1999 UT) capsule Take 1 capsule (50 mcg) by mouth in the morning. 120 capsule 1 Active pravastatin (Pravachol) 80 MG tablet Take 1 tablet (80 mg) by mouth at bedtime. 90 tablet 1 Active glucose blood (FREESTYLE LITE) test stripIndications :Type 2 diabetes mellitus without complications ([facility]) Use TID 100 strip 11 Active meloxicam (Mobic) 15 MG tabletIndication s:Chronic right shoulder pain Take 1 tablet (15 mg) by mouth Once per day. 90 tablet 1 Active Continuous Glucose Sensor (FreeStyle John 3 Plus Sensor) [facility] Freestyle John 3 PLUS Sensor, See Instructions, # 2 each, Refills 11, Tot. Refills 11, Maintenance, Use to continuously monitor BG and change sensor every 15 days E11.9, 04/29/25 9:35:00 AM EDT, Supply, 158, cm, 04/29/25 8:36:00 EDT, Height Active Embecta Pen Needle Ultrafine 31G X 5 MM [facility] Active terbinafine (LamISIL AT) 1 % cream Apply topically 2 times daily. 90 g Active Blood Glucose Monitoring Suppl (FreeStyle Norvell Lite) w/Device kitIndications:T ype 2 diabetes mellitus without complication, with long-term current use of insulin ([facility]) TEST BLOOD SUGAR FOUR TIMES DAILY 1 kit Active glucagon (Baqsimi One Pack) 3 MG/DOSE nasal powderIndication s:Type 2 diabetes mellitus without complication, with long-term current use of insulin ([facility]) Administer 3 mg into affected nostril(s) 1 (one) time if needed for low blood sugar for up to 1 dose. 1 each 2 Active Lantus SoloStar 100 UNIT/ML penIndications:T ype 2 diabetes mellitus without complication, with long-term current use of insulin ([facility]) Inject 56 Units under the skin at bedtime. 16.8 mL 11 2025 Active Mounjaro 15 MG/0.5ML solution auto-injectorInd ications:Type 2 diabetes mellitus without complication, with long-term current use of insulin ([facility]) Inject 15 mg under the skin 1 (one) time per week. 2 mL Active aspirin (Aspirin Low Dose) 81 MG EC tabletIndication s:Type 2 diabetes mellitus without complication, with long-term current use of insulin ([facility]) Take 1 tablet (81 mg) by mouth at bedtime. 90 tablet 1 Active Alcohol Swabs (Alcohol Prep) 70 % padsIndications: Type 2 diabetes mellitus without complication, with long-term current use of insulin ([facility]),Type 2 diabetes mellitus without complications ([facility]) Use as directed to inject insulin and test blood sugar. Max 5 per day. 500 each 4 Active loperamide (Imodium) 2 MG capsule TAKE 2 CAPSULES BY MOUTH ONCE AFTER 1ST LOOSE STOOL THEN TAKE 1 CAPSULE BY MOUTH AFTER EACH LOOSE STOOL DIRECTED. NO MORE THAN 8 CAPSULES PER DAY 180 capsule 3 Active ibuprofen 600 MG tabletIndication s:Cervical radiculopathy Take 1 tablet (600 mg) by mouth 3 times daily. 90 tablet 2024 Active acetaminophen (Tylenol Extra Strength) 500 MG tabletIndication s:Cervical radiculopathy Take 1 tablet (500 mg) by mouth every 8 (eight) hours if needed for mild pain. 60 tablet Active cyclobenzaprine (Flexeril) 10 MG tabletIndication s:Cervical radiculopathy Take 1 tablet (10 mg) by mouth at bedtime for 20 days. 20 tablet Active aspirin-acetamin ophen-caffeine (Excedrin Migraine) 250-250-65 MG tablet Take 1 tablet by mouth every 6 (six) hours if needed for headaches. 90 tablet Active butalbital-aceta minophen-caffein e 50-325-40 MG tabletIndication s:Other migraine without status migrainosus, not intractable Take 1 tablet by mouth every 6 (six) hours if needed for headaches. TAKE 1 OR 2 TABLETS BY MOUTH EVERY 4 HOURS NEEDED. NO MORE THAN 6 TABLETS IN 24 HOURS 20 tablet Active Multiple Vitamin (Multivitamin) tablet TAKE 1 TABLET BY MOUTH EVERY MORNING 90 tablet 1 Active Blood Glucose Monitoring Suppl (Liquidations Enchere Limitede) w/Device kit TEST BLOOD SUGAR FOUR TIMES DAILY 022 2024 Discontinued(R eorder (will not trigger notification to Pharmacy)) butalbital-aceta minophen-caffein e 50-325-40 MG tabletIndication s:Other migraine without status migrainosus, not intractable TAKE 1 OR 2 TABLETS BY MOUTH EVERY 4 HOURS NEEDED. NO MORE THAN 6 TABLETS IN 24 HOURS 20 tablet 023 2024 Discontinued(R eorder (will not trigger notification to Pharmacy)) acetaminophen (Tylenol Extra Strength) 500 MG tablet Take 1 tablet (500 mg) by mouth every 8 (eight) hours if needed for mild pain. 60 tablet 2024 Discontinued(R eorder (will not trigger notification to Pharmacy)) Mounjaro 15 MG/0.5ML solution auto-injector 2024 Discontinued(R eorder (will not trigger notification to Pharmacy)) cyclobenzaprine (Flexeril) 10 MG tablet Take 1 tablet (10 mg) by mouth at bedtime for 20 days. 20 tablet 2024 Discontinued(R eorder (will not trigger notification to Pharmacy)) Lantus SoloStar 100 UNIT/ML pen Inject 56 Units under the skin at bedtime. 18 mL 2 025 2024 Discontinued(R eorder (will not trigger notification to Pharmacy)) Multiple Vitamin (Multivitamin) tablet TAKE ONE TABLET EVERY DAY 90 tablet 1 025 2024 Discontinued Alcohol Swabs (Alcohol Prep) 70 % padsIndications: Type 2 diabetes mellitus without complications (HCC) USE DIRECTED TO INJECT INSULIN AND TEST BLOOD SUGAR. MAX 5 PER DAY 500 each 4 025 2024 Discontinued(R eorder (will not trigger notification to Pharmacy)) loperamide (Imodium) 2 MG capsule TAKE 2 CAPSULES BY MOUTH ONCE AFTER 1ST LOOSE STOOL THEN TAKE 1 CAPSULE BY MOUTH AFTER EACH LOOSE STOOL DIRECTED. NO MORE THAN 8 CAPSULES PER DAY 180 capsule 3 2024 Discontinued(R eorder (will not trigger notification to Pharmacy)) aspirin (Aspirin Low Dose) 81 MG EC tablet Take 1 tablet (81 mg) by mouth at bedtime. 90 tablet 1 2024 Discontinued(R eorder (will not trigger notification to Pharmacy)) glucagon (Baqsimi One Pack) 3 MG/DOSE nasal powder See Instructions, 3 mg Once In one nostril; dose does not need to be inhaled may repeat in 15 minutes, # 2 each, 2 Refills, Maintenance, 02/02/25 12:07:00 PM EDT, [facility], Partial fill upon patient request if the prescription is for a schedule II opioid drug., 158, cm, 02/02/25 8:15:00 EDT, Height 2024 Discontinued(R eorder (will not trigger notification [...] symptoms. F/u in 8 weeks. Relevant Medications Wjskmai-Gnzhtxltywfdc-Ucdiapga ( Excedrin Migraine) 250-250-65 MG tablet Cyclobenzaprine [...] recommended reduction of 20-30% of maintenance calories; technical support analyst referral offered. Recommended to decrease soda and [...] on sliding scale - Continue follow-up with tsa screener - Educate on dietary choices: focus on protein (e.g., eggs, tofu), avoid high- sugar foods (e.g., croissants, prunes) - Order cholesterol and kidney function tests - Follow up in a couple of months Assessment & Plan (09/28/2024 11:32 AM EST): GMI 7.3%. TIR 65%. TAR 35%. Continue to follow up with Machine Spreader. Assessment & Plan (05/25/2024 11:28 AM EDT): [...] implementation of diet modifications. Offer referral to technical support analyst, patient denied. Will restart glipizide at 10 mg. Will follow up in 3 months. ppt with tsa screener scheduled for 04/15/23. 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 Will lower lantus from 55 units to 51 units and start on Januvia 100mg. Will also hold metformin for x2 weeks due to chronic diarrhea and follow up in 2-3 weeks. Assessment & Plan (02/11/2023 11:39 AM EDT): Patient with elevated fasting glucose at time of visit with a reading of 325 mg/dL. Advised to fruit picker sensor and consistently monitor levls at home. Instructed to hold metformin and will follow up in 2 weeks to assess. Encounters Date Type Department Care Team Description 09/07/2025 Refill [facility] [address] [place] [phone] Christa Topete MD 09/03/2025 3:15 PM EST Office Visit [facility] [address] [place] [phone] Christa Topete MD New persistent daily headache (Primary Dx); Encounter for immunization; Dietary counseling; Exercise counseling; Class 2 severe obesity with serious comorbidity and body mass index (BMI) of 35.0 to 35.9 in adult, unspecified obesity type; Other migraine without status migrainosus, not intractable 09/03/2025 Travel 08/20/2025 11:15 AM EDT Office Visit [facility] [address] [place] [address] Clark, Perla, [employer] Chest pain, unspecified type (Primary Dx); Type 2 diabetes mellitus without complication, with long-term current use of insulin (HCC); Type 2 diabetes mellitus without complications (HCC); Cervical radiculopathy 08/20/2025 Travel 08/18/2025 Patient Outreach [facility] [address] [place] [address] Christa Topete MD Care Coordination (C3/DENNISW Benito Lafleur- Care Coordination) 08/16/2025 Telephone [facility] [address] [place] [address] Christa Topete MD Nurse Triage 06/23/2025 Results Follow-Up [facility] [address] [place] [address] Christa Topete MD CBC auto differential, Comprehensive Metabolic Panel, Lipid Panel, Standard, Additional followed-up results: 2 06/17/2025 Telephone [facility] [address] [place] [address] Christa Topete MD 06/16/2025 9:45 AM EDT Office Visit [facility] [address] [place] [address] Christa Topete MD Class 1 obesity (Primary Dx); Type 2 diabetes mellitus without complication, with long-term current use of insulin ([facility]); Chronic right shoulder pain; Tinea pedis of both feet; Swelling of both lower extremities 06/16/2025 Travel 06/15/2025 Telephone [facility] [address] [place] [address] Christa Topete MD chart prep from Last 3 Months Immunizations Immunization Administration Dates Next Due Influenza injectable quadriv alent IIV4 with preservative 07/10/2018,07/08/2017,08/06/2016 Influenza injectable quadriv alent preservative free 09/27/2021,07/11/2020,08/18/2019 Influenza, IIV3, injectable 07/16/2014, 0 Influenza, Split (incl. kinsey fied surface antigen) 06/23/2013 Influenza, seasonal, injecta ble, preservative free 09/03/2025 Meningococcal Polysaccharide A,C,Y,W-135 TT Conjugate 02/04/2024 Pneumococcal [...] Sign Reading Time Taken Comments Blood Pressure 123/78 09/03/2025 3:15 PM EST Pulse 76 09/03/2025 3:15 PM EST Temperature 36.3 C (97.4 F) 09/03/2025 3:15 PM EST Respiratory Rate 20 09/03/2025 3:15 PM EST Oxygen Saturation 98% 09/03/2025 3:15 PM EST Inhaled Oxygen Concentration - - Weight 87.7 kg (193 lb 6.4 oz) 09/03/2025 3:15 P M EST Height 158 cm (5' 2.21 ) 09/03/2025 3:15 PM EST Body Mass Index 35.14 09/03/2025 3:15 PM EST Plan of Treatment Upcoming Encounters Date Type Department Care Team (Late st Contact Info) Description 09/29/2025 11:30 AM EST Office Visit [facility] [address] [place] [address] Christa Topete MD [address] [place] [address] 11/02/2025 8:45 AM EST Office Visit [facility] [address] [place] [address] Suad Cerda Health Maintenance Due Date Last Done Comments CT Colonography 1964 FIT DNA/Cologuard 1964 FIT 1964 FOBT 1964 Sigmoidoscopy 1964 Eye Exam 1974 COVID-19 Vaccine ( season) 2025 11/23/2021, 12/16/2020, 11/25/2020 Dental Oral Exam 08/26/2025 02/22/2025, , 11/28/2020, Additional history exists Dental Prophylaxis 08/26/2025 02/22/2025, 0 05/12/2024, 09/02/2023, Additional history exists Diabetes: Hemoglobin A1C 09/17/2025 025, 06/16/2025, 02/17/2025, Additional history exists RSV Patients and Patients Aged 60 years or older (1 - Risk 50-74 years 1-dose series) 02/24/2026 Postponed from 2014 (Patient Refused) SDOH Screening 02/24/2026 02/24/2025 Dental X-Ray: Bitewings 04/03/2026 04/02/20 25, 02/22/2025, 09/24/2023, Additional history exists Alcohol/Substance Use Screening 06/16/2026 06/16/2025 Depression Screening 06/16/2026 06/16/2025, 06/16/20 Diabetes: Foot Exam 06/16/2026 06/16/2025, 06/16/2025, 06/16/2025, Additional history exists Disability Screening 06/16/2026 06/16/2025 Lipid Panel 06/17/2026 06/17/2025, 09/21, 01/31/2023, Additional history exists Diabetes: Urine Protein Screening 09/03/2026 09/03/2025, 02/02/2025, 09/10/2023, Additional history exists Tobacco Screening 09/03/2026 09/03/2025 Cervical Cancer Screening 02/05/2027 HPV/Cotest 02/05/2027 Pap Smear 02/05/2027 02/06/2024 Mammogram 03/12/2027 03/12/2025, 02/19, 01/28/2025, Additional history exists Colonoscopy 03/14/2027 03/14/2017 Colorectal [...] this topic Zoster Vaccines Completed 05/05/2024, 12/27/2023 Influenza Vaccine Completed 09/03/2025, , 07/11/2020, Additional history exists HIB Vaccines Aged Out No longer eligi [...] on patient's age to complete this topic Goals Goal Patient Goal Type Associated Problems Recent Progress Patient-Stated? Author Help patients manage their type 2 diabetes Care Plan Help patients manage their type 2 diabetes No Yuval Polo MA Weekly blood pressure task Care Plan Weekly blood pressure task No Yuval Polo MA Help patients manage their type 2 diabetes Care Plan Help patients manage their type 2 diabetes No Yuval Polo MA Patient has chronic kidney disease Care Plan Patient has chronic kidney disease No Yuval Polo MA Weekly blood pressure task Care Plan Weekly blood pressure task No Yuval Polo MA Patient has chronic kidney disease Care Plan Patient has chronic kidney disease No Yuval Polo MA Weekly blood pressure task Care Plan Weekly blood pressure task No Colon, Aaliyah Weekly blood pressure task Care Plan Weekly blood pressure task No Colon, Aaliyah Patient has chronic kidney disease Care Plan Patient has chronic kidney disease No Colon, Aaliyah Patient has chronic kidney disease Care Plan Patient has chronic kidney disease No Colon, Aaliyah Procedures Procedure Name Priority Date/Time Associated Diagnosis Comments ALBUMIN, RANDOM URINE W/CREATININE Routine 09/03/2025 3:30 PM EST Encounter for immunization ECG 12-LEAD Routine 08/20/2025 11:12 AM EDT Chest pain, unspecified type POCT GLUCOSE Routine 08/20/2025 10:26 AM EDT Type 2 diabetes mellitus without complication, with long-term current use of insulin ([facility]) VITAMIN D,25-OH,TOTAL,IA Routine 06/17/2025 10:48 AM EDT Class 1 obesity FRUCTOSAMINE Routine 06/17/2025 10:48 AM EDT Type 2 diabetes mellitus without complication, with long-term current use of insulin (CMS/HCC) TSH W/REFLEX TO FT4 Routine 06/17/2025 1 0:48 AM EDT Type 2 diabetes mellitus without complication, with long-term current use of insulin (CMS/HCC) LIPID PANEL, STANDARD Routine 06/17/2025 10:48 AM EDT Type 2 diabetes mellitus without complication, with long-term current use of insulin (CMS/HCC) COMPREHENSIVE METABOLIC PANEL Routine 06/17/2025 10:48 AM EDT Type 2 diabetes mellitus without complication, with long-term current use of insulin (CMS/HCC) CBC WITH AUTO DIFFERENTIAL Routine 06/17/2025 10:48 AM EDT Type 2 diabetes mellitus without complication, with long-term current use of insulin (CMS/HCC) POCT GLUCOSE Routine 06/16/2025 9:49 AM EDT Type 2 diabetes mellitus without complication, with long-term current use of insulin (CMS/HCC) POCT GLYCATED HEMOGLOBIN, TOTAL Routine 06/16/2025 9:49 AM EDT Type 2 diabetes mellitus without complication, with long-term current use of insulin (CMS/HCC) HP LINK DIABETIC FOOT EXAM Routine 06/16/2025 BITEWING - SINGLE RADIOGRAPHIC IMAGE Routine 04/02/2025 10:00 AM EDT BI US [...] 10:11 AM EST Encounter for health-related screening HM COLONOSCOPY Routine 03/14/2017 from Last 3 Months or Most Recently Relevant to Health Maintenance Results * Albumin, Random Urine W/Creatinine (09/03/2025 3:30 PM EST) Creatinine, Urine 66.11 mg/dL [facility] Microalbumin Urine 7.0 mg/L [facility] Microalbum Creatinine Ratio Ur 10.5 <30 ug/mg cr [facility] Comment:Albumin/Creatinine R atio Reference Ranges: Normal: < 30 ug/mg creatinine Microalbuminuria: 30 - 300 ug/mg creatinineClinical Albuminuria: > 300 ug/mg creatinine Urine (Urine, Random) 09/03/2025 3:30 PM EST 09/03/2025 6:10 PM EST Christa Topete MD LAB URINE ORDERABLES Final Re sult [facility] [address] [place] [phone] * ECG 12 lead (08/20/2025 11:12 AM EDT) Narrative Perla Clark CNP - 08/20/2025 11:12 AM EDT NSR, rate 69 bpm, no ST segmental changes, no acute ischemia. Cosigned: Clarissa Kelly MD Perla Clark CNP ECG ORDERABLES Final Res ult * POCT Glucose (08/20/2025 10:26 AM EDT) Only the most recent of2 resultswithin the time period is included. Pathologist [facility] Glucose Blood, POC 104 60 - 200 mg/dL QC Media Lot # [id number] Lot# Expiration Date Blood Capillary blood specimen / Unknown 08/20/2025 10:26 AM EDT Perla Clark CNP POINT OF CARE TEST ENTER/ EDIT ORDERABLES Final Result * Vitamin D, 25-Hydroxy, Total, Immunoassay (06/17/2025 10:48 AM EDT) Pathologist [facility] Vitamin D 25-OH Total 67.7 >30 ng/mL [facility] Comment: Health Based Reference Values*< 20 ng/mL Mhycttbbf19-17 ng/mL Insufficient> 30 ng/mL Sufficient*Karley RIBEIRO. N Engl J Med. 2007;[id number]:[id number] is no well-established upper level of normal vitamin Dlevels. Some laboratories use 50 ng/mL as an upper limit ofnormal. However, toxicity is patient-dependent and may occurat any level. Careful correlation with the patient'spresentation is necessary and, if there is concern forvitamin D toxicity, treatment should be consideredirrespective of the serum level.Care must be taken in interpreting Vitamin D results fromdifferent laboratories and methodologies. Published datademonstrated that results from patients undergoinghemodialysis may show a negative bias when tested withvarious automated 25-OH vitamin D assays when compared toLC-MS/MS.When testing samples from patients whose predominant form ofVitamin D is Vitamin D2, such as patients receiving VitaminD2 supplementation, results that are subtherapeutic shouldbe confirmed with another method such as LC-MS/MS. Blood Venous blood specimen / Unknown 06/17/2025 10:48 AM EDT 06/17/2025 2:41 PM EDT Christa Topete MD LAB BLOOD ORDERABLES Final Re sult Performing Organization Address City/[facility]/ZIP Co de Phone Number [facility] [address] [place] [phone] * TSH W/Reflex to FT4 (06/17/2025 10:48 AM EDT) TSH reflex Free T4 0.48 0.32 - 4.0 uIU/mL [facility] Blood Venous blood specimen / Unknown 06/17/2025 10:48 AM EDT 06/17/2025 2:41 PM EDT Christa Topete MD LAB BLOOD ORDERABLES Final Re sult Performing Organization Address City/[facility]/ZIP Co de Phone Number [facility] [address] [place] [phone] * (ABNORMAL) CBC auto differential (06/17/2025 10:48 AM EDT) White Blood Count 10.3 4.8 - 10.8 X10*3/uL [facility] Red Blood Count 4.88 4.20 - 5.50 X10*6/uL [facility] Hemoglobin 14.0 12.0 - 16.0 g/dl [facility] Hematocrit 41.0 37.0 - 47.0 % [facility] Mean Corpuscular Volume 84.0 80.0 - 98.0 fL [facility] Mean Corpuscular Hemoglobin 28.7 27.0 - 33.0 pg [facility] Mean Corpuscular HGB Conc 34.1 31.0 - 35.0 g/dl [facility] Red Cell Distribution Width 12.2 11.0 - 16.0 % [facility] Platelet Count 171 160 - 400 X10*3/uL [facility] Mean Platelet Volume 11.3 9.4 - 12.3 fL [facility] Neutrophils Percent Auto 55.4 45 - 73 % [facility] Imm Gran Pct Auto 0.4 0.0 - 0.4 % [facility] Lymphocytes Percent Auto 36.4 20 - 40 % [facility] Monocytes Percent Auto 5.4 2 - 11 % [facility] Eosinophils Percent Auto 2.0 0 - 4 % [facility] Basophils Percent Auto 0.4 0 - 2 % [facility] NRBC Pct Auto 0.0 0.0 - 0.2 /100WBC [facility] Neutrophils Absolute Auto 5.7 2.0 - 8.3 x10*3/uL [facility] Imm Gran Abs Auto 0.04(H) 0.00 - 0.03 X10*3/uL [facility] Lymphocytes Absolute Auto 3.8 1.2 - 4.9 X10*3/uL [facility] Monocytes Absolute Auto 0.6 0.1 - 1.2 X10*3/uL [facility] Eosinophils Absolute Auto 0.2 0.0 - 0.4 X10*3/uL [facility] Basophils Absolute Auto 0.0 0.0 - 0.2 X10*3/uL [facility] NRBC Abs Auto 0.000 0.0 - 0.012 X10*3/uL [facility] Blood Venous blood specimen / Unknown 06/17/2025 10:48 AM EDT 06/17/2025 2:41 PM EDT Christa Topete MD LAB BLOOD ORDERABLES Final Re sult Performing Organization Address [facility] Co de Phone Number [facility] [address] [place] [phone] * Fructosamine (06/17/2025 10:48 AM EDT) Fructosamine 277 205 - 285 umol/L [facility] Comment:THIS TEST WAS PERFOR MED AT:[id number] [place] [id number] CARDENAS MD,PHD Blood Venous blood specimen / Unknown 06/17/2025 10:48 AM EDT 06/17/2025 2:41 PM EDT Christa Topete MD LAB BLOOD ORDERABLES Final Re sult Performing Organization Address [facility] Co de Phone Number [facility] [address] [place] [phone] * Lipid Panel, Standard (06/17/2025 10:48 AM EDT) Triglycerides 113 <150 mg/dL [facility] Comment:Desirable Triglyceri de: less than 150 mg/dLBorderline High Triglyceride 150-199 mg/dLHigh Triglyceride: 200-499 mg/dLVery High Triglyceride: greater than or equal to 5OO mg/dL Cholesterol 170 <200 mg/dL [facility] Comment:Desirable Cholestero l: less than 200 mg/dLBorderline High Cholesterol: 200-239 mg/dLHigh Cholesterol: greater than 239 mg/dL LDL Cholesterol Calculated 98 <100 mg/dL [facility] Comment:Desirable LDL: less than 100 mg/dLNear Optimal/Above Optimal LDL: 110- 129 mg/dLBorderline High LDL: 130-159 mg/dLHigh LDL: 160-189 mg/dLVery High LDL: greater than or equal to 190 mg/dL HDL Cholesterol 50 >40 mg/dL [facility] Comment:Desirable HDL: great er than 40 mg/dL Note: This HDL assay may give artificially low results in patients with liver disease. Blood Venous blood specimen / Unknown 06/17/2025 10:48 AM EDT 06/17/2025 2:41 PM EDT us Christa Topete MD LAB BLOOD ORDERABLES Final Re sult [facility] [address] [place] [address] [phone] * Comprehensive Metabolic Panel (06/17/2025 10:48 AM EDT) Sodium 139 135 - 145 mmol/L [facility] Potassium 4.3 3.3 - 5.1 mmol/L [facility] Chloride 104 96 - 108 mmol/L [facility] Carbon Dioxide 26 22 - 29 mmol/L [facility] Anion Gap 13 12 - 20 [facility] Urea Nitrogen (BUN) 12 9 - 16 mg/dL [facility] Creatinine, Serum 0.60 0.5 - 1.4 mg/dL [facility] Estimated Glomerular Filt Rate >60 [facility] Comment:Chronic Kidney Disea se: Estimated GFR < 60 mL/min/1.70e0Dgbmgz Kidney Disease: Estimated GFR < 15 mL/min/1.73m2 Glucose 107 60 - 115 mg/dL [facility] Calcium 9.6 8.4 - 10.2 mg/dL [facility] Bilirubin, Total 0.6 0.0 - 1.0 mg/dL [facility] Aspartate Amino Transferase 23 5 - 31 U/L [facility] Alanine Aminotransferase 15 0 - 31 U/L [facility] Total Protein 7.2 6.5 - 8.0 g/dL [facility] Albumin Level 4.3 3.5 - 5.0 g/dL [facility] Alkaline Phosphatase 72 39 - 117 U/L [facility] Blood Venous blood specimen / Unknown 06/17/2025 10:48 AM EDT 06/17/2025 2:41 PM EDT us Christa Topete MD LAB BLOOD ORDERABLES Final Re sult [facility] [address] [place] [address] [phone] * (ABNORMAL) POCT HGB A1C (06/16/2025 9:49 AM EDT) Hemoglobin A1C 7.1(A) 4.0 - 5.7 % QC Media Lot # [id number] Lot# Expiration Date Blood 06/16/2025 9:49 AM EDT us Christa [...] AM EDT Narrative 03/12/2025 9:47 AM EDT [facility] [address] [place] [address] [place] [address] Ultrasound Report Signed Patient: Kristine Mata MR#: [id number] 8 : 1965 Acct:[id number] Age/Sex: 59 / F ADM Date: 03/12/25 Loc: KAYLAH.MAMMO Attending Dr: Christa Topete MD Ordering Physician: Christa Topete MD Date of Service: 03/12/25 Procedure(s): US breast LT limited mamm only Accession Number(s): [id number] cc: Christa Topete MD EXAMINATION: MM DIAGNOSTIC [...] in OV> 03/12/2544 DD/ 3 TD/TT: 03/12/25921 Entry Level Administrative Assistant: Procedure Note Donotuseinterpreter, Image - 03/12/2025 [facility] [address] [place] [address] Ultrasound Report Signed Patient: Shakira Mata#: [id number] 8 : 1965Acct:[id number] Age/Sex: 59 / FADM Date: 03/12/25 Loc: HO.MAMMO Attending Dr: Christa Topete MD Ordering Physician: Christa Topete MD Date of Service: 03/12/25 Procedure(s): US breast LT limited mamm only Accession Number(s): [id number] cc: Christa Topete MD EXAMINATION: MM DIAGNOSTIC [...] signed by Savita Jordan DO in OV> 03/12/25 0944 DD/ 0904 TD/TT: 03/12/25921 Entry Level Administrative Assistant: us Christa Topete MD IMG US PROCEDURES Final Resul t * Pap Smear (02/06/2024 4:00 PM EDT) Swab 02/06/2024 4:00 PM EDT 02/10/2024 11:30 AM EDT [facility] - 02/25/2024 12:30 PM EDT ----- ------- Name: Kristine Mata Age/Sex: 58/F : 1965 Unit#: [id number] Attend Dr: Christa Topete MD Re02/06/24 Status: DEP REF Location: HO.CHCLNP Disch: ----- ------- SPEC : [id number] RECD: 02/10/24-1129 STATUS: GLORIA MOTTA NUM: [id number] PEÑA: 02/06/24-[address]: Christa Topete MD ENTERED: 02/10/24-0969 SP TYPE: Pap [facility] DR: ORDERED: Pap Smear Interpretation Satisfactory for evaluation. Negative for intraepithelial lesion or malignancy. Clinical Information LMP: Postmenopausal Previous PAP test: Unknown date/findings Material Received ThinPrep-Vaginal/Cervical ----- ------- Signed (signature on file) NIKI Preciado ([facility]) 02/25/24 1230 ----- ------- END OF REPORT Christa Topete MD LAB CYTOLOGY ORDERABLES Final Result Performing Organization Address [facility] Co de Phone Number [facility] [address] [place] [phone] * Hepatitis C Antibody with Reflex to HCV, RNA, Quantitative, Real-Time PCR (12/23/2023 10:11 AM EST) Hepatitis C Antibody Nonreactive Nonreactive [facility] Comment:Antibodies to HCV no t detected; does not exclude early acuteHCV infection. Blood Venous blood specimen / Unknown 12/23/2023 10:11 AM EST 12/23/2023 2:26 PM EST Christa Topete MD LAB BLOOD ORDERABLES Final Re sult Performing Organization Address [facility] Co de Phone Number [facility] [address] [place] [address] [phone] * HIV-1/2 Antigen and Antibodies, Fourth Generation, with Reflexes (12/23/2023 10:11 AM EST) HIV AB/AG Nonreactive Nonreactive [facility] Comment:HIV-1 p24 Ag and/or HIV-1/HIV-2 Ab not detected.A test result that is nonreactive does not exclude thepossibility of exposure to or infection with HIV-1 and/orHIV-2. Nonreactive results in this assay for individualswith prior exposure to HIV-1 and/or HIV-2 may be due toantigen and antibody levels that are below the limit ofdetection of this assay.The [employer] HIV Ag/Ab Combo assay result andsupplemental assay results should be interpreted inconjunction with the patient's clinical presentation,history and other laboratory results. If the results areinconsistent with clinical evidence, additional testing issuggested to confirm the result. Blood Venous blood specimen / Unknown 12/23/2023 10:11 AM EST 12/23/2023 2:26 PM EST Christa Topete MD LAB BLOOD ORDERABLES Final Re sult [facility] [address] [place] [phone] [phone] * Colonoscopy (03/14/2017) Colonoscopy Normal Normal Narrative Cydney Gottlieb - 03/14/2017 Recommended 10 year follow up Historical Provider HEALTH MAINTENANCE Final Result from Last 3 Months or Most Recently Relevant to Health Maintenance Additional Health Concerns Active Problems Noted Date Diagnosed Date Help patients manage their type 2 diabetes 09/03 Weekly blood pressure task 09/03/2025 Help patients manage their type 2 diabetes 09/03 Patient has chronic kidney disease 09/03/2025 Weekly blood pressure task 09/03/2025 Patient has chronic kidney disease 09/03/2025 Weekly blood pressure task 09/06/2025 Weekly blood pressure task 09/06/2025 Patient has chronic kidney disease 09/06/2025 Patient has chronic kidney disease 09/06/2025 Insurance [facility] [employer] Member Subscriber Plan / Payer (Ef fective 2025-Present) Name:Kristine Mata Relation to Subscriber:Self Name:Kristine Mata Payer ID:Not on file Type:Not on file Address: [address] [place] [id number] [place] [address] [facility] MEDICAID STAND ADULT Care Teams Contract Preparer Relationship Specialty Start Date End Date Christa Topete MD [address] [place] [address] PCP - General Family Medicine 09/13/21
--- OUTSIDE RECORDS SUMMARY | 2025-09-14 07:45 | XMS_ITS | Encounter Summary ---
Author Organization [employer] Address [address] [place] [address] Care Team Providers Care Operations Clerk Name Role Phone Christa Topete MD Primary Care Provider [phone] Encounter Details Date Type Department Care Team (Late st Contact Info) Description 12/04/2022 Orders Only [facility] MEDICINE [address] [place] [address] Yenni Cardenas LPN Social History Tobacco Use [...] Description 09/29/2025 11:30 AM EST Office Visit [facility] CHC MED & PEDS [address] [place] [address] Christa Topete MD [address] [place] [address] 11/02/2025 8:45 AM EST Office Visit [facility] ADULT DENTAL [address] [place] [address] Suad Cerda documented as of this encounter Visit Diagnoses Not on filedocumented in this encounter Care Teams Operations Clerk Relationship Specialty Start Date End Date Christa Topete MD [address] [place] [address] PCP - General Family Medicine 09/13/21 documented as of this encounter
--- OUTSIDE RECORDS SUMMARY | 2025-09-14 07:45 | XMS_ITS | Encounter Summary ---
Author Organization [employer] Address [address] [facility] [address] [place] [address] Care Team Providers Care Ticket Sales Agent Name Role Phone Christa Topete MD Primary Care Provider [phone] Encounter Details Date Type Department Care Team (Latest Contact Info) Description 12/14/[address] [facility] CONVERSIONS Dental, Provider, DDS Social History [...] Description 09/29/2025 11:30 AM EST Office Visit [facility] CHC MED & PEDS [address] [place] [address] Christa Topete MD [address] [place] [address] 11/02/2025 8:45 AM EST Office Visit [facility] ADULT DENTAL [address] [place] [address] Suad Cerda documented as of this encounter Visit Diagnoses Not on filedocumented in this encounter Care Teams Ticket Sales Agent Relationship Specialty Start Date End Date Christa Topete MD [address] [place] [phone] PCP - General Family Medicine 09/13/21 documented as of this encounter
--- OUTSIDE RECORDS SUMMARY | 2025-09-14 07:45 | XMS_ITS | Encounter Summary ---
Author Organization [employer] Address [address] [facility] [address] [place] [address] Care Team Providers Care Immigration Services Officer Name Role Phone Christa Topete MD Primary Care Provider [phone] Reason for Visit * Reason Comments Med Refill Encounter Details Date Type Department Care Team (Late Contact Info) Description 05/12/2023 Refill [facility]ED[facility] [address] [place], [place] [phone] Christa Topete MD [address] [place] [address] Social History Tobacco Use Types Packs/Day Years [...] Department Care Team (Late Contact Info) Description 09/29/2025 11:30 AM EST Office Visit [facility]C MED & PEDS [address] [place] [address] Christa Topete MD [address] [place] [address] 11/02/2025 8:45 AM EST Office Visit [facility] ADULT DENTAL [address] [place] [address] Suad Cerda documented as of this encounter Visit Diagnoses Not on filedocumented in this encounter Additional Health Concerns Assessment Noted Time PHQ-9 Depression Total Score: 8 02/01/20 23 9:11 AM EDT documented as of this encounter Care Teams Immigration Services Officer Relationship Specialty Start Date End Date Christa Topete MD [address] [place] [address] PCP - General Family Medicine 09/13/21 documented as of this encounter
--- OUTSIDE RECORDS SUMMARY | 2025-09-14 07:45 | XMS_ITS | Encounter Summary ---
Author Organization [employer] Address [address] [place] [address] Care Team Providers Care Testing Engineer Name Role Phone Christa Topete MD Primary Care Provider [phone] Encounter Details Date Type Department Care Team (Late st Contact Info) Description 09/04/2023 Abstract [facility] MEDICINE [address] [place] [address] Cydney Gottlieb Social History Tobacco Use Types [...] Description 09/29/2025 11:30 AM EST Office Visit [facility] CHC MED & PEDS [address] [place] [address] Christa Topete MD [address] [place], [place] [phone] 11/02/2025 8:45 AM EST Office Visit [facility] ADULT DENTAL [address] [place] [address] Suad Cerda documented as of this encounter Procedures Procedure Name Priority Date/Time Associated Diagnosis Comments HM COLONOSCOPY Routine 03/14/2017 documented in this encounter [...] documented as of this encounter Care Teams Testing Engineer Relationship Specialty Start Date End Date Christa Topete MD [address] [place] [address] PCP - General Family Medicine 09/13/21 documented as of this encounter
--- OUTSIDE RECORDS SUMMARY | 2025-09-14 07:45 | XMS_ITS | Encounter Summary ---
Author Organization [employer] Address [address] [facility] [address] [place] [address] Care Team Providers Care Client Care Consultant Name Role Phone Christa Topete MD Primary Care Provider [phone] Encounter Details Date Type Department Care Team (Latest Contact Info) Description 11/09/[address] [facility] CONVERSIONS Dental, Provider, DDS Social History [...] Description 09/29/2025 11:30 AM EST Office Visit [facility] CHC MED & PEDS [address] [place] [address] Christa Topete MD [address] [place] [address] 11/02/2025 8:45 AM EST Office Visit [facility] ADULT DENTAL [address] [place] [address] Suad Cerda documented as of this encounter Visit Diagnoses Not on filedocumented in this encounter Care Teams Client Care Consultant Relationship Specialty Start Date End Date Christa Topete MD [address] [place] [address] PCP - General Family Medicine 09/13/21 documented as of this encounter
--- OUTSIDE RECORDS SUMMARY | 2025-09-14 07:45 | XMS_ITS | Encounter Summary ---
Author Organization [employer] Address [address] [facility] [place] [address] Care Team Providers Care Marketing Operations Assistant Name Role Phone Christa Topete MD Primary Care Provider [phone] Reason for Visit * Reason Onset Date Comments Nurse Triage 02/10/2025 Encounter Details Date Type Department Care Team ([facility] st Contact Info) Description 02/10/2025 Telephone [facility] MEDICINE [address] [place] [address] Christa Topete MD [address] [place] [address] Nurse Triage Social History Tobacco Use Types [...] is your housing situation today? I have oumoutemtiope corbin 08/13/[address] you [...] is able to raise the arm and hot die picker items with hand. Pt is taking motrin and applying heat with some relief. ASK apt withDr. Crowe @ 1100am. Pt is offered to come to [facility] today to be seen by provider but [...] Description 09/29/2025 11:30 AM EST Office Visit [facility] CHC MED & PEDS [address] [place] [address] Christa Topete MD [address] [place] [address] 11/02/2025 8:45 AM EST Office Visit [facility] ADULT DENTAL [address] [place] [address] Suad Cerda documented as of this encounter Visit Diagnoses Not on filedocumented in this encounter Additional Health Concerns Assessment Noted Time PHQ-9 Depression Total Score: 3 09/28/20 24 10:48 AM EST documented as of this encounter Care Teams Marketing Operations Assistant Relationship Specialty Start Date End Date Christa Topete MD [address] [place] [address] PCP - General Family Medicine 09/13/21 documented as of this encounter
== END 2025-09-14 07:43 | disposition home or self-care (01) ==
LOC: HO.MAMMO 07:42
PROVIDERS: Visit Provider Family Medicine
DX: N64.89 Other specified disorders of breast (principal)
CPT/HCPCS: 77061; 77065

== ENCOUNTER → 2025-09-14 08:30 | Outpatient (BNV) | payer OTHER, SELFPAY | PROVIDERS: Visit Provider Radiology Body Imaging | DX: R92.8 Other abnormal and inconclusive findings on diagnostic imaging of breast (principal) | CPT/HCPCS: 77061; 77065 ==

== ENCOUNTER 2025-09-29 11:59 | Outpatient (REF) | payer OTHER, SELFPAY ==
[2025-09-29 15:22] LABS: MANUAL DIFF FLAG NO
[2025-09-29 15:33] LABS: Hematocrit 43.7 % (37.0-47.0); Hemoglobin 15.0 g/dl (12.0-16.0); Imm Gran Abs Auto 0.04 X10*3/uL (0.00-0.03); Imm Gran Pct Auto 0.3 % (0.0-0.4); Lymphocytes Absolute Auto 4.3 X10*3/uL (1.2-4.9); Mean Corpuscular HGB Conc 34.3 g/dl (31.0-35.0); Mean Corpuscular Hemoglobin 28.5 pg (27.0-33.0); Mean Corpuscular Volume 82.9 fL (80.0-98.0); NRBC Abs Auto 0.000 X10*3/uL (0.0-0.012); NRBC Pct Auto 0.0 /100WBC (0.0-0.2); Platelet Count 223 X10*3/uL (160-400); Red Blood Count 5.27 X10*6/uL (4.20-5.50); White Blood Count 12.1 X10*3/uL (4.8-10.8)
[2025-09-29 16:40] LABS: Alanine Aminotransferase 31 U/L (0-31); Albumin Level 4.5 g/dL (3.5-5.0); Alkaline Phosphatase 69 U/L (39-117); Anion Gap 14 (12-20); Aspartate Amino Transferase 33 U/L (5-31); Blood Urea Nitrogen 10 mg/dL (9-16); Calcium 9.6 mg/dL (8.4-10.2); Carbon Dioxide 25 mmol/L (22-29); Chloride 106 mmol/L (96-108); Estimated Glomerular Filt Rate > 60; Iron 64 mcg/dL (30-160); Percent Iron Saturation 20 % (15-50); Potassium 3.9 mmol/L (3.3-5.1); Sodium 141 mmol/L (135-145); Total Iron Binding Capacity 321 mcg/dL (228-428); Total Protein 7.5 g/dL (6.5-8.0); Unsaturated Iron Binding 257 ug/dL
[2025-09-29 16:42] LABS: Ferritin 122 ng/mL (10-250)
[2025-09-29 17:28] LABS: Folate 12.4 ng/mL (> or = 4.0); Vitamin B12 474 pg/mL (200-900)
[2025-09-29 18:09] LABS: Free T4 (Free Thyroxine) 1.14 ng/dL (0.71-1.85)
== END 2025-09-29 12:00 | disposition home or self-care (01) ==
LOC: HO.CHCLDS 11:59
PROVIDERS: Visit Provider Family Medicine
DX: R53.83 Other fatigue (principal)
CPT/HCPCS: 36415; 80053; 82306; 82607; 82728; 82746; 83540; 83921; 84439; 84443; 85025